=== PATIENT | male | born 1950 | race Caucasian/White ===

== ENCOUNTER 2022-10-25 11:56 | Emergency (ER) | payer OTHER ==
--- OUTSIDE RECORDS SUMMARY | 2022-10-25 12:03 | XMS REPORT | Continuity of Care Document ---
:1950 Author Organization [facility] t Address [address] [place] [address] Care Team Providers Name Role Phone Jenise Abebe MD Primary Care Physician KYLE_Magali Attending Clinician Unavailable Rosie SAENZ, Vivian Garcia Attending Clinician Jenise Abebe Attending Clinician [phone] AIDAN ESTRADA Attending Clinician Unavailable Frank Castano Attending Clinician [phone] rosalind Attending Clinician Unavailable ROSALIND Admitting Clinician Unavailable AIDAN ESTRADA Admitting Clinician Unavailable MD VIVIAN VELEZ Admitting Clinician Unavailable rosalind Admitting Clinician Unavailable Payers Payer Name Policy Type Policy Number Effective Date Expiration Date S dasia [facility] - [id number] [facility] (MEDICARE REPLACEMENT/ADVANTA GE - PPO) [facility] [id number] 2020 (MEDICARE 00:00:00 REPLACEMENT/ADVANTA GE - PPO) [employer] - NAP [id number] 2002 00:00:00 Problems Condition Condition Condition Status Onset Resolution Last Treating Co mments Source Name Details Category Date Date Treatment Clinician Date Restless Restless Problem Active [facility] legs Legs 2-14 [facility]: ty [facility] Bilateral Bilateral Problem Active [facility] tinnitus Tinnitus 2-14 Commun i 00:00: ty 00 [facility] Clin[facility] CPAP CPAP Disease Active Overview: Method i (continuou (continuou 08-[address] s positive s positive 00:00: g of this Hospita airway airway 00 note l pressure) pressure) might be dependence dependence different from the original. Currently not using Dental Dental Disease Active Overview: [facility] i crown crown 08-[address] present present 00:00: g of this Hospi ta 00 note l might be different from the original. 4 teeth w/gold crowns 1 tooth w/epoxy crown Depression Depression Disease Active Overview : [facility]i 08-[address] 00:00: g of this Hospita 00 note l might be different from the original. Mild controlle d by Rx med GERD GERD Disease Active Overview: Method i (gastroeso (gastroeso 08-[address] phageal phageal 00:00: g of this Hospi ta reflux reflux 00 note l disease) disease) might be different from the original. 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 Very mild symptoms Hyperchole Hyperchole Disease Active Overview : Methodi steremia steremia 08-[address] 00:00: g of this Hospita 00 note l might be different from the original. Controlle d with Rx med Hypertensi Hypertensi Disease Active M ethodi on on 08-30 00:00: Hospita 00 l Hypothyroi Hypothyroi Disease Active Overview : [facility]i dism dism 08-[address] 00:00: g of this Hospita 00 note l might be different from the original. Controlle d by Rx med Lower back Lower back Disease Active Overview : [facility] pain pain 08-[address] 00:00: g of this Hospita 00 note l might be different from the original. Pain has steadily intensifi ed Vision Vision Disease Active Overview: [facility] i loss loss 08-[address] 00:00: g of this Hospita 00 note l might be different from the original. Wear prescript ion glasses Sleep Sleep Disease Active Overview: [facility] i apnea apnea 08-[address] 00:00: g of this Hospita 00 note l might be different from the original. Gotten much better over past 18 mos Anesthesia Anesthesia Disease Active Overview : Method[facility] - Form[facility] 00:00: g of this Hospita 00 note l might be different from the original. LOW BP W/ COLONOSCO PY PROCEDURE . Lumbar Lumbar Disease Active Overview: Method i stenosis stenosis 07-[address] with with 00:00: g of this Hospita neurogenic neurogenic 00 note l claudicati claudicati might be on on different from the original. Added automatic ally from request for surgery [id number] Lumbar Lumbar Disease Active Overview: Method i radiculopa radiculopa 07-[address] thy thy 00:00: g of this Hospita 00 note l might be different from the original. 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 00:00: ty 00 [facility] Cervical Cervical Problem Active 2019-02 [facility] disc Disc 1-12 [facility]i disorder Disorder 00:00: ty 00 Hospita Clinics Low back Low Back Problem Active [facility] pain Pain 8-11 [facility]i 00:00: ty 00 [facility] Paresthesi Paresthesi Problem Active S [facility] a of lower a of Lower 8-11 Co [facility] extremity Extremity 00:00: ty 00 Hospita Clinics Otitis Otitis Problem Active 2018-02 [place] externa Externa 0-07 Communi 00:00: ty 00 [facility] Hypothyroi Hypothyroi Problem Active S [facility] dism dism 6-14 Communi 00:00: ty 00 [facility] Hyperlipid Hyperlipid Problem Active S [facility]y emia emia 6-14 Communi 00:00: ty 00 [facility] Essential Essential Problem Active [facility] hypertensi Hypertensi 08-08 [facility] on on 00:00: ty 00 [facility] Malaise Malaise Problem Active [place] 08-08 Communi 00:00: ty 00 [facility] Edema Edema Problem Active [place] 08-08 Communi 00:00: ty 00 [facility] Decreased Decreased Problem Active [facility] testostero Testostero 08-08 [facility] ne level ne Level 00:00: ty 00 [facility] Screening Screening Problem Active [facility] for for 08-08 Communi malignant Malignant 00:00: ty neoplasm Neoplasm 00 Hospit [facility] of of l prostate Prostate Clinic s Long-term Long-term Problem Active [facility] drug Drug 07-26 [facility]i therapy Therapy 00:00: ty 00 [facility] Allergies, Adverse Reactions, Alerts This patient has no known allergies or adverse reactions. Family History Family Member Diagnosis Comments Start Date Stop Date Source Natural mother Heart disease [facility] Natural mother Hypertension [facility] Social History Social Habit Start Date Stop Date Quantity Comments Source Gender identity 2021-04-21 Identifies as male M ethodist 09:01:57 gender (finding) [facility] Sexual orientation 2021-04-21 Heterosexual Meth odist 09:01:57 (finding) Hospital History of Social 2021-10-26 2021-10-26 [facility] function 00:00:00 00:00:00 Hospital Alcohol intake 2021-10-26 2021-10-26 Current drinker of Me thodist 00:00:00 00:00:00 alcohol (finding) [facility] Tobacco use and 2021-05-18 2021-05-18 Smokeless tobacco [facility] exposure 00:00:00 00:00:00 non-user Hospital Alcohol Comment 2021-04-20 2021-04-20 2x per week [facility] 00:00:00 00:00:00 Hospital Sex Ass[birth year] At [birth year] M [facility] 00:00:00 00:00:00 Hospital Smoking Status Start Date Stop Date Source Former Smoker [facility] Never smoked tobacco [facility] Medications Ordered Filled Start Stop Current Ordering Indication Dosage Frequency Signature Comments Components Source Medication Medication Date Date Medication? Clinician (SIG) Name Name Paloma 40 Paloma 40 No Paloma 40 [place] mg/mL mg/mL 1-12 mg/mL Communi suspension suspension 11:36: suspension ty for for 31 for Hospita injectionTa injectionTa injectionT l ke 2 mL by ke 2 mL by christina 2 mL Clinics injection injection by route. route. injection route. triamterene Yes 1{tbl} QD Take 1 [facility] -hydrochlor 10-[address] othiazid 10:52: mouth Hospita (MAXZIDE) 02 daily. l 75-50 mg per tablet amlodipine- Yes 1{tbl} QD Take 1 [facility] valsartan - tablet by st (EXFORGE) 10:52: mouth Hospita 10-320 mg 02 daily. l per tablet cetirizine Yes 10mg QD Take 10 mg M ethodi (ZyrTEC) 10 10-[address] MG tablet 10:52: daily. Hospit a l folic acid Yes 1mg QD Take 1 mg [facility] (FOLVITE) 1 10-[address] MG tablet 10:52: daily. Hospit a 02 l CHOLECALCIF Yes [id number] Q7D Take Meth danai LUIS FERNANDO, 10-[address] VITAMIN D3, 10:52: Units by Ho spita ORAL 02 mouth once l a week. Every Saturday venlafaxine Yes 150mg QD Take 1 Met hodi XR 6-[address] (EFFEXOR-XR 00:00: mouth Hospi ta ) 150 MG 24 00 daily. l hr capsule allopurinoL 0 Yes 300mg QD Take 1 Met hodi (ZYLOPRIM) 5-[address] 300 MG 00:00: mouth Hospita tablet 00 daily. l atorvastati 0 Yes 20mg QD Take 20 mg Methodi n (LIPITOR) -[address] 20 mg 00:00: daily. Hospita tablet 00 l levothyroxi 0 Yes 175ug QD Take 1 Met hodi ne 4-[address] (SYNTHROID) 00:00: mouth Hospi ta 175 mcg 00 daily. l tablet omeprazole 0 Yes 40mg QD Take 1 Metho di (PriLOSEC) 4-[address] 40 MG 00:00: mouth Hospita capsule 00 daily. l cholecalcif cholecalcif No 1capsul Q1W cholecalci [place] luis fernando luis fernando e(s) ferol Communi (vitamin (vitamin (vitamin ty D3) 1,250 D3) 1,250 D3) 1,250 Hospita mcg (50,000 mcg (50,000 mcg l unit) unit) (50,000 Clinics capsule capsule unit) Take 1 Take 1 capsule capsule capsule Take 1 every week every week capsule by oral by oral every week route for route for by oral 90 days. 90 days. route for 90 days. desonide desonide No desonide [facility] 0.05 % 0.05 % 0.05 % Communi topical topical topical ty cream APPLY cream APPLY cream Hospita SPARINGLY SPARINGLY APPLY l AND RUB AND RUB SPARINGLY Clin ics GENTLY INTO GENTLY INTO AND RUB THE THE GENTLY AFFECTED AFFECTED INTO THE AREA(S) BY AREA(S) BY AFFECTED TOPICAL TOPICAL AREA(S) BY ROUTE 2 ROUTE 2 TOPICAL TIMES PER TIMES PER ROUTE 2 DAY DAY TIMES PER DAY Effexor XR Effexor XR No 1capsul Q1D Effexor XR [place] 75 mg 75 mg e(s) 75 mg Communi capsule,ext capsule,ext capsule,ex ty ended ended tended Hospita release release release l Take 1 Take 1 Take 1 Clinics capsule capsule capsule every day every day every day by oral by oral by oral route. route. route. folic acid folic acid No folic acid [place] 1 mg tablet 1 mg tablet 1 mg C ommuni TAKE 1 TAKE 1 tablet ty TABLET BY TABLET BY TAKE 1 Hos racquel MOUTH EVERY MOUTH EVERY TABLET BY l DAY DAY MOUTH Clinics EVERY DAY ketoconazol ketoconazol No ketoconazo [place] e 2 % e 2 % le 2 % Communi shampoo shampoo shampoo ty APPLY TO APPLY TO APPLY TO Hos racquel THE THE THE l AFFECTED AFFECTED AFFECTED Cli nics AREA, AREA, AREA, LATHER, LATHER, LATHER, LEAVE IN LEAVE IN LEAVE IN PLACE FOR [address] FOR MIN, AND MIN, AND 5 MIN, AND THEN RINSE THEN RINSE THEN RINSE OFF WITH OFF WITH OFF WITH WATER DAILY WATER DAILY WATER DAILY levothyroxi levothyroxi No levothyrox [place] ne 175 mcg ne 175 mcg ine 175 Communi tablet TAKE tablet TAKE mcg tablet ty 1 TABLET BY 1 TABLET BY TAKE 1 Hospita MOUTH EVERY MOUTH EVERY TABLET BY l DAY DAY MOUTH Clinics EVERY DAY meloxicam meloxicam No meloxicam [place] 15 mg 15 mg 15 mg Communi tablet TAKE tablet TAKE tablet ty 1 TABLET BY 1 TABLET BY TAKE 1 Hospita MOUTH EVERY MOUTH EVERY TABLET BY l DAY DAY MOUTH Clinics EVERY DAY triamterene triamterene No triamteren [place] 75 75 e 75 Communi mg-hydrochl mg-hydrochl mg-hydroch ty orothiazide orothiazide lorothiazi Hospita 50 mg 50 mg de 50 mg l tablet TAKE tablet TAKE tablet Clinics 1 TABLET BY 1 TABLET BY TAKE 1 MOUTH EVERY MOUTH EVERY TABLET BY DAY DAY MOUTH EVERY DAY allopurinol allopurinol No allopurino [place] 100 mg 100 mg l 100 mg Communi tablet TAKE tablet TAKE tablet ty 1 TABLET BY 1 TABLET BY TAKE 1 Hospita MOUTH EVERY MOUTH EVERY TABLET BY l DAY DAY MOUTH Clinics EVERY DAY amlodipine amlodipine No amlodipine [place] 10 10 10 Communi mg-valsarta mg-valsarta mg-valsart ty n 320 mg n 320 mg an 320 mg Ho spita tablet TAKE tablet TAKE tablet l 1 TABLET BY 1 TABLET BY TAKE 1 Clinics MOUTH EVERY MOUTH EVERY TABLET BY DAY DAY MOUTH EVERY DAY atorvastati atorvastati No atorvastat [place] n 10 mg n 10 mg in 10 mg Commu ni tablet TAKE tablet TAKE tablet ty 1 TABLET BY 1 TABLET BY TAKE 1 Hospita MOUTH EVERY MOUTH EVERY TABLET BY l DAY DAY MOUTH Clinics EVERY DAY cholecalcif cholecalcif No cholecalci [place] luis fernando luis fernando ferol Communi (vitamin (vitamin (vitamin ty D3) 1,250 D3) 1,250 D3) 1,250 Hospita mcg (50,000 mcg (50,000 mcg l unit) unit) (50,000 Clinics capsule capsule unit) TAKE 1 TAKE 1 capsule CAPSULE CAPSULE TAKE 1 EVERY WEEK EVERY WEEK CAPSULE BY ORAL BY ORAL EVERY WEEK ROUTE FOR ROUTE FOR BY ORAL 90 DAYS. 90 DAYS. ROUTE FOR 90 DAYS. folic acid folic acid No folic acid [place] 1 mg tablet 1 mg tablet 1 mg C ommuni TAKE 1 TAKE 1 tablet ty TABLET BY TABLET BY TAKE 1 Hos racquel MOUTH EVERY MOUTH EVERY TABLET BY l DAY DAY MOUTH Clinics EVERY DAY hydrocortis hydrocortis No hydrocorti [place] one 2.5 % one 2.5 % sone 2.5 % Communi lotion lotion lotion ty APPLY TO APPLY TO APPLY TO Hos racquel AFFECTED AFFECTED AFFECTED l AREA TWICE AREA TWICE AREA TWICE Clinics A DAY A DAY A DAY NEEDED WHEN NEEDED WHEN NEEDED FLARED RED FLARED RED WHEN FLARED RED ketoconazol ketoconazol No ketoconazo [place] e 2 % e 2 % le 2 % Communi shampoo shampoo shampoo ty APPLY TO APPLY TO APPLY TO Hos racquel THE THE THE l AFFECTED AFFECTED AFFECTED Cli nics AREA, AREA, AREA, LATHER, LATHER, LATHER, LEAVE IN LEAVE IN LEAVE IN PLACE FOR [address] FOR MIN, AND MIN, AND 5 MIN, AND THEN RINSE THEN RINSE THEN RINSE OFF WITH OFF WITH OFF WITH WATER DAILY WATER DAILY WATER DAILY levothyroxi levothyroxi No levothyrox [place] ne 175 mcg ne 175 mcg ine 175 Communi tablet TAKE tablet TAKE mcg tablet ty 1 TABLET BY 1 TABLET BY TAKE 1 Hospita MOUTH EVERY MOUTH EVERY TABLET BY l DAY DAY MOUTH Clinics EVERY DAY meloxicam meloxicam No meloxicam [place] 15 mg 15 mg 15 mg Communi tablet TAKE tablet TAKE tablet ty 1 TABLET BY 1 TABLET BY TAKE 1 Hospita MOUTH EVERY MOUTH EVERY TABLET BY l DAY DAY MOUTH Clinics EVERY DAY triamterene triamterene No triamteren [place] 75 75 e 75 Communi mg-hydrochl mg-hydrochl mg-hydroch ty orothiazide orothiazide lorothiazi Hospita 50 mg 50 mg de 50 mg l tablet TAKE tablet TAKE tablet Clinics 1 TABLET BY 1 TABLET BY TAKE 1 MOUTH EVERY MOUTH EVERY TABLET BY DAY DAY MOUTH EVERY DAY venlafaxine venlafaxine No 1capsul Q1D venlafaxin [place] ER 150 mg ER 150 mg e(s) e ER 150 C om[facility]i capsule,ext capsule,ext mg t y ended ended capsule,ex Hospita release 24 release 24 tended l hr Take 1 hr Take 1 release 24 Clinics capsule capsule hr Take 1 every day every day capsule by oral by oral every day route. route. by oral route. allopurinol allopurinol No allopurino [place] 100 mg 100 mg l 100 mg Communi tablet TAKE tablet TAKE tablet ty 1 TABLET BY 1 TABLET BY TAKE 1 Hospita MOUTH EVERY MOUTH EVERY TABLET BY l DAY DAY MOUTH Clinics EVERY DAY allopurinol allopurinol No 1 Q1D allopurino [place] 300 mg 300 mg l 300 mg Communi tablet Take tablet Take tablet ty 1 tablet 1 tablet Take 1 Hospi ta every day every day tablet l by oral by oral every day Clin ics route. route. by oral route. amlodipine amlodipine No amlodipine [place] 10 10 10 Communi mg-valsarta mg-valsarta mg-valsart ty n 320 mg n 320 mg an 320 mg Ho spita tablet TAKE tablet TAKE tablet l 1 TABLET BY 1 TABLET BY TAKE 1 Clinics MOUTH EVERY MOUTH EVERY TABLET BY DAY DAY MOUTH EVERY DAY atorvastati atorvastati No atorvastat [place] n 10 mg n 10 mg in 10 mg Commu ni tablet TAKE tablet TAKE tablet ty 1 TABLET BY 1 TABLET BY TAKE 1 Hospita MOUTH EVERY MOUTH EVERY TABLET BY l DAY DAY MOUTH Clinics EVERY DAY cholecalcif cholecalcif No cholecalci [place] luis fernando luis fernando ferol Communi (vitamin (vitamin (vitamin ty D3) 1,250 D3) 1,250 D3) 1,250 Hospita mcg (50,000 mcg (50,000 mcg l unit) unit) (50,000 Clinics capsule capsule unit) TAKE 1 TAKE 1 capsule CAPSULE CAPSULE TAKE 1 EVERY WEEK EVERY WEEK CAPSULE BY ORAL BY ORAL EVERY WEEK ROUTE FOR ROUTE FOR BY ORAL 90 DAYS. 90 DAYS. ROUTE FOR 90 DAYS. folic acid folic acid No folic acid [place] 1 mg tablet 1 mg tablet 1 mg C om[facility]i TAKE 1 TAKE 1 tablet ty TABLET BY TABLET BY TAKE 1 Hos racquel MOUTH EVERY MOUTH EVERY TABLET BY l DAY DAY MOUTH Clinics EVERY DAY hydrocortis hydrocortis No hydrocorti [place] one 2.5 % one 2.5 % sone 2.5 % Communi lotion lotion lotion ty APPLY TO APPLY TO APPLY TO Hos racquel AFFECTED AFFECTED AFFECTED l AREA TWICE AREA TWICE AREA TWICE Clinics A DAY A DAY A DAY NEEDED WHEN NEEDED WHEN NEEDED FLARED RED FLARED RED WHEN FLARED RED ketoconazol ketoconazol No ketoconazo [place] e 2 % e 2 % le 2 % Communi shampoo shampoo shampoo ty APPLY TO APPLY TO APPLY TO Hos racquel THE THE THE l AFFECTED AFFECTED AFFECTED Cli nics AREA, AREA, AREA, LATHER, LATHER, LATHER, LEAVE IN LEAVE IN LEAVE IN PLACE FOR [address] FOR MIN, AND MIN, AND 5 MIN, AND THEN RINSE THEN RINSE THEN RINSE OFF WITH OFF WITH OFF WITH WATER DAILY WATER DAILY WATER DAILY levothyroxi levothyroxi No levothyrox [place] ne 175 mcg ne 175 mcg ine 175 Communi tablet TAKE tablet TAKE mcg tablet ty 1 TABLET BY 1 TABLET BY TAKE 1 Hospita MOUTH EVERY MOUTH EVERY TABLET BY l DAY DAY MOUTH Clinics EVERY DAY meloxicam meloxicam No meloxicam [place] 15 mg 15 mg 15 mg Communi tablet TAKE tablet TAKE tablet ty 1 TABLET BY 1 TABLET BY TAKE 1 Hospita MOUTH EVERY MOUTH EVERY TABLET BY l DAY DAY MOUTH Clinics EVERY DAY triamterene triamterene No triamteren [place] 75 75 e 75 Communi mg-hydrochl mg-hydrochl mg-hydroch ty orothiazide orothiazide lorothiazi Hospita 50 mg 50 mg de 50 mg l tablet TAKE tablet TAKE tablet Clinics 1 TABLET BY 1 TABLET BY TAKE 1 MOUTH EVERY MOUTH EVERY TABLET BY DAY DAY MOUTH EVERY DAY venlafaxine venlafaxine No venlafaxin [place] ER 150 mg ER 150 mg e ER 150 C [facility]i capsule,ext capsule,ext mg t y ended ended capsule,ex Hospita release 24 release 24 tended l hr Take 1 hr Take 1 release 24 Clinics capsule capsule hr Take 1 every day every day capsule by oral by oral every day route. route. by oral route. allopurinol allopurinol No allopurino [place] 300 mg 300 mg l 300 mg Communi tablet Take tablet Take tablet ty 1 tablet 1 tablet Take 1 Hospi ta every day every day tablet l by oral by oral every day Clin ics route. route. by oral route. amlodipine amlodipine No amlodipine [place] 10 10 10 Communi mg-valsarta mg-valsarta mg-valsart ty n 320 mg n 320 mg an 320 mg Ho spita tablet TAKE tablet TAKE tablet l 1 TABLET BY 1 TABLET BY TAKE 1 Clinics MOUTH EVERY MOUTH EVERY TABLET BY DAY DAY MOUTH EVERY DAY atorvastati atorvastati No atorvastat [place] n 10 mg n 10 mg in 10 mg Commu ni tablet TAKE tablet TAKE tablet ty 1 TABLET BY 1 TABLET BY TAKE 1 Hospita MOUTH EVERY MOUTH EVERY TABLET BY l DAY DAY MOUTH Clinics EVERY DAY cholecalcif cholecalcif No cholecalci [place] luis fernando luis fernando hoff Andreyi (vitamin (vitamin (vitamin ty D3) 1,250 D3) 1,250 D3) 1,250 Hospita mcg (50,000 mcg (50,000 mcg l unit) unit) (50,000 Clinics capsule capsule unit) TAKE 1 TAKE 1 capsule CAPSULE CAPSULE TAKE 1 EVERY WEEK EVERY WEEK CAPSULE BY ORAL BY ORAL EVERY WEEK ROUTE FOR ROUTE FOR BY ORAL 90 DAYS. 90 DAYS. ROUTE FOR 90 DAYS. desonide desonide No desonide [facility] 0.05 % 0.05 % 0.05 % Communi topical topical topical ty cream us cream us cream us [facility] bid bid bid l sparingly sparingly sparingly Clinics prn never prn never prn never to face to face to face folic acid folic acid No folic acid [place] 1 mg tablet 1 mg tablet 1 mg C [facility]i TAKE 1 TAKE 1 tablet ty TABLET BY TABLET BY TAKE 1 Hos [facility]quel MOUTH EVERY MOUTH EVERY TABLET BY l DAY DAY MOUTH Clinics EVERY DAY hydrocortis hydrocortis No hydrocorti [place] one 2.5 % one 2.5 % sone 2.5 % Communi lotion lotion lotion ty APPLY TO APPLY TO APPLY TO [facility] AFFECTED AFFECTED AFFECTED l AREA TWICE AREA TWICE AREA TWICE Clinics A DAY A DAY A DAY NEEDED WHEN NEEDED WHEN NEEDED FLARED RED FLARED RED WHEN FLARED RED ketoconazol ketoconazol No ketoconazo [place] e 2 % e 2 % le 2 % Communi shampoo shampoo shampoo ty APPLY TO APPLY TO APPLY TO Hos racquel THE THE THE l AFFECTED AFFECTED AFFECTED Cli nics AREA, AREA, AREA, LATHER, LATHER, LATHER, LEAVE IN LEAVE IN LEAVE IN PLACE FOR [address] FOR MIN, AND MIN, AND 5 MIN, AND THEN RINSE THEN RINSE THEN RINSE OFF WITH OFF WITH OFF WITH WATER DAILY WATER DAILY WATER DAILY levothyroxi levothyroxi No levothyrox [place] ne 175 mcg ne 175 mcg ine 175 Communi tablet TAKE tablet TAKE mcg tablet ty 1 TABLET BY 1 TABLET BY TAKE 1 Hospita MOUTH EVERY MOUTH EVERY TABLET BY l DAY DAY MOUTH Clinics EVERY DAY meloxicam meloxicam No meloxicam [place] 15 mg 15 mg 15 mg Communi tablet TAKE tablet TAKE tablet ty 1 TABLET BY 1 TABLET BY TAKE 1 Hospita MOUTH EVERY MOUTH EVERY TABLET BY l DAY DAY MOUTH Clinics EVERY DAY tadalafil tadalafil No 1 tadalafil [place] 10 mg 10 mg 10 mg Communi tablet Take tablet Take tablet ty 1 tablet 1 tablet Take 1 Hospi ta every 72 every 72 tablet l hours by hours by every 72 Cli nics oral route oral route hours by as needed. as needed. oral route as needed. triamterene triamterene No triamteren [place] 75 75 e 75 Communi mg-hydrochl mg-hydrochl mg-hydroch ty orothiazide orothiazide lorothiazi Hospita 50 mg 50 mg de 50 mg l tablet TAKE tablet TAKE tablet Clinics 1 TABLET BY 1 TABLET BY TAKE 1 MOUTH EVERY MOUTH EVERY TABLET BY DAY DAY MOUTH EVERY DAY venlafaxine venlafaxine No venlafaxin [place] ER 150 mg ER 150 mg e ER 150 C [facility] capsule,ext capsule,ext mg t y ended ended capsule,ex Hospita release 24 release 24 tended l hr Take 1 hr Take 1 release 24 Clinics capsule capsule hr Take 1 every day every day capsule by oral by oral every day route. route. by oral route. Wellbutrin Wellbutrin No 1 Q1D Wellbutrin [place] XL 150 mg XL 150 mg XL 150 mg Communi 24 hr 24 hr 24 hr ty tablet, tablet, tablet, Hospit a extended extended extended l release release release Clinic s Take 1 Take 1 Take 1 tablet tablet tablet every day every day every day by oral by oral by oral route. route. route. allopurinol allopurinol No allopurino [place] 300 mg 300 mg l 300 mg Communi tablet Take tablet Take tablet ty 1 tablet 1 tablet Take 1 Hospi ta every day every day tablet l by oral by oral every day Clin ics route. route. by oral route. amlodipine amlodipine No amlodipine [place] 10 10 10 Communi mg-valsarta mg-valsarta mg-valsart ty n 320 mg n 320 mg an 320 mg Ho spita tablet TAKE tablet TAKE tablet l 1 TABLET BY 1 TABLET BY TAKE 1 Clinics MOUTH EVERY MOUTH EVERY TABLET BY DAY DAY MOUTH EVERY DAY atorvastati atorvastati No atorvastat [place] n 10 mg n 10 mg in 10 mg Commu ni tablet TAKE tablet TAKE tablet ty 1 TABLET BY 1 TABLET BY TAKE 1 Hospita MOUTH EVERY MOUTH EVERY TABLET BY l DAY DAY MOUTH Clinics EVERY DAY cholecalcif cholecalcif No cholecalci [place] l[facility] fernando hoff Communi (vitamin (vitamin (vitamin ty D3) 1,250 D3) 1,250 D3) 1,250 Hospita mcg (50,000 mcg (50,000 mcg l unit) unit) (50,000 Clinics capsule capsule unit) TAKE 1 TAKE 1 capsule CAPSULE CAPSULE TAKE 1 EVERY WEEK EVERY WEEK CAPSULE BY ORAL BY ORAL EVERY WEEK ROUTE FOR ROUTE FOR BY ORAL 90 DAYS. 90 DAYS. ROUTE FOR 90 DAYS. desonide desonide No desonide [facility] [place] 0.05 % 0.05 % 0.05 % Communi topical topical topical ty cream us cream us cream us [facility] bid bid bid l sparingly sparingly sparingly Clinics prn never prn never prn never to face to face to face folic acid folic acid No folic acid [place] 1 mg tablet 1 mg tablet 1 mg [facility] TAKE 1 TAKE 1 tablet ty TABLET BY TABLET BY TAKE 1 [facility] MOUTH EVERY MOUTH EVERY TABLET BY l DAY DAY MOUTH Clinics EVERY DAY hydrocortis hydrocortis No hydrocorti [place] one 2.5 % one 2.5 % sone 2.5 % Communi lotion lotion lotion ty APPLY TO APPLY TO APPLY TO [facility] AFFECTED AFFECTED AFFECTED l AREA TWICE AREA TWICE AREA TWICE Clinics A DAY A DAY A DAY NEEDED WHEN NEEDED WHEN NEEDED FLARED RED FLARED RED WHEN FLARED RED ketoconazol ketoconazol No ketoconazo [place] e 2 % e 2 % le 2 % [facility] shampoo shampoo shampoo ty APPLY TO APPLY TO APPLY TO [facility] THE THE THE l AFFECTED AFFECTED AFFECTED Cli nics AREA, AREA, AREA, LATHER, LATHER, LATHER, LEAVE IN LEAVE IN LEAVE IN PLACE FOR [address] FOR MIN, AND MIN, AND 5 MIN, AND THEN RINSE THEN RINSE THEN RINSE OFF WITH OFF WITH OFF WITH WATER DAILY WATER DAILY WATER DAILY levothyroxi levothyroxi No levothyrox [place] ne 175 mcg ne 175 mcg ine 175 [facility] tablet TAKE tablet TAKE mcg tablet ty 1 TABLET BY 1 TABLET BY TAKE 1 Hospita MOUTH EVERY MOUTH EVERY TABLET BY l DAY DAY MOUTH Clinics EVERY DAY meloxicam meloxicam No meloxicam [place] 15 mg 15 mg 15 mg [facility] tablet TAKE tablet TAKE tablet ty 1 TABLET BY 1 TABLET BY TAKE 1 Hospita MOUTH EVERY MOUTH EVERY TABLET BY l DAY DAY MOUTH Clinics EVERY DAY tadalafil tadalafil No 1 tadalafil [place] 10 mg 10 mg 10 mg [facility] tablet Take tablet Take tablet ty 1 tablet 1 tablet Take 1 Hospi ta every 72 every 72 tablet l hours by hours by every 72 Cli nics oral route oral route hours by as needed. as needed. oral route as needed. triamterene triamterene No triamteren [place] 75 75 e 75 [facility]i mg-hydrochl mg-hydrochl mg-hydroch ty orothiazide [facility]thiazide [facility] 50 mg 50 mg de 50 mg l tablet TAKE tablet TAKE tablet Clinics 1 TABLET BY 1 TABLET BY TAKE 1 MOUTH EVERY MOUTH EVERY TABLET BY DAY DAY MOUTH EVERY DAY venlafaxine venlafaxine No venlafaxin [place] ER 150 mg ER 150 mg e ER 150 [facility] capsule,ext capsule,ext mg t y ended ended capsule,ex [facility]osp[facility] release 24 release 24 tended l hr Take 1 hr Take 1 release 24 Clinics capsule capsule hr Take 1 every day every day capsule by oral by oral every day route. route. by oral route. Wellbutrin Wellbutrin No 1 Q1D Wellbutrin [place] XL 150 mg XL 150 mg XL 150 mg [facility] 24 hr 24 hr 24 hr ty tablet, tablet, tablet, Hospit a extended extended extended l release release release Clinic s Take 1 Take 1 Take 1 tablet tablet tablet every day every day every day by oral by oral by oral route. route. route. allopurinol allopurinol No allopurino [place] 300 mg 300 mg l 300 mg [facility] tablet Take tablet Take tablet ty 1 tablet 1 tablet Take 1 Hospi ta every day every day tablet l by oral by oral every day Clin ics route. route. by oral route. amlodipine amlodipine No amlodipine [place] 10 10 10 [facility] mg-valsarta mg-valsarta mg-valsart ty n 320 mg n 320 mg an 320 mg [facility] tablet TAKE tablet TAKE tablet l 1 TABLET BY 1 TABLET BY TAKE 1 Clinics MOUTH EVERY MOUTH EVERY TABLET BY DAY DAY MOUTH EVERY DAY atorvastati atorvastati No atorvastat [place] n 10 mg n 10 mg in 10 mg [facility] ni tablet TAKE tablet TAKE tablet ty 1 TABLET BY 1 TABLET BY TAKE 1 Hospita MOUTH EVERY MOUTH EVERY TABLET BY l DAY DAY MOUTH Clinics EVERY DAY cholecalcif cholecalcif No cholecalci [place] [facility] (vitamin (vitamin (vitamin ty D3) 1,250 D3) 1,250 D3) 1,250 [facility]ospita mcg (50,000 mcg (50,000 mcg l unit) unit) (50,000 Clinics capsule capsule unit) TAKE 1 TAKE 1 capsule CAPSULE CAPSULE TAKE 1 EVERY WEEK EVERY WEEK CAPSULE BY ORAL BY ORAL EVERY WEEK ROUTE FOR ROUTE FOR BY ORAL 90 DAYS. 90 DAYS. ROUTE FOR 90 DAYS. desonide desonide No desonide [facility] [place] 0.05 % 0.05 % 0.05 % [facility] topical topical topical ty cream us cream us cream us [facility] bid bid bid l sparingly sparingly sparingly Clinics prn never prn never prn never to face to face to face folic acid folic acid No folic acid [place] 1 mg tablet 1 mg tablet 1 mg [facility] TAKE 1 TAKE 1 tablet ty TABLET BY TABLET BY TAKE 1 [facility] MOUTH EVERY MOUTH EVERY TABLET BY l DAY DAY MOUTH Clinics EVERY DAY hydrocortis hydrocortis No hydrocorti [place] one 2.5 % one 2.5 % sone 2.5 % [facility]i lotion lotion lotion ty APPLY TO APPLY TO APPLY TO [facility] AFFECTED AFFECTED AFFECTED l AREA TWICE AREA TWICE AREA TWICE Clinics A DAY A DAY A DAY NEEDED WHEN NEEDED WHEN NEEDED FLARED RED FLARED RED WHEN FLARED RED ketoconazol ketoconazol No ketoconazo [place] e 2 % e 2 % le 2 % [facility] shampoo shampoo shampoo ty APPLY TO APPLY TO APPLY TO [facility] THE THE THE l AFFECTED AFFECTED AFFECTED Cli nics AREA, AREA, AREA, LATHER, LATHER, LATHER, LEAVE IN LEAVE IN LEAVE IN PLACE FOR [address] FOR MIN, AND MIN, AND 5 MIN, AND THEN RINSE THEN RINSE THEN RINSE OFF WITH OFF WITH OFF WITH WATER DAILY WATER DAILY WATER DAILY levothyroxi levothyroxi No levothyrox [place] ne 175 mcg ne 175 mcg ine 175 [facility] tablet TAKE tablet TAKE mcg tablet ty 1 TABLET BY 1 TABLET BY TAKE 1 Hospita MOUTH EVERY MOUTH EVERY TABLET BY l DAY DAY MOUTH Clinics EVERY DAY meloxicam meloxicam No meloxicam [place] 15 mg 15 mg 15 mg [facility] tablet TAKE tablet TAKE tablet ty 1 TABLET BY 1 TABLET BY TAKE 1 Hospita MOUTH EVERY MOUTH EVERY TABLET BY l DAY DAY MOUTH Clinics EVERY DAY tadalafil tadalafil No 1 tadalafil [place] 10 mg 10 mg 10 mg [facility] tablet Take tablet Take tablet ty 1 tablet 1 tablet Take 1 Hos[facility] ta every 72 every 72 tablet l hours by hours by every 72 Cli nics oral route oral route hours by as needed. as needed. oral route as needed. triamterene triamterene No triamteren [place] 75 75 e 75 [facility]i mg-hydrochl mg-hydrochl mg-hydroch ty orothiazide [facility]thiazide [facility] 50 mg 50 mg de 50 mg l tablet TAKE tablet TAKE tablet Clinics 1 TABLET BY 1 TABLET BY TAKE 1 MOUTH EVERY MOUTH EVERY TABLET BY DAY DAY MOUTH EVERY DAY venlafaxine venlafaxine No venlafaxin [place] ER 150 mg ER 150 mg e ER 150 [facility] capsule,ext capsule,ext mg t y ended ended capsule,ex [facility]osp[facility] release 24 release 24 tended l hr Take 1 hr Take 1 release 24 Clinics capsule capsule hr Take 1 every day every day capsule by oral by oral every day route. route. by oral route. Wellbutrin Wellbutrin No 1 Q1D Wellbutrin [place] XL 150 mg XL 150 mg XL 150 mg [facility] 24 hr 24 hr 24 hr ty tablet, tablet, tablet, Hospit a extended extended extended l release release release Clinic s Take 1 Take 1 Take 1 tablet tablet tablet every day every day every day by oral by oral by oral route. route. route. allopurinol allopurinol No allopurino [place] 300 mg 300 mg l 300 mg [facility] tablet TAKE tablet TAKE tablet ty 1 TABLET BY 1 TABLET BY TAKE 1 Hospita MOUTH DAILY MOUTH DAILY TABLET BY l MOUTH Clinics DAILY amlodipine amlodipine No amlodipine [place] 10 10 10 [facility] mg-valsarta mg-valsarta mg-valsart ty n 320 mg n 320 mg an 320 mg [facility] tablet TAKE tablet TAKE tablet l 1 TABLET BY 1 TABLET BY TAKE 1 Clinics MOUTH EVERY MOUTH EVERY TABLET BY DAY DAY MOUTH EVERY DAY atorvastati atorvastati No atorvastat [place] n 10 mg n 10 mg in 10 mg [facility] ni tablet TAKE tablet TAKE tablet ty 1 TABLET BY 1 TABLET BY TAKE 1 [facility]ospita MOUTH EVERY MOUTH EVERY TABLET BY l DAY DAY MOUTH Clinics EVERY DAY cholecalcif cholecalcif No cholecalci [place] [facility] (vitamin (vitamin (vitamin ty D3) 1,250 D3) 1,250 D3) 1,250 [facility]osp[facility] mcg (50,000 mcg (50,000 mcg l unit) unit) (50,000 Clinics capsule capsule unit) TAKE 1 TAKE 1 capsule CAPSULE CAPSULE TAKE 1 EVERY WEEK EVERY WEEK CAPSULE BY ORAL BY ORAL EVERY WEEK ROUTE FOR ROUTE FOR BY ORAL 90 DAYS. 90 DAYS. ROUTE FOR 90 DAYS. folic acid folic acid No folic acid [place] 1 mg tablet 1 mg tablet 1 mg [facility] TAKE 1 TAKE 1 tablet ty TABLET BY TABLET BY TAKE 1 [facility] MOUTH EVERY MOUTH EVERY TABLET BY l DAY DAY MOUTH Clinics EVERY DAY hydrocortis hydrocortis No hydrocorti [place] one 2.5 % one 2.5 % sone 2.5 % [facility]i lotion lotion lotion ty APPLY TO APPLY TO APPLY TO [facility] AFFECTED AFFECTED AFFECTED l AREA TWICE AREA TWICE AREA TWICE Clinics A DAY A DAY A DAY NEEDED WHEN NEEDED WHEN NEEDED FLARED RED FLARED RED WHEN FLARED RED ketoconazol ketoconazol No ketoconazo [place] e 2 % e 2 % le 2 % [facility] shampoo shampoo shampoo ty APPLY TO APPLY TO APPLY TO [facility] THE THE THE l AFFECTED AFFECTED AFFECTED Cli nics AREA, AREA, AREA, LATHER, LATHER, LATHER, LEAVE IN LEAVE IN LEAVE IN PLACE FOR [address] FOR MIN, AND MIN, AND 5 MIN, AND THEN RINSE THEN RINSE THEN RINSE OFF WITH OFF WITH OFF WITH WATER DAILY WATER DAILY WATER DAILY levothyroxi levothyroxi No levothyrox [place] ne 175 mcg ne 175 mcg ine 175 [facility] tablet TAKE tablet TAKE mcg tablet ty 1 TABLET BY 1 TABLET BY TAKE 1 [facility]ospita MOUTH EVERY MOUTH EVERY TABLET BY l DAY DAY MOUTH Clinics EVERY DAY meloxicam meloxicam No meloxicam [place] 15 mg 15 mg 15 mg [facility] tablet TAKE tablet TAKE tablet ty 1 TABLET BY 1 TABLET BY TAKE 1 [facility]ospita MOUTH EVERY MOUTH EVERY TABLET BY l DAY DAY MOUTH Clinics EVERY DAY tadalafil tadalafil No tadalafil [place] 10 mg 10 mg 10 mg [facility] tablet TAKE tablet TAKE tablet ty ONE (1) ONE (1) TAKE ONE Hospi ta TABLET(S) TABLET(S) (1) l BY MOUTH BY MOUTH TABLET(S) Cl inics ONCE EVERY ONCE EVERY BY MOUTH 72 HOURS 72 HOURS ONCE EVERY NEEDED. NEEDED. 72 HOURS NEEDED. triamcinolo triamcinolo No triamcinol [place] ne ne one [facility] acetonide acetonide acetonide ty 0.025 % 0.025 % 0.025 % Hospit a topical topical topical l cream APPLY cream APPLY cream Clinics A THIN A THIN APPLY A LAYER TO LAYER TO THIN LAYER THE THE TO THE AFFECTED AFFECTED AFFECTED AREA(S) BY AREA(S) BY AREA(S) BY TOPICAL TOPICAL TOPICAL ROUTE 2 ROUTE 2 ROUTE 2 TIMES PER TIMES PER TIMES PER DAY DAY DAY triamterene triamterene No triamteren [place] 75 75 e 75 [facility] mg-hydrochl mg-hydrochl mg-hydroch ty orothiazide [facility]thiazide [facility] 50 mg 50 mg de 50 mg l tablet TAKE tablet TAKE tablet Clinics 1 TABLET BY 1 TABLET BY TAKE 1 MOUTH EVERY MOUTH EVERY TABLET BY DAY DAY MOUTH EVERY DAY venlafaxine venlafaxine No venlafaxin [place] ER 150 mg ER 150 mg e ER 150 [facility] capsule,ext capsule,ext mg t y ended ended capsule,ex [facility]osp[facility] release 24 release 24 tended l hr Take 1 hr Take 1 release 24 Clinics capsule capsule hr Take 1 every day every day capsule by oral by oral every day route. route. by oral route. Wellbutrin Wellbutrin No 1 Q1D Wellbutrin [place] XL 150 mg XL 150 mg XL 150 mg [facility] 24 hr 24 hr 24 hr ty tablet, tablet, tablet, Hospit a extended extended extended l release release release Clinic s Take 1 Take 1 Take 1 tablet tablet tablet every day every day every day by oral by oral by oral route. route. route. allopurinol allopurinol No allopurino [place] 300 mg 300 mg l 300 mg [facility] tablet TAKE tablet TAKE tablet ty 1 TABLET BY 1 TABLET BY TAKE 1 [facility]ospita MOUTH DAILY MOUTH DAILY TABLET BY l MOUTH Clinics DAILY amlodipine amlodipine No amlodipine [place] 10 10 10 [facility] mg-valsarta mg-valsarta mg-valsart ty n 320 mg n 320 mg an 320 mg [facility] tablet TAKE tablet TAKE tablet l 1 TABLET BY 1 TABLET BY TAKE 1 Clinics MOUTH EVERY MOUTH EVERY TABLET BY DAY DAY MOUTH EVERY DAY atorvastati atorvastati No atorvastat [place] n 10 mg n 10 mg in 10 mg [facility] ni tablet TAKE tablet TAKE tablet ty 1 TABLET BY 1 TABLET BY TAKE 1 [facility]ospita MOUTH EVERY MOUTH EVERY TABLET BY l DAY DAY MOUTH Clinics EVERY DAY bupropion bupropion No bupropion [place] HCl XL 150 HCl XL 150 HCl XL 150 [facility] mg 24 hr mg 24 hr mg 24 hr ty tablet, tablet, tablet, Hospit a extended extended extended l release release release Clinic s Take 1 Take 1 Take 1 tablet tablet tablet every day every day every day by oral by oral by oral route. route. route. cholecalcif cholecalcif No cholecalci [place] [facility] (vitamin (vitamin (vitamin ty D3) 1,250 D3) 1,250 D3) 1,250 [facility] mcg (50,000 mcg (50,000 mcg l unit) unit) (50,000 Clinics capsule capsule unit) TAKE 1 TAKE 1 capsule CAPSULE CAPSULE TAKE 1 EVERY WEEK EVERY WEEK CAPSULE BY ORAL BY ORAL EVERY WEEK ROUTE FOR ROUTE FOR BY ORAL 90 DAYS. 90 DAYS. ROUTE FOR 90 DAYS. folic acid folic acid No folic acid [place] 1 mg tablet 1 mg tablet 1 mg [facility] TAKE 1 TAKE 1 tablet ty TABLET BY TABLET BY TAKE 1 [facility] MOUTH EVERY MOUTH EVERY TABLET BY l DAY DAY MOUTH Clinics EVERY DAY hydrocortis hydrocortis No hydrocorti [place] one 2.5 % one 2.5 % sone 2.5 % [facility] lotion lotion lotion ty APPLY TO APPLY TO APPLY TO [facility] AFFECTED AFFECTED AFFECTED l AREA TWICE AREA TWICE AREA TWICE Clinics A DAY A DAY A DAY NEEDED WHEN NEEDED WHEN NEEDED FLARED RED FLARED RED WHEN FLARED RED ketoconazol ketoconazol No ketoconazo [place] e 2 % e 2 % le 2 % [facility] shampoo shampoo shampoo ty APPLY TO APPLY TO APPLY TO [facility] THE THE THE l AFFECTED AFFECTED AFFECTED Cli nics AREA, AREA, AREA, LATHER, LATHER, LATHER, LEAVE IN LEAVE IN LEAVE IN PLACE FOR [address] FOR MIN, AND MIN, AND 5 MIN, AND THEN RINSE THEN RINSE THEN RINSE OFF WITH OFF WITH OFF WITH WATER DAILY WATER DAILY WATER DAILY levothyroxi levothyroxi No levothyrox [place] ne 175 mcg ne 175 mcg ine 175 [facility] tablet TAKE tablet TAKE mcg tablet ty 1 TABLET BY 1 TABLET BY TAKE 1 [facility]ospita MOUTH EVERY MOUTH EVERY TABLET BY l DAY DAY MOUTH Clinics EVERY DAY meloxicam meloxicam No meloxicam [place] 15 mg 15 mg 15 mg [facility] tablet TAKE tablet TAKE tablet ty 1 TABLET BY 1 TABLET BY TAKE 1 [facility] MOUTH EVERY MOUTH EVERY TABLET BY l DAY DAY MOUTH Clinics EVERY DAY omeprazole omeprazole No 1capsul Q1D omeprazole [place] 40 mg 40 mg e(s) 40 mg [facility] capsule,del capsule,del capsule,de ty ayed ayed layed [facility]ospita release release release l Take 1 Take 1 Take 1 Clinics capsule capsule capsule every day every day every day by oral by oral by oral route. route. route. tadalafil tadalafil No tadalafil [place] 10 mg 10 mg 10 mg [facility] tablet TAKE tablet TAKE tablet ty ONE (1) ONE (1) TAKE ONE [facility] ta TABLET(S) TABLET(S) (1) l BY MOUTH BY MOUTH TABLET(S) Cl inics ONCE EVERY ONCE EVERY BY MOUTH 72 HOURS 72 HOURS ONCE EVERY NEEDED. NEEDED. 72 HOURS NEEDED. triamcinolo triamcinolo No triamcinol [place] ne ne one [facility] acetonide acetonide acetonide ty 0.025 % 0.025 % 0.025 % Hospit a topical topical topical l cream APPLY cream APPLY cream Clinics A THIN A THIN APPLY A LAYER TO LAYER TO THIN LAYER THE THE TO THE AFFECTED AFFECTED AFFECTED AREA(S) BY AREA(S) BY AREA(S) BY TOPICAL TOPICAL TOPICAL ROUTE 2 ROUTE 2 ROUTE 2 TIMES PER TIMES PER TIMES PER DAY DAY DAY triamterene triamterene No triamteren [place] 75 75 e 75 [facility] mg-hydrochl mg-hydrochl mg-hydroch ty orothiazide [facility]thiazide [facility] 50 mg 50 mg de 50 mg l tablet TAKE tablet TAKE tablet [facility] 1 TABLET BY 1 TABLET BY TAKE 1 MOUTH EVERY MOUTH EVERY TABLET BY DAY DAY MOUTH EVERY DAY venlafaxine venlafaxine No venlafaxin [place] ER 150 mg ER 150 mg e ER 150 [facility] capsule,ext capsule,ext mg t y ended ended capsule,ex [facility] release 24 release 24 tended l hr Take 1 hr Take 1 release 24 Clinics capsule capsule hr Take 1 every day every day capsule by oral by oral every day route. route. by oral route. allopurinol allopurinol No allopurino [place] 300 mg 300 mg l 300 mg [facility] tablet TAKE tablet TAKE tablet ty 1 TABLET BY 1 TABLET BY TAKE 1 [facility]osp[facility] MOUTH DAILY MOUTH DAILY TABLET BY l MOUTH Clinics DAILY amlodipine amlodipine No amlodipine [place] 10 10 10 [facility] mg-valsarta mg-valsarta mg-valsart ty n 320 mg n 320 mg an 320 mg [facility] tablet TAKE tablet TAKE tablet l 1 TABLET BY 1 TABLET BY TAKE 1 Clinics MOUTH EVERY MOUTH EVERY TABLET BY DAY DAY MOUTH EVERY DAY atorvastati atorvastati No atorvastat [place] n 10 mg n 10 mg in 10 mg [facility] ni tablet TAKE tablet TAKE tablet ty 1 TABLET BY 1 TABLET BY TAKE 1 [facility] MOUTH EVERY MOUTH EVERY TABLET BY l DAY DAY MOUTH Clinics EVERY DAY bupropion bupropion No bupropion [place] HCl XL 150 HCl XL 150 HCl XL 150 [facility] mg 24 hr mg 24 hr mg 24 hr ty tablet, tablet, tablet, Hospit a extended extended extended l release release release Clinic s Take 1 Take 1 Take 1 tablet tablet tablet every day every day every day by oral by oral by oral route. route. route. cholecalcif cholecalcif No cholecalci [place] [facility] (vitamin (vitamin (vitamin ty D3) 1,250 D3) 1,250 D3) 1,250 [facility] mcg (50,000 mcg (50,000 mcg l unit) unit) (50,000 Clinics capsule capsule unit) TAKE 1 TAKE 1 capsule CAPSULE CAPSULE TAKE 1 EVERY WEEK EVERY WEEK CAPSULE BY ORAL BY ORAL EVERY WEEK ROUTE FOR ROUTE FOR BY ORAL 90 DAYS. 90 DAYS. ROUTE FOR 90 DAYS. folic acid folic acid No folic acid [place] 1 mg tablet 1 mg tablet 1 mg [facility] TAKE 1 TAKE 1 tablet ty TABLET BY TABLET BY TAKE 1 [facility] MOUTH EVERY MOUTH EVERY TABLET BY l DAY DAY MOUTH Clinics EVERY DAY hydrocortis hydrocortis No hydrocorti [place] one 2.5 % one 2.5 % sone 2.5 % [facility] lotion lotion lotion ty APPLY TO APPLY TO APPLY TO [facility] AFFECTED AFFECTED AFFECTED l AREA TWICE AREA TWICE AREA TWICE Clinics A DAY A DAY A DAY NEEDED WHEN NEEDED WHEN NEEDED FLARED RED FLARED RED WHEN FLARED RED ketoconazol ketoconazol No ketoconazo [place] e 2 % e 2 % le 2 % [facility] shampoo shampoo shampoo ty APPLY TO APPLY TO APPLY TO [facility] THE THE THE l AFFECTED AFFECTED AFFECTED Cli nics AREA, AREA, AREA, LATHER, LATHER, LATHER, LEAVE IN LEAVE IN LEAVE IN PLACE FOR [address] FOR MIN, AND MIN, AND 5 MIN, AND THEN RINSE THEN RINSE THEN RINSE OFF WITH OFF WITH OFF WITH WATER DAILY WATER DAILY WATER DAILY levothyroxi levothyroxi No levothyrox [place] ne 175 mcg ne 175 mcg ine 175 [facility] tablet TAKE tablet TAKE mcg tablet ty 1 TABLET BY 1 TABLET BY TAKE 1 [facility] MOUTH EVERY MOUTH EVERY TABLET BY l DAY DAY MOUTH Clinics EVERY DAY meloxicam meloxicam No meloxicam [place] 15 mg 15 mg 15 mg [facility] tablet TAKE tablet TAKE tablet ty 1 TABLET BY 1 TABLET BY TAKE 1 [facility] MOUTH EVERY MOUTH EVERY TABLET BY l DAY DAY MOUTH Clinics EVERY DAY omeprazole omeprazole No omeprazole [place] 40 mg 40 mg 40 mg [facility] capsule,del capsule,del capsule,de ty ayed ayed layed [facility]osp[facility] release release release l Take 1 Take 1 Take 1 Clinics capsule capsule capsule every day every day every day by oral by oral by oral route. route. route. tadalafil tadalafil No tadalafil [place] 10 mg 10 mg 10 mg [facility] tablet TAKE tablet TAKE tablet ty ONE (1) ONE (1) TAKE ONE [facility] TABLET(S) TABLET(S) (1) l BY MOUTH BY MOUTH TABLET(S) Cl inics ONCE EVERY ONCE EVERY BY MOUTH 72 HOURS 72 HOURS ONCE EVERY NEEDED. NEEDED. 72 HOURS NEEDED. triamcinolo triamcinolo No triamcinol [place] ne ne one [facility] acetonide acetonide acetonide ty 0.025 % 0.025 % 0.025 % Hospit a topical topical topical l cream APPLY cream APPLY cream Clinics A THIN A THIN APPLY A LAYER TO LAYER TO THIN LAYER THE THE TO THE AFFECTED AFFECTED AFFECTED AREA(S) BY AREA(S) BY AREA(S) BY TOPICAL TOPICAL TOPICAL ROUTE 2 ROUTE 2 ROUTE 2 TIMES PER TIMES PER TIMES PER DAY DAY DAY triamterene triamterene No triamteren [place] 75 75 e 75 [facility]i mg-hydrochl mg-hydrochl mg-hydroch ty orothiazide [facility]thiazide [facility] 50 mg 50 mg de 50 mg l tablet TAKE tablet TAKE tablet [facility] 1 TABLET BY 1 TABLET BY TAKE 1 MOUTH EVERY MOUTH EVERY TABLET BY DAY DAY MOUTH EVERY DAY venlafaxine venlafaxine No venlafaxin [place] ER 150 mg ER 150 mg e ER 150 [facility] capsule,ext capsule,ext mg t y ended ended capsule,ex [facility] release 24 release 24 tended l hr Take 1 hr Take 1 release 24 Clinics capsule capsule hr Take 1 every day every day capsule by oral by oral every day route. route. by oral route. allopurinol allopurinol No allopurino [place] 300 mg 300 mg l 300 mg [facility] tablet TAKE tablet TAKE tablet ty 1 TABLET BY 1 TABLET BY TAKE 1 [facility] MOUTH DAILY MOUTH DAILY TABLET BY l MOUTH Clinics DAILY amlodipine amlodipine No amlodipine [place] 10 10 10 [facility] mg-valsarta mg-valsarta mg-valsart ty n 320 mg n 320 mg an 320 mg [facility] tablet TAKE tablet TAKE tablet l 1 TABLET BY 1 TABLET BY TAKE 1 Clinics MOUTH EVERY MOUTH EVERY TABLET BY DAY DAY MOUTH EVERY DAY atorvastati atorvastati No atorvastat [place] n 10 mg n 10 mg in 10 mg [facility] ni tablet TAKE tablet TAKE tablet ty 1 TABLET BY 1 TABLET BY TAKE 1 [facility] MOUTH EVERY MOUTH EVERY TABLET BY l DAY DAY MOUTH Clinics EVERY DAY bupropion bupropion No bupropion [place] HCl XL 150 HCl XL 150 HCl XL 150 [facility] mg 24 hr mg 24 hr mg 24 hr ty tablet, tablet, tablet, Hospit a extended extended extended l release release release Clinic s Take 1 Take 1 Take 1 tablet tablet tablet every day every day every day by oral by oral by oral route. route. route. cholecalcif cholecalcif No cholecalci [place] [facility] (vitamin (vitamin (vitamin ty D3) 1,250 D3) 1,250 D3) 1,250 [facility] mcg (50,000 mcg (50,000 mcg l unit) unit) (50,000 Clinics capsule capsule unit) TAKE 1 TAKE 1 capsule CAPSULE CAPSULE TAKE 1 EVERY WEEK EVERY WEEK CAPSULE BY ORAL BY ORAL EVERY WEEK ROUTE FOR ROUTE FOR BY ORAL 90 DAYS. 90 DAYS. ROUTE FOR 90 DAYS. folic acid folic acid No folic acid [place] 1 mg tablet 1 mg tablet 1 mg [facility] TAKE 1 TAKE 1 tablet ty TABLET BY TABLET BY TAKE 1 [facility] MOUTH EVERY MOUTH EVERY TABLET BY l DAY DAY MOUTH Clinics EVERY DAY hydrocortis hydrocortis No hydrocorti [place] one 2.5 % one 2.5 % sone 2.5 % [facility] lotion lotion lotion ty APPLY TO APPLY TO APPLY TO [facility] AFFECTED AFFECTED AFFECTED l AREA TWICE AREA TWICE AREA TWICE Clinics A DAY A DAY A DAY NEEDED WHEN NEEDED WHEN NEEDED FLARED RED FLARED RED WHEN FLARED RED ketoconazol ketoconazol No ketoconazo [place] e 2 % e 2 % le 2 % [facility]i shampoo shampoo shampoo ty APPLY TO APPLY TO APPLY TO [facility] THE THE THE l AFFECTED AFFECTED AFFECTED Cli nics AREA, AREA, AREA, LATHER, LATHER, LATHER, LEAVE IN LEAVE IN LEAVE IN PLACE FOR [address] FOR MIN, AND MIN, AND 5 MIN, AND THEN RINSE THEN RINSE THEN RINSE OFF WITH OFF WITH OFF WITH WATER DAILY WATER DAILY WATER DAILY levothyroxi levothyroxi No levothyrox [place] ne 175 mcg ne 175 mcg ine 175 [facility] tablet TAKE tablet TAKE mcg tablet ty 1 TABLET BY 1 TABLET BY TAKE 1 [facility] MOUTH EVERY MOUTH EVERY TABLET BY l DAY DAY MOUTH Clinics EVERY DAY meloxicam meloxicam No meloxicam [place] 15 mg 15 mg 15 mg [facility] tablet TAKE tablet TAKE tablet ty 1 TABLET BY 1 TABLET BY TAKE 1 [facility] MOUTH EVERY MOUTH EVERY TABLET BY l DAY DAY MOUTH Clinics EVERY DAY omeprazole omeprazole No omeprazole [place] 40 mg 40 mg 40 mg [facility] capsule,del capsule,del capsule,de ty ayed ayed layed [facility]osp[facility] release release release l Take 1 Take 1 Take 1 Clinics capsule capsule capsule every day every day every day by oral by oral by oral route. route. route. tadalafil tadalafil No tadalafil [place] 10 mg 10 mg 10 mg [facility] tablet TAKE tablet TAKE tablet ty ONE (1) ONE (1) TAKE ONE [facility] TABLET(S) TABLET(S) (1) l BY MOUTH BY MOUTH TABLET(S) Cl inics ONCE EVERY ONCE EVERY BY MOUTH 72 HOURS 72 HOURS ONCE EVERY NEEDED. NEEDED. 72 HOURS NEEDED. triamcinolo triamcinolo No triamcinol [place] ne ne one [facility] acetonide acetonide acetonide ty 0.025 % 0.025 % 0.025 % Hospit a topical topical topical l cream APPLY cream APPLY cream Clinics A THIN A THIN APPLY A LAYER TO LAYER TO THIN LAYER THE THE TO THE AFFECTED AFFECTED AFFECTED AREA(S) BY AREA(S) BY AREA(S) BY TOPICAL TOPICAL TOPICAL ROUTE 2 ROUTE 2 ROUTE 2 TIMES PER TIMES PER TIMES PER DAY DAY DAY triamterene triamterene No triamteren [place] 75 75 e 75 [facility]i mg-hydrochl mg-hydrochl mg-hydroch ty orothiazide [facility]thiazide [facility] 50 mg 50 mg de 50 mg l tablet TAKE tablet TAKE tablet [facility] 1 TABLET BY 1 TABLET BY TAKE 1 MOUTH EVERY MOUTH EVERY TABLET BY DAY DAY MOUTH EVERY DAY venlafaxine venlafaxine No venlafaxin [place] ER 150 mg ER 150 mg e ER 150 [facility] capsule,ext capsule,ext mg t y ended ended capsule,ex [facility] release 24 release 24 tended l hr Take 1 hr Take 1 release 24 Clinics capsule capsule hr Take 1 every day every day capsule by oral by oral every day route. route. by oral route. allopurinol allopurinol No allopurino [place] 300 mg 300 mg l 300 mg [facility] tablet TAKE tablet TAKE tablet ty 1 TABLET BY 1 TABLET BY TAKE 1 [facility] MOUTH DAILY MOUTH DAILY TABLET BY l MOUTH Clinics DAILY amlodipine amlodipine No amlodipine [place] 10 10 10 [facility]i mg-valsarta mg-valsarta mg-valsart ty n 320 mg n 320 mg an 320 mg [facility] tablet TAKE tablet TAKE tablet l 1 TABLET BY 1 TABLET BY TAKE 1 Clinics MOUTH EVERY MOUTH EVERY TABLET BY DAY DAY MOUTH EVERY DAY atorvastati atorvastati No atorvastat [place] n 10 mg n 10 mg in 10 mg [facility] ni tablet TAKE tablet TAKE tablet ty 1 TABLET BY 1 TABLET BY TAKE 1 [facility] MOUTH EVERY MOUTH EVERY TABLET BY l DAY DAY MOUTH Clinics EVERY DAY bupropion bupropion No bupropion [place] HCl XL 150 HCl XL 150 HCl XL 150 [facility] mg 24 hr mg 24 hr mg 24 hr ty tablet, tablet, tablet, Hospit a extended extended extended l release release release Clinic s Take 1 Take 1 Take 1 tablet tablet tablet every day every day every day by oral by oral by oral route. route. route. Carafate 1 Carafate 1 No 1 TID Carafate 1 [place] gram tablet gram tablet gram [facility] Take 1 Take 1 tablet ty tablet 3 tablet 3 Take 1 [facility]pi ta times a day times a day tablet 3 l by oral by oral times a Clinic s route for route for day by 14 days. 14 days. oral route for 14 days. cholecalcif cholecalcif No cholecalci [place] [facility] (vitamin (vitamin (vitamin ty D3) 1,250 D3) 1,250 D3) 1,250 [facility] mcg (50,000 mcg (50,000 mcg l unit) unit) (50,000 Clinics capsule capsule unit) TAKE 1 TAKE 1 capsule CAPSULE CAPSULE TAKE 1 EVERY WEEK EVERY WEEK CAPSULE BY ORAL BY ORAL EVERY WEEK ROUTE FOR ROUTE FOR BY ORAL 90 DAYS. 90 DAYS. ROUTE FOR 90 DAYS. folic acid folic acid No folic acid [place] 1 mg tablet 1 mg tablet 1 mg [facility] TAKE 1 TAKE 1 tablet ty TABLET BY TABLET BY TAKE 1 [facility] MOUTH EVERY MOUTH EVERY TABLET BY l DAY DAY MOUTH Clinics EVERY DAY hydrocortis hydrocortis No hydrocorti [place] one 2.5 % one 2.5 % sone 2.5 % [facility] lotion lotion lotion ty APPLY TO APPLY TO APPLY TO [facility] AFFECTED AFFECTED AFFECTED l AREA TWICE AREA TWICE AREA TWICE Clinics A DAY A DAY A DAY NEEDED WHEN NEEDED WHEN NEEDED FLARED RED FLARED RED WHEN FLARED RED ketoconazol ketoconazol No ketoconazo [place] e 2 % e 2 % le 2 % [facility] shampoo shampoo shampoo ty APPLY TO APPLY TO APPLY TO [facility] THE THE THE l AFFECTED AFFECTED AFFECTED Cli nics AREA, AREA, AREA, LATHER, LATHER, LATHER, LEAVE IN LEAVE IN LEAVE IN PLACE FOR [address] FOR MIN, AND MIN, AND 5 MIN, AND THEN RINSE THEN RINSE THEN RINSE OFF WITH OFF WITH OFF WITH WATER DAILY WATER DAILY WATER DAILY levothyroxi levothyroxi No levothyrox [place] ne 175 mcg ne 175 mcg ine 175 [facility] tablet TAKE tablet TAKE mcg tablet ty 1 TABLET BY 1 TABLET BY TAKE 1 [facility] MOUTH EVERY MOUTH EVERY TABLET BY l DAY DAY MOUTH Clinics EVERY DAY meloxicam meloxicam No meloxicam [place] 15 mg 15 mg 15 mg [facility] tablet TAKE tablet TAKE tablet ty 1 TABLET BY 1 TABLET BY TAKE 1 [facility] MOUTH EVERY MOUTH EVERY TABLET BY l DAY DAY MOUTH Clinics EVERY DAY omeprazole omeprazole No 1capsul BID omeprazole [place] 40 mg 40 mg e(s) 40 mg [facility] capsule,del capsule,del capsule,de ty ayed ayed layed [facility] release release release l Take 1 Take 1 Take 1 Clinics capsule capsule capsule twice a day twice a day twice a by oral by oral day by route for route for oral route 30 days. 30 days. for 30 days. tadalafil tadalafil No tadalafil [place] 10 mg 10 mg 10 mg [facility] tablet TAKE tablet TAKE tablet ty ONE (1) ONE (1) TAKE ONE [facility] ta TABLET(S) TABLET(S) (1) l BY MOUTH BY MOUTH TABLET(S) Cl inics ONCE EVERY ONCE EVERY BY MOUTH 72 HOURS 72 HOURS ONCE EVERY NEEDED. NEEDED. 72 HOURS NEEDED. triamcinolo triamcinolo No triamcinol [place] ne ne one [facility] acetonide acetonide acetonide ty 0.025 % 0.025 % 0.025 % Hospit a topical topical topical l cream APPLY cream APPLY cream Clinics A THIN A THIN APPLY A LAYER TO LAYER TO THIN LAYER THE THE TO THE AFFECTED AFFECTED AFFECTED AREA(S) BY AREA(S) BY AREA(S) BY TOPICAL TOPICAL TOPICAL ROUTE 2 ROUTE 2 ROUTE 2 TIMES PER TIMES PER TIMES PER DAY DAY DAY triamterene triamterene No triamteren [place] 75 75 e 75 [facility] mg-hydrochl mg-hydrochl mg-hydroch ty orothiazide orothiazide [facility] 50 mg 50 mg de 50 mg l tablet TAKE tablet TAKE tablet Clinics 1 TABLET BY 1 TABLET BY TAKE 1 MOUTH EVERY MOUTH EVERY TABLET BY DAY DAY MOUTH EVERY DAY venlafaxine venlafaxine No venlafaxin [place] ER 150 mg ER 150 mg e ER 150 [facility] capsule,ext capsule,ext mg t y ended ended capsule,ex [facility] release 24 release 24 tended l hr Take 1 hr Take 1 release 24 Clinics capsule capsule hr Take 1 every day every day capsule by oral by oral every day route. route. by oral route. allopurinol allopurinol No allopurino [place] 300 mg 300 mg l 300 mg [facility] tablet TAKE tablet TAKE tablet ty 1 TABLET BY 1 TABLET BY TAKE 1 [facility] MOUTH MOUTH DAILY TABLET BY l DAILY MOUTH Clinics DAILY amlodipine amlodipine No amlodipine [place] 10 10 10 [facility] mg-valsarta mg-valsarta mg-valsart ty n 320 mg n 320 mg an 320 mg [facility] tablet TAKE tablet TAKE tablet l 1 TABLET BY 1 TABLET BY TAKE 1 Clinics MOUTH EVERY MOUTH EVERY TABLET BY DAY DAY MOUTH EVERY DAY atorvastati atorvastati No atorvastat [place] n 10 mg n 10 mg in 10 mg [facility] ni tablet TAKE tablet TAKE tablet ty 1 TABLET BY 1 TABLET BY TAKE 1 [facility] MOUTH EVERY MOUTH EVERY TABLET BY l DAY DAY MOUTH Clinics EVERY DAY bupropion bupropion No bupropion [place] HCl XL 150 HCl XL 150 HCl XL 150 [facility] mg 24 hr mg 24 hr mg 24 hr ty tablet, tablet, tablet, Hospit a extended extended extended l release release release Clinic s Take 1 Take 1 Take 1 tablet tablet tablet every day every day every day by oral by oral by oral route. route. route. cholecalcif cholecalcif No cholecalci [place] [facility] (vitamin (vitamin (vitamin ty D3) 1,250 D3) 1,250 D3) 1,250 [facility] mcg (50,000 mcg (50,000 mcg l unit) unit) (50,000 Clinics capsule capsule unit) TAKE 1 TAKE 1 capsule CAPSULE CAPSULE TAKE 1 EVERY WEEK EVERY WEEK CAPSULE BY ORAL BY ORAL EVERY WEEK ROUTE FOR ROUTE FOR BY ORAL 90 DAYS. 90 DAYS. ROUTE FOR 90 DAYS. folic acid folic acid No folic acid [place] 1 mg tablet 1 mg tablet 1 mg [facility] TAKE 1 TAKE 1 tablet ty TABLET BY TABLET BY TAKE 1 [facility] MOUTH EVERY MOUTH EVERY TABLET BY l DAY DAY MOUTH Clinics EVERY DAY hydrocortis hydrocortis No hydrocorti [place] one 2.5 % one 2.5 % sone 2.5 % [facility]i lotion lotion lotion ty APPLY TO APPLY TO APPLY TO [facility] AFFECTED AFFECTED AFFECTED l AREA TWICE AREA TWICE AREA TWICE Clinics A DAY A DAY A DAY NEEDED WHEN NEEDED WHEN NEEDED FLARED RED FLARED RED WHEN FLARED RED ketoconazol ketoconazol No ketoconazo [place] e 2 % e 2 % le 2 % [facility] shampoo shampoo shampoo ty APPLY TO APPLY TO APPLY TO [facility] THE THE THE l AFFECTED AFFECTED AFFECTED Cli nics AREA, AREA, AREA, LATHER, LATHER, LATHER, LEAVE IN LEAVE IN LEAVE IN PLACE FOR [address] FOR MIN, AND MIN, AND 5 MIN, AND THEN RINSE THEN RINSE THEN RINSE OFF WITH OFF WITH OFF WITH WATER DAILY WATER DAILY WATER DAILY levothyroxi levothyroxi No levothyrox [place] ne 175 mcg ne 175 mcg ine 175 [facility] tablet TAKE tablet TAKE mcg tablet ty 1 TABLET BY 1 TABLET BY TAKE 1 [facility] MOUTH EVERY MOUTH EVERY TABLET BY l DAY DAY MOUTH Clinics EVERY DAY meloxicam meloxicam No meloxicam [place] 15 mg 15 mg 15 mg [facility] tablet TAKE tablet TAKE tablet ty 1 TABLET BY 1 TABLET BY TAKE 1 [facility] MOUTH EVERY MOUTH EVERY TABLET BY l DAY DAY MOUTH Clinics EVERY DAY methocarbam methocarbam No methocarba [place] ol 500 mg ol 500 mg mol 500 mg [facility] tablet tablet tablet ty PLEASE SEE PLEASE SEE PLEASE SEE Hospita ATTACHED ATTACHED ATTACHED l FOR FOR FOR Clinics DETAILED DETAILED DETAILED DIRECTIONS DIRECTIONS DIRECTIONS omeprazole omeprazole No omeprazole [place] 40 mg 40 mg 40 mg [facility] capsule,del capsule,del capsule,de ty ayed ayed layed [facility] release release release l TAKE 1 TAKE 1 TAKE 1 Clinics CAPSULE BY CAPSULE BY CAPSULE BY MOUTH TWICE MOUTH TWICE MOUTH A DAY FOR A DAY FOR TWICE A 30 DAYS 30 DAYS DAY FOR 30 DAYS sucralfate sucralfate No sucralfate [place] 1 gram 1 gram 1 gram [facility] tablet TAKE tablet TAKE tablet ty 1 TABLET BY 1 TABLET BY TAKE 1 [facility]ita MOUTH THREE MOUTH THREE TABLET BY l TIMES A DAY TIMES A DAY MOUTH Clinics FOR 14 DAYS FOR 14 DAYS THREE TIMES A DAY FOR 14 DAYS tadalafil tadalafil No tadalafil [place] 10 mg 10 mg 10 mg [facility] tablet TAKE tablet TAKE tablet ty ONE (1) ONE (1) TAKE ONE [facility] ta TABLET(S) TABLET(S) (1) l BY MOUTH BY MOUTH TABLET(S) Cl inics ONCE EVERY ONCE EVERY BY MOUTH 72 HOURS 72 HOURS ONCE EVERY NEEDED. NEEDED. 72 HOURS NEEDED. triamcinolo triamcinolo No triamcinol [place] ne ne one [facility] acetonide acetonide acetonide ty 0.025 % 0.025 % 0.025 % Hospit a topical topical topical l cream APPLY cream APPLY cream Clinics A THIN A THIN APPLY A LAYER TO LAYER TO THIN LAYER THE THE TO THE AFFECTED AFFECTED AFFECTED AREA(S) BY AREA(S) BY AREA(S) BY TOPICAL TOPICAL TOPICAL ROUTE 2 ROUTE 2 ROUTE 2 TIMES PER TIMES PER TIMES PER DAY DAY DAY triamterene triamterene No triamteren [place] 75 75 e 75 [facility] mg-hydrochl mg-hydrochl mg-hydroch ty orothiazide orothiazide [facility] 50 mg 50 mg de 50 mg l tablet TAKE tablet TAKE tablet Clinics 1 TABLET BY 1 TABLET BY TAKE 1 MOUTH EVERY MOUTH EVERY TABLET BY DAY DAY MOUTH EVERY DAY venlafaxine venlafaxine No venlafaxin [place] ER 150 mg ER 150 mg e ER 150 [facility] capsule,ext capsule,ext mg t y ended ended capsule,ex [facility] release 24 release 24 tended l hr Take 1 hr Take 1 release 24 Clinics capsule capsule hr Take 1 every day every day capsule by oral by oral every day route. route. by oral route. allopurinol allopurinol No allopurino [place] 300 mg 300 mg l 300 mg [facility] tablet TAKE tablet TAKE tablet ty 1 TABLET BY 1 TABLET BY TAKE 1 [facility] MOUTH DAILY MOUTH DAILY TABLET BY l MOUTH Clinics DAILY amlodipine amlodipine No amlodipine [place] 10 10 10 [facility]i mg-valsarta mg-valsarta mg-valsart ty n 320 mg n 320 mg an 320 mg [facility] tablet TAKE tablet TAKE tablet l 1 TABLET BY 1 TABLET BY TAKE 1 Clinics MOUTH EVERY MOUTH EVERY TABLET BY DAY DAY MOUTH EVERY DAY atorvastati atorvastati No atorvastat [place] n 10 mg n 10 mg in 10 mg [facility] ni tablet TAKE tablet TAKE tablet ty 1 TABLET BY 1 TABLET BY TAKE 1 [facility] MOUTH EVERY MOUTH EVERY TABLET BY l DAY DAY MOUTH Clinics EVERY DAY bupropion bupropion No bupropion [place] HCl XL 150 HCl XL 150 HCl XL 150 [facility] mg 24 hr mg 24 hr mg 24 hr ty tablet, tablet, tablet, Hospit a extended extended extended l release release release Clinic s Take 1 Take 1 Take 1 tablet tablet tablet every day every day every day by oral by oral by oral route. route. route. cholecalcif cholecalcif No cholecalci [place] [facility] (vitamin (vitamin (vitamin ty D3) 1,250 D3) 1,250 D3) 1,250 [facility] mcg (50,000 mcg (50,000 mcg l unit) unit) (50,000 Clinics capsule capsule unit) TAKE 1 TAKE 1 capsule CAPSULE CAPSULE TAKE 1 EVERY WEEK EVERY WEEK CAPSULE BY ORAL BY ORAL EVERY WEEK ROUTE FOR ROUTE FOR BY ORAL 90 DAYS. 90 DAYS. ROUTE FOR 90 DAYS. folic acid folic acid No folic acid [place] 1 mg tablet 1 mg tablet 1 mg [facility] TAKE 1 TAKE 1 tablet ty TABLET BY TABLET BY TAKE 1 [facility] MOUTH EVERY MOUTH EVERY TABLET BY l DAY DAY MOUTH Clinics EVERY DAY hydrocortis hydrocortis No hydrocorti [place] one 2.5 % one 2.5 % sone 2.5 % [facility]i lotion lotion lotion ty APPLY TO APPLY TO APPLY TO [facility] AFFECTED AFFECTED AFFECTED l AREA TWICE AREA TWICE AREA TWICE Clinics A DAY A DAY A DAY NEEDED WHEN NEEDED WHEN NEEDED FLARED RED FLARED RED WHEN FLARED RED ketoconazol ketoconazol No ketoconazo [place] e 2 % e 2 % le 2 % [facility] shampoo shampoo shampoo ty APPLY TO APPLY TO APPLY TO [facility] THE THE THE l AFFECTED AFFECTED AFFECTED Cli nics AREA, AREA, AREA, LATHER, LATHER, LATHER, LEAVE IN LEAVE IN LEAVE IN PLACE FOR [address] FOR MIN, AND MIN, AND 5 MIN, AND THEN RINSE THEN RINSE THEN RINSE OFF WITH OFF WITH OFF WITH WATER DAILY WATER DAILY WATER DAILY levothyroxi levothyroxi No levothyrox [place] ne 175 mcg ne 175 mcg ine 175 [facility] tablet TAKE tablet TAKE mcg tablet ty 1 TABLET BY 1 TABLET BY TAKE 1 [facility] MOUTH EVERY MOUTH EVERY TABLET BY l DAY DAY MOUTH Clinics EVERY DAY meloxicam meloxicam No meloxicam [place] 15 mg 15 mg 15 mg [facility] tablet TAKE tablet TAKE tablet ty 1 TABLET BY 1 TABLET BY TAKE 1 [facility] MOUTH DAILY MOUTH DAILY TABLET BY l MOUTH Clinics DAILY methocarbam methocarbam No methocarba [place] ol 500 mg ol 500 mg mol 500 mg [facility] tablet TAKE tablet TAKE tablet ty 1 TABLET BY 1 TABLET BY TAKE 1 [facility] MOUTH 3 MOUTH 3 TABLET BY l TIMES A DAY TIMES A DAY MOUTH 3 Clinics NEEDED NEEDED TIMES A FOR MUSCLE FOR MUSCLE DAY SPASMS SPASMS NEEDED FOR MUSCLE SPASMS omeprazole omeprazole No omeprazole [place] 40 mg 40 mg 40 mg [facility] capsule,del capsule,del capsule,de ty ayed ayed layed [facility] release release release l TAKE 1 TAKE 1 TAKE 1 Clinics CAPSULE BY CAPSULE BY CAPSULE BY MOUTH TWICE MOUTH TWICE MOUTH A DAY FOR A DAY FOR TWICE A 30 DAYS 30 DAYS DAY FOR 30 DAYS sucralfate sucralfate No sucralfate [place] 1 gram 1 gram 1 gram [facility] tablet TAKE tablet TAKE tablet ty 1 TABLET BY 1 TABLET BY TAKE 1 [facility] MOUTH THREE MOUTH THREE TABLET BY l TIMES A DAY TIMES A DAY MOUTH Clinics FOR 14 DAYS FOR 14 DAYS THREE TIMES A DAY FOR 14 DAYS tadalafil tadalafil No tadalafil [place] 10 mg 10 mg 10 mg [facility] tablet TAKE tablet TAKE tablet ty ONE (1) ONE (1) TAKE ONE [facility] ta TABLET(S) TABLET(S) (1) l BY MOUTH BY MOUTH TABLET(S) Cl inics ONCE EVERY ONCE EVERY BY MOUTH 72 HOURS 72 HOURS ONCE EVERY NEEDED. NEEDED. 72 HOURS NEEDED. triamcinolo triamcinolo No triamcinol [place] ne ne one [facility] acetonide acetonide acetonide ty 0.025 % 0.025 % 0.025 % Hospit a topical topical topical l cream APPLY cream APPLY cream Clinics A THIN A THIN APPLY A LAYER TO LAYER TO THIN LAYER THE THE TO THE AFFECTED AFFECTED AFFECTED AREA(S) BY AREA(S) BY AREA(S) BY TOPICAL TOPICAL TOPICAL ROUTE 2 ROUTE 2 ROUTE 2 TIMES PER TIMES PER TIMES PER DAY DAY DAY triamterene triamterene No triamteren [place] 75 75 e 75 [facility] mg-hydrochl mg-hydrochl mg-hydroch ty orothiazide orothiazide [facility] 50 mg 50 mg de 50 mg l tablet TAKE tablet TAKE tablet Clinics 1 TABLET BY 1 TABLET BY TAKE 1 MOUTH EVERY MOUTH EVERY TABLET BY DAY DAY MOUTH EVERY DAY venlafaxine venlafaxine No venlafaxin [place] ER 150 mg ER 150 mg e ER 150 [facility] capsule,ext capsule,ext mg t y ended ended capsule,ex [facility] release 24 release 24 tended l hr Take 1 hr Take 1 release 24 Clinics capsule capsule hr Take 1 every day every day capsule by oral by oral every day route. route. by oral route. allopurinol allopurinol No allopurino [place] 300 mg 300 mg l 300 mg [facility] tablet TAKE tablet TAKE tablet ty 1 TABLET BY 1 TABLET BY TAKE 1 [facility] MOUTH DAILY MOUTH DAILY TABLET BY l MOUTH Clinics DAILY amlodipine amlodipine No amlodipine [place] 10 10 10 [facility] mg-valsarta mg-valsarta mg-valsart ty n 320 mg n 320 mg an 320 mg [facility] tablet TAKE tablet TAKE tablet l 1 TABLET BY 1 TABLET BY TAKE 1 Clinics MOUTH DAILY MOUTH DAILY TABLET BY MOUTH DAILY atorvastati atorvastati No atorvastat [place] n 10 mg n 10 mg in 10 mg [facility] ni tablet TAKE tablet TAKE tablet ty 1 TABLET BY 1 TABLET BY TAKE 1 [facility] MOUTH DAILY MOUTH DAILY TABLET BY l MOUTH Clinics DAILY bupropion bupropion No bupropion [place] HCl XL 150 HCl XL 150 HCl XL 150 [facility] mg 24 hr mg 24 hr mg 24 hr ty tablet, tablet, tablet, Hospit a extended extended extended l release release release Clinic s Take 1 Take 1 Take 1 tablet tablet tablet every day every day every day by oral by oral by oral route. route. route. cholecalcif cholecalcif No cholecalci [place] [facility] (vitamin (vitamin (vitamin ty D3) 1,250 D3) 1,250 D3) 1,250 [facility] mcg (50,000 mcg (50,000 mcg l unit) unit) (50,000 Clinics capsule capsule unit) TAKE 1 TAKE 1 capsule CAPSULE CAPSULE TAKE 1 EVERY WEEK EVERY WEEK CAPSULE BY ORAL BY ORAL EVERY WEEK ROUTE FOR ROUTE FOR BY ORAL 90 DAYS. 90 DAYS. ROUTE FOR 90 DAYS. folic acid folic acid No folic acid [place] 1 mg tablet 1 mg tablet 1 mg [facility] TAKE 1 TAKE 1 tablet ty TABLET BY TABLET BY TAKE 1 [facility] MOUTH EVERY MOUTH EVERY TABLET BY l DAY DAY MOUTH Clinics EVERY DAY hydrocodone hydrocodone No 1 Q4H hydrocodon [place] 10 10 e 10 [facility] mg-acetamin mg-acetamin mg-acetami ty ophen 325 ophen 325 nophen 325 [facility] mg tablet mg tablet mg tablet l Take 1 Take 1 Take 1 Clinics tablet tablet tablet every 4 every 4 every 4 hours by hours by hours by oral route oral route oral route as needed. as needed. as needed. hydrocodone hydrocodone No hydrocodon [place] 5 5 e 5 [facility]i mg-acetamin mg-acetamin mg-acetami ty ophen 325 ophen 325 nophen 325 [facility] mg tablet mg tablet mg tablet l TAKE 1 TAKE 1 TAKE 1 Clinics TABLET BY TABLET BY TABLET BY MOUTH TWICE MOUTH TWICE MOUTH A DAY A DAY TWICE A NEEDED FOR NEEDED FOR DAY PAIN PAIN NEEDED FOR PAIN hydrocortis hydrocortis No hydrocorti [place] one 2.5 % one 2.5 % sone 2.5 % [facility]i lotion lotion lotion ty APPLY TO APPLY TO APPLY TO [facility] RASH ON RASH ON RASH ON l FACE AND FACE AND FACE AND Cli nics EARS TWICE EARS TWICE EARS TWICE A DAY A DAY A DAY NEEDED WHEN NEEDED WHEN NEEDED FLARED OR FLARED OR WHEN RED RED FLARED OR RED ketoconazol ketoconazol No ketoconazo [place] e 2 % e 2 % le 2 % [facility]i shampoo shampoo shampoo ty APPLY TO APPLY TO APPLY TO [facility] THE THE THE l AFFECTED AFFECTED AFFECTED Cli nics AREA, AREA, AREA, LATHER, LATHER, LATHER, LEAVE IN LEAVE IN LEAVE IN PLACE FOR [address] FOR MIN, AND MIN, AND 5 MIN, AND THEN RINSE THEN RINSE THEN RINSE OFF WITH OFF WITH OFF WITH WATER DAILY WATER DAILY WATER DAILY levothyroxi levothyroxi No levothyrox [place] ne 175 mcg ne 175 mcg ine 175 [facility] tablet TAKE tablet TAKE mcg tablet ty 1 TABLET BY 1 TABLET BY TAKE 1 [facility] MOUTH DAILY MOUTH DAILY TABLET BY l MOUTH Clinics DAILY meloxicam meloxicam No meloxicam [place] 15 mg 15 mg 15 mg [facility] tablet TAKE tablet TAKE tablet ty 1 TABLET BY 1 TABLET BY TAKE 1 [facility] MOUTH DAILY MOUTH DAILY TABLET BY l MOUTH Clinics DAILY methocarbam methocarbam No methocarba [place] ol 500 mg ol 500 mg mol 500 mg [facility] tablet TAKE tablet TAKE tablet ty 1 TABLET BY 1 TABLET BY TAKE 1 [facility] MOUTH 3 MOUTH 3 TABLET BY l TIMES A DAY TIMES A DAY MOUTH 3 Clinics NEEDED NEEDED TIMES A FOR MUSCLE FOR MUSCLE DAY SPASMS SPASMS NEEDED FOR MUSCLE SPASMS omeprazole omeprazole No omeprazole [place] 40 mg 40 mg 40 mg [facility] capsule,del capsule,del capsule,de ty ayed ayed layed [facility] release release release l TAKE 1 TAKE 1 TAKE 1 Clinics CAPSULE BY CAPSULE BY CAPSULE BY MOUTH TWICE MOUTH TWICE MOUTH A DAY FOR A DAY FOR TWICE A 30 DAYS 30 DAYS DAY FOR 30 DAYS sucralfate sucralfate No sucralfate [place] 1 gram 1 gram 1 gram [facility] tablet TAKE tablet TAKE tablet ty 1 TABLET BY 1 TABLET BY TAKE 1 [facility] MOUTH THREE MOUTH THREE TABLET BY l TIMES A DAY TIMES A DAY MOUTH Clinics FOR 14 DAYS FOR 14 DAYS THREE TIMES A DAY FOR 14 DAYS tadalafil tadalafil No tadalafil [place] 10 mg 10 mg 10 mg [facility] tablet TAKE tablet TAKE tablet ty ONE (1) ONE (1) TAKE ONE [facility] TABLET(S) TABLET(S) (1) l BY MOUTH BY MOUTH TABLET(S) Cl inics ONCE EVERY ONCE EVERY BY MOUTH 72 HOURS 72 HOURS ONCE EVERY NEEDED. NEEDED. 72 HOURS NEEDED. triamcinolo triamcinolo No triamcinol [place] ne ne one [facility]i acetonide acetonide acetonide ty 0.025 % 0.025 % 0.025 % Hospit a topical topical topical l cream APPLY cream APPLY cream Clinics A THIN A THIN APPLY A LAYER TO LAYER TO THIN LAYER THE THE TO THE AFFECTED AFFECTED AFFECTED AREA(S) BY AREA(S) BY AREA(S) BY TOPICAL TOPICAL TOPICAL ROUTE 2 ROUTE 2 ROUTE 2 TIMES PER TIMES PER TIMES PER DAY DAY DAY triamterene triamterene No triamteren [place] 75 75 e 75 [facility]i mg-hydrochl mg-hydrochl mg-hydroch ty orothiazide [facility]rothiazide [facility] 50 mg 50 mg de 50 mg l tablet TAKE tablet TAKE tablet Clin[facility] 1 TABLET BY 1 TABLET BY TAKE 1 MOUTH DAILY MOUTH DAILY TABLET BY MOUTH DAILY venlafaxine venlafaxine No venlafaxin [place] ER 150 mg ER 150 mg e ER 150 [facility] capsule,ext capsule,ext mg t y ended ended capsule,ex [facility] release 24 release 24 tended l hr Take 1 hr Take 1 release 24 Clinics capsule capsule hr Take 1 every day every day capsule by oral by oral every day route. route. by oral route. allopurinol allopurinol No allopurino [place] 300 mg 300 mg l 300 mg [facility] tablet TAKE tablet TAKE tablet ty 1 TABLET BY 1 TABLET BY TAKE 1 [facility] MOUTH DAILY MOUTH DAILY TABLET BY l MOUTH Clinics DAILY amlodipine amlodipine No amlodipine [place] 10 10 10 [facility] mg-valsarta mg-valsarta mg-valsart ty n 320 mg n 320 mg an 320 mg [facility] tablet TAKE tablet TAKE tablet l 1 TABLET BY 1 TABLET BY TAKE 1 Clinics MOUTH DAILY MOUTH DAILY TABLET BY MOUTH DAILY atorvastati atorvastati No atorvastat [place] n 20 mg n 20 mg in 20 mg [facility] ni tablet Take tablet Take tablet ty 1 tablet 1 tablet Take 1 [facility] ta every day every day tablet l by oral by oral every day Clin ics route. route. by oral route. bupropion bupropion No bupropion [place] HCl XL 150 HCl XL 150 HCl XL 150 [facility] mg 24 hr mg 24 hr mg 24 hr ty tablet, tablet, tablet, Hospit a extended extended extended l release release release Clinic s Take 1 Take 1 Take 1 tablet tablet tablet every day every day every day by oral by oral by oral route. route. route. cholecalcif cholecalcif No cholecalci [place] [facility] (vitamin (vitamin (vitamin ty D3) 1,250 D3) 1,250 D3) 1,250 [facility] mcg (50,000 mcg (50,000 mcg l unit) unit) (50,000 Clinics capsule capsule unit) TAKE 1 TAKE 1 capsule CAPSULE CAPSULE TAKE 1 EVERY WEEK EVERY WEEK CAPSULE BY ORAL BY ORAL EVERY WEEK ROUTE FOR ROUTE FOR BY ORAL 90 DAYS. 90 DAYS. ROUTE FOR 90 DAYS. folic acid folic acid No folic acid [place] 1 mg tablet 1 mg tablet 1 mg [facility] TAKE 1 TAKE 1 tablet ty TABLET BY TABLET BY TAKE 1 [facility] MOUTH EVERY MOUTH EVERY TABLET BY l DAY DAY MOUTH Clinics EVERY DAY hydrocodone hydrocodone No hydrocodon [place] 10 10 e 10 Communi mg-acetamin mg-acetamin mg-acetami ty ophen 325 ophen 325 nophen 325 [facility] mg tablet mg tablet mg tablet l TAKE 1 TAKE 1 TAKE 1 Clinics TABLET BY TABLET BY TABLET BY MOUTH EVERY MOUTH EVERY MOUTH 4 HOURS 4 HOURS EVERY 4 NEEDED NEEDED HOURS NEEDED hydrocortis hydrocortis No hydrocorti [place] one 2.5 % one 2.5 % sone 2.5 % Communi lotion lotion lotion ty APPLY TO APPLY TO APPLY TO [facility] RASH ON RASH ON RASH ON l FACE AND FACE AND FACE AND Cli nics EARS TWICE EARS TWICE EARS TWICE A DAY A DAY A DAY NEEDED WHEN NEEDED WHEN NEEDED FLARED OR FLARED OR WHEN RED RED FLARED OR RED ketoconazol ketoconazol No ketoconazo [place] e 2 % e 2 % le 2 % [facility]i shampoo shampoo shampoo ty APPLY TO APPLY TO APPLY TO [facility] THE THE THE l AFFECTED AFFECTED AFFECTED Cli nics AREA, AREA, AREA, LATHER, LATHER, LATHER, LEAVE IN LEAVE IN LEAVE IN PLACE FOR [address] FOR MIN, AND MIN, AND 5 MIN, AND THEN RINSE THEN RINSE THEN RINSE OFF WITH OFF WITH OFF WITH WATER DAILY WATER DAILY WATER DAILY levothyroxi levothyroxi No levothyrox [place] ne 175 mcg ne 175 mcg ine 175 [facility] tablet TAKE tablet TAKE mcg tablet ty 1 TABLET BY 1 TABLET BY TAKE 1 [facility] MOUTH DAILY MOUTH DAILY TABLET BY l MOUTH Clinics DAILY meloxicam meloxicam No meloxicam [place] 15 mg 15 mg 15 mg [facility] tablet TAKE tablet TAKE tablet ty 1 TABLET BY 1 TABLET BY TAKE 1 [facility] MOUTH DAILY MOUTH DAILY TABLET BY l MOUTH Clinics DAILY methocarbam methocarbam No methocarba [place] ol 500 mg ol 500 mg mol 500 mg [facility] tablet TAKE tablet TAKE tablet ty 1 TABLET BY 1 TABLET BY TAKE 1 [facility] MOUTH 3 MOUTH 3 TABLET BY l TIMES A DAY TIMES A DAY MOUTH 3 Clinics NEEDED NEEDED TIMES A FOR MUSCLE FOR MUSCLE DAY SPASMS SPASMS NEEDED FOR MUSCLE SPASMS omeprazole omeprazole No omeprazole [place] 40 mg 40 mg 40 mg [facility] capsule,del capsule,del capsule,de ty ayed ayed layed [facility] release release release l TAKE 1 TAKE 1 TAKE 1 Clinics CAPSULE BY CAPSULE BY CAPSULE BY MOUTH TWICE MOUTH TWICE MOUTH A DAY FOR A DAY FOR TWICE A 30 DAYS 30 DAYS DAY FOR 30 DAYS sucralfate sucralfate No sucralfate [place] 1 gram 1 gram 1 gram [facility] tablet TAKE tablet TAKE tablet ty 1 TABLET BY 1 TABLET BY TAKE 1 [facility]ospita MOUTH THREE MOUTH THREE TABLET BY l TIMES A DAY TIMES A DAY MOUTH Clinics FOR 14 DAYS FOR 14 DAYS THREE TIMES A DAY FOR 14 DAYS tadalafil tadalafil No tadalafil [place] 10 mg 10 mg 10 mg [facility] tablet TAKE tablet TAKE tablet ty ONE (1) ONE (1) TAKE ONE Hospi ta TABLET(S) TABLET(S) (1) l BY MOUTH BY MOUTH TABLET(S) Cl inics ONCE EVERY ONCE EVERY BY MOUTH 72 HOURS 72 HOURS ONCE EVERY NEEDED. NEEDED. 72 HOURS NEEDED. triamcinolo triamcinolo No triamcinol [place] ne ne one Communi acetonide acetonide acetonide ty 0.025 % 0.025 % 0.025 % Hospit a topical topical topical l cream APPLY cream APPLY cream Clinics A THIN A THIN APPLY A LAYER TO LAYER TO THIN LAYER THE THE TO THE AFFECTED AFFECTED AFFECTED AREA(S) BY AREA(S) BY AREA(S) BY TOPICAL TOPICAL TOPICAL ROUTE 2 ROUTE 2 ROUTE 2 TIMES PER TIMES PER TIMES PER DAY DAY DAY triamterene triamterene No triamteren [place] 75 75 e 75 Communi mg-hydrochl mg-hydrochl mg-hydroch ty orothiazide orothiazide [facility] 50 mg 50 mg de 50 mg l tablet TAKE tablet TAKE tablet Clinics 1 TABLET BY 1 TABLET BY TAKE 1 MOUTH DAILY MOUTH DAILY TABLET BY MOUTH DAILY venlafaxine venlafaxine No venlafaxin [place] ER 150 mg ER 150 mg e ER 150 [facility] capsule,ext capsule,ext mg t y ended ended capsule,ex [facility]ospita release 24 release 24 tended l hr Take 1 hr Take 1 release 24 Clinics capsule capsule hr Take 1 every day every day capsule by oral by oral every day route. route. by oral route. allopurinol allopurinol No allopurino [place] 300 mg 300 mg l 300 mg [facility] tablet TAKE tablet TAKE tablet ty 1 TABLET BY 1 TABLET BY TAKE 1 [facility]ospita MOUTH DAILY MOUTH DAILY TABLET BY l MOUTH Clinics DAILY amlodipine amlodipine No amlodipine [place] 10 10 10 Communi mg-valsarta mg-valsarta mg-valsart ty n 320 mg n 320 mg an 320 mg [facility] tablet TAKE tablet TAKE tablet l 1 TABLET BY 1 TABLET BY TAKE 1 Clinics MOUTH DAILY MOUTH DAILY TABLET BY MOUTH DAILY atorvastati atorvastati No 1 Q1D atorvastat [place] n 20 mg n 20 mg in 20 mg [facility] ni tablet Take tablet Take tablet ty 1 tablet 1 tablet Take 1 Hospi ta every day every day tablet l by oral by oral every day Clin ics route. route. by oral route. bupropion bupropion No bupropion [place] HCl XL 150 HCl XL 150 HCl XL 150 [facility] mg 24 hr mg 24 hr mg 24 hr ty tablet, tablet, tablet, Hospit a extended extended extended l release release release Clinic s Take 1 Take 1 Take 1 tablet tablet tablet every day every day every day by oral by oral by oral route. route. route. cholecalcif cholecalcif No cholecalci [place] [facility] (vitamin (vitamin (vitamin ty D3) 1,250 D3) 1,250 D3) 1,250 [facility]ospita mcg (50,000 mcg (50,000 mcg l unit) unit) (50,000 Clinics capsule capsule unit) TAKE 1 TAKE 1 capsule CAPSULE CAPSULE TAKE 1 EVERY WEEK EVERY WEEK CAPSULE BY ORAL BY ORAL EVERY WEEK ROUTE FOR ROUTE FOR BY ORAL 90 DAYS. 90 DAYS. ROUTE FOR 90 DAYS. folic acid folic acid No folic acid [place] 1 mg tablet 1 mg tablet 1 mg [facility] TAKE 1 TAKE 1 tablet ty TABLET BY TABLET BY TAKE 1 [facility] MOUTH EVERY MOUTH EVERY TABLET BY l DAY DAY MOUTH Clinics EVERY DAY hydrocortis hydrocortis No hydrocorti [place] one 2.5 % one 2.5 % sone 2.5 % Communi lotion lotion lotion ty APPLY TO APPLY TO APPLY TO [facility] RASH ON RASH ON RASH ON l FACE AND FACE AND FACE AND Cli nics EARS TWICE EARS TWICE EARS TWICE A DAY A DAY A DAY NEEDED WHEN NEEDED WHEN NEEDED FLARED OR FLARED OR WHEN RED RED FLARED OR RED ketoconazol ketoconazol No ketoconazo [place] e 2 % e 2 % le 2 % Communi shampoo shampoo shampoo ty APPLY TO APPLY TO APPLY TO [facility] THE THE THE l AFFECTED AFFECTED AFFECTED Cli nics AREA, AREA, AREA, LATHER, LATHER, LATHER, LEAVE IN LEAVE IN LEAVE IN PLACE FOR [address] FOR MIN, AND MIN, AND 5 MIN, AND THEN RINSE THEN RINSE THEN RINSE OFF WITH OFF WITH OFF WITH WATER DAILY WATER DAILY WATER DAILY levothyroxi levothyroxi No levothyrox [place] ne 175 mcg ne 175 mcg ine 175 [facility] tablet TAKE tablet TAKE mcg tablet ty 1 TABLET BY 1 TABLET BY TAKE 1 Hospita MOUTH DAILY MOUTH DAILY TABLET BY l MOUTH Clinics DAILY meloxicam meloxicam No meloxicam [place] 15 mg 15 mg 15 mg [facility] tablet TAKE tablet TAKE tablet ty 1 TABLET BY 1 TABLET BY TAKE 1 Hospita MOUTH DAILY MOUTH DAILY TABLET BY l MOUTH Clinics DAILY methocarbam methocarbam No methocarba [place] ol 500 mg ol 500 mg mol 500 mg [facility] tablet TAKE tablet TAKE tablet ty 1 TABLET BY 1 TABLET BY TAKE 1 Hospita MOUTH EVERY MOUTH EVERY TABLET BY l 8 (EIGHT) 8 (EIGHT) MOUTH Clin ics HOURS HOURS EVERY 8 NEEDED FOR NEEDED FOR (EIGHT) MUSCLE MUSCLE HOURS SPASMS FOR SPASMS FOR NEEDED FOR UP TO 30 UP TO 30 MUSCLE DAYS. DAYS. SPASMS FOR UP TO 30 DAYS. omeprazole omeprazole No omeprazole [place] 40 mg 40 mg 40 mg [facility] capsule,del capsule,del capsule,de ty ayed ayed layed [facility]osp[facility] release release release l TAKE 1 TAKE 1 TAKE 1 Clinics CAPSULE BY CAPSULE BY CAPSULE BY MOUTH TWICE MOUTH TWICE MOUTH A DAY FOR A DAY FOR TWICE A 30 DAYS 30 DAYS DAY FOR 30 DAYS OneTouch OneTouch No OneTouch Swe [facility] Lancets 30 Lancets 30 Lancets 30 ty gauge gauge gauge [facility]ospita l Clinics OneTouch OneTouch No OneTouch Swe [facility] Verio Meter Verio Meter [facility] USE USE Meter USE ty DIRECTED DIRECTED Hospita DAILY TO DAILY TO DIRECTED l CHECK BLOOD CHECK BLOOD DAILY TO Clinics SUGAR SUGAR CHECK BLOOD SUGAR OneTouch OneTouch No OneTouch Swe [facility] Verio test Verio test [facility] test [facility] strips USE strips USE strips USE ty TO CHECK TO CHECK TO CHECK [facility] BLOOD SUGAR BLOOD SUGAR BLOOD l TWICE A DAY TWICE A DAY SUGAR Clinics TWICE A DAY sucralfate sucralfate No sucralfate [place] 1 gram 1 gram 1 gram [facility] tablet TAKE tablet TAKE tablet ty 1 TABLET BY 1 TABLET BY TAKE 1 Hospita MOUTH THREE MOUTH THREE TABLET BY l TIMES A DAY TIMES A DAY MOUTH Clinics FOR 14 DAYS FOR 14 DAYS THREE TIMES A DAY FOR 14 DAYS tadalafil tadalafil No tadalafil [place] 10 mg 10 mg 10 mg [facility] tablet TAKE tablet TAKE tablet ty ONE (1) ONE (1) TAKE ONE Hospi ta TABLET(S) TABLET(S) (1) l BY MOUTH BY MOUTH TABLET(S) Cl inics ONCE EVERY ONCE EVERY BY MOUTH 72 HOURS 72 HOURS ONCE EVERY NEEDED. NEEDED. 72 HOURS NEEDED. triamcinolo triamcinolo No triamcinol [place] ne ne one [facility]i acetonide acetonide acetonide ty 0.025 % 0.025 % 0.025 % Hospit a topical topical topical l cream APPLY cream APPLY cream Clinics A THIN A THIN APPLY A LAYER TO LAYER TO THIN LAYER THE THE TO THE AFFECTED AFFECTED AFFECTED AREA(S) BY AREA(S) BY AREA(S) BY TOPICAL TOPICAL TOPICAL ROUTE 2 ROUTE 2 ROUTE 2 TIMES PER TIMES PER TIMES PER DAY DAY DAY triamterene triamterene No triamteren [place] 75 75 e 75 Communi mg-hydrochl mg-hydrochl mg-hydroch ty orothiazide orothiazide [facility] 50 mg 50 mg de 50 mg l tablet TAKE tablet TAKE tablet Clinics 1 TABLET BY 1 TABLET BY TAKE 1 MOUTH DAILY MOUTH DAILY TABLET BY MOUTH DAILY venlafaxine venlafaxine No venlafaxin [place] ER 150 mg ER 150 mg e ER 150 [facility] capsule,ext capsule,ext mg t y ended ended capsule,ex [facility]ospita release 24 release 24 tended l hr TAKE 1 hr TAKE 1 release 24 Clinics CAPSULE BY CAPSULE BY hr TAKE 1 MOUTH DAILY MOUTH DAILY CAPSULE BY MOUTH DAILY allopurinol allopurinol No allopurino [place] 300 mg 300 mg l 300 mg [facility] tablet TAKE tablet TAKE tablet ty 1 TABLET BY 1 TABLET BY TAKE 1 Hospita MOUTH DAILY MOUTH DAILY TABLET BY l MOUTH Clinics DAILY amlodipine amlodipine No amlodipine [place] 10 10 10 Communi mg-valsarta mg-valsarta mg-valsart ty n 320 mg n 320 mg an 320 mg [facility] tablet TAKE tablet TAKE tablet l 1 TABLET BY 1 TABLET BY TAKE 1 Clinics MOUTH DAILY MOUTH DAILY TABLET BY MOUTH DAILY atorvastati atorvastati No atorvastat [place] n 20 mg n 20 mg in 20 mg [facility] ni tablet Take tablet Take tablet ty 1 tablet 1 tablet Take 1 Hospi ta every day every day tablet l by oral by oral every day Clin ics route. route. by oral route. bupropion bupropion No 1 Q1D bupropion [place] HCl XL 300 HCl XL 300 HCl XL 300 [facility] mg 24 hr mg 24 hr mg 24 hr ty tablet, tablet, tablet, Hospit a extended extended extended l release release release Clinic s Take 1 Take 1 Take 1 tablet tablet tablet every day every day every day by oral by oral by oral route in route in route in the the the morning. morning. morning. cholecalcif cholecalcif No cholecalci [place] [facility] (vitamin (vitamin (vitamin ty D3) 1,250 D3) 1,250 D3) 1,250 [facility]ospita mcg (50,000 mcg (50,000 mcg l unit) unit) (50,000 Clinics capsule capsule unit) TAKE 1 TAKE 1 capsule CAPSULE CAPSULE TAKE 1 EVERY WEEK EVERY WEEK CAPSULE BY ORAL BY ORAL EVERY WEEK ROUTE FOR ROUTE FOR BY ORAL 90 DAYS. 90 DAYS. ROUTE FOR 90 DAYS. folic acid folic acid No folic acid [place] 1 mg tablet 1 mg tablet 1 mg [facility] TAKE 1 TAKE 1 tablet ty TABLET BY TABLET BY TAKE 1 [facility] MOUTH EVERY MOUTH EVERY TABLET BY l DAY DAY MOUTH Clinics EVERY DAY hydrocortis hydrocortis No hydrocorti [place] one 2.5 % one 2.5 % sone 2.5 % Communi lotion lotion lotion ty APPLY TO APPLY TO APPLY TO [facility] RASH ON RASH ON RASH ON l FACE AND FACE AND FACE AND Cli nics EARS TWICE EARS TWICE EARS TWICE A DAY A DAY A DAY NEEDED WHEN NEEDED WHEN NEEDED FLARED OR FLARED OR WHEN RED RED FLARED OR RED ketoconazol ketoconazol No ketoconazo [place] e 2 % e 2 % le 2 % Communi shampoo shampoo shampoo ty APPLY TO APPLY TO APPLY TO [facility] THE THE THE l AFFECTED AFFECTED AFFECTED Cli nics AREA, AREA, AREA, LATHER, LATHER, LATHER, LEAVE IN LEAVE IN LEAVE IN PLACE FOR [address] FOR MIN, AND MIN, AND 5 MIN, AND THEN RINSE THEN RINSE THEN RINSE OFF WITH OFF WITH OFF WITH WATER DAILY WATER DAILY WATER DAILY levothyroxi levothyroxi No levothyrox [place] ne 175 mcg ne 175 mcg ine 175 [facility] tablet TAKE tablet TAKE mcg tablet ty 1 TABLET BY 1 TABLET BY TAKE 1 Hospita MOUTH DAILY MOUTH DAILY TABLET BY l MOUTH Clinics DAILY meloxicam meloxicam No meloxicam [place] 15 mg 15 mg 15 mg [facility] tablet TAKE tablet TAKE tablet ty 1 TABLET BY 1 TABLET BY TAKE 1 [facility]ospita MOUTH DAILY MOUTH DAILY TABLET BY l MOUTH Clinics DAILY methocarbam methocarbam No methocarba [place] ol 500 mg ol 500 mg mol 500 mg [facility] tablet TAKE tablet TAKE tablet ty 1 TABLET BY 1 TABLET BY TAKE 1 Hospita MOUTH EVERY MOUTH EVERY TABLET BY l 8 (EIGHT) 8 (EIGHT) MOUTH Clin ics HOURS HOURS EVERY 8 NEEDED FOR NEEDED FOR (EIGHT) MUSCLE MUSCLE HOURS SPASMS FOR SPASMS FOR NEEDED FOR UP TO 30 UP TO 30 MUSCLE DAYS. DAYS. SPASMS FOR UP TO 30 DAYS. omeprazole omeprazole No omeprazole [place] 40 mg 40 mg 40 mg [facility] capsule,del capsule,del capsule,de ty ayed ayed layed [facility]osp[facility] release release release l TAKE 1 TAKE 1 TAKE 1 Clinics CAPSULE BY CAPSULE BY CAPSULE BY MOUTH TWICE MOUTH TWICE MOUTH A DAY FOR A DAY FOR TWICE A 30 DAYS 30 DAYS DAY FOR 30 DAYS OneTouch OneTouch No OneTouch Swe [facility] Lancets 30 Lancets 30 Lancets 30 ty gauge gauge gauge [facility]ospita l Clinics OneTouch OneTouch No OneTouch Swe [facility] Verio Flex Verio Flex Verio Flex [facility] Meter USE Meter USE Meter USE ty DIRECTED DIRECTED H ospita DAILY TO DAILY TO DIRECTED l CHECK BLOOD CHECK BLOOD DAILY TO Clinics SUGAR SUGAR CHECK BLOOD SUGAR OneTouch OneTouch No OneTouch Swe [facility] Verio test Verio test [facility]io test [facility] strips USE strips USE strips USE ty TO CHECK TO CHECK TO CHECK [facility] BLOOD SUGAR BLOOD SUGAR BLOOD l TWICE A DAY TWICE A DAY SUGAR Clinics TWICE A DAY tadalafil tadalafil No tadalafil [place] 10 mg 10 mg 10 mg [facility] tablet TAKE tablet TAKE tablet ty ONE (1) ONE (1) TAKE ONE Hos[facility] ta TABLET(S) TABLET(S) (1) l BY MOUTH BY MOUTH TABLET(S) Cl inics ONCE EVERY ONCE EVERY BY MOUTH 72 HOURS 72 HOURS ONCE EVERY NEEDED. NEEDED. 72 HOURS NEEDED. triamcinolo triamcinolo No triamcinol [place] ne ne one [facility] acetonide acetonide acetonide ty 0.025 % 0.025 % 0.025 % Hospit a topical topical topical l cream APPLY cream APPLY cream Clinics A THIN A THIN APPLY A LAYER TO LAYER TO THIN LAYER THE THE TO THE AFFECTED AFFECTED AFFECTED AREA(S) BY AREA(S) BY AREA(S) BY TOPICAL TOPICAL TOPICAL ROUTE 2 ROUTE 2 ROUTE 2 TIMES PER TIMES PER TIMES PER DAY DAY DAY triamterene triamterene No triamteren [place] 75 75 e 75 Communi mg-hydrochl mg-hydrochl mg-hydroch ty orothiazide orothiazide [facility] 50 mg 50 mg de 50 mg l tablet TAKE tablet TAKE tablet Clinics 1 TABLET BY 1 TABLET BY TAKE 1 MOUTH DAILY MOUTH DAILY TABLET BY MOUTH DAILY venlafaxine venlafaxine No venlafaxin [place] ER 150 mg ER 150 mg e ER 150 [facility] capsule,ext capsule,ext mg t y ended ended capsule,ex [facility]osp[facility] release 24 release 24 tended l hr TAKE 1 hr TAKE 1 release 24 Clinics CAPSULE BY CAPSULE BY hr TAKE 1 MOUTH DAILY MOUTH DAILY CAPSULE BY MOUTH DAILY allopurinol allopurinol No allopurino [place] 300 mg 300 mg l 300 mg [facility] tablet TAKE tablet TAKE tablet ty 1 TABLET BY 1 TABLET BY TAKE 1 [facility]ospita MOUTH DAILY MOUTH DAILY TABLET BY l MOUTH Clinics DAILY amlodipine amlodipine No amlodipine [place] 10 10 10 Communi mg-valsarta mg-valsarta mg-valsart ty n 320 mg n 320 mg an 320 mg [facility] tablet TAKE tablet TAKE tablet l 1 TABLET BY 1 TABLET BY TAKE 1 Clinics MOUTH DAILY MOUTH DAILY TABLET BY MOUTH DAILY atorvastati atorvastati No atorvastat [place] n 20 mg n 20 mg in 20 mg [facility] ni tablet Take tablet Take tablet ty 1 tablet 1 tablet Take 1 Hospi ta every day every day tablet l by oral by oral every day Clin ics route. route. by oral route. bupropion bupropion No bupropion [place] HCl XL 150 HCl XL 150 HCl XL 150 [facility] mg 24 hr mg 24 hr mg 24 hr ty tablet, tablet, tablet, Hospit a extended extended extended l release release release Clinic s TAKE 3 TAKE 3 TAKE 3 TABLET BY TABLET BY TABLET BY MOUTH DAILY MOUTH DAILY MOUTH DAILY cholecalcif cholecalcif No cholecalci [place] [facility] (vitamin (vitamin (vitamin ty D3) 1,250 D3) 1,250 D3) 1,250 [facility]osp[facility] mcg (50,000 mcg (50,000 mcg l unit) unit) (50,000 Clinics capsule capsule unit) TAKE 1 TAKE 1 capsule CAPSULE CAPSULE TAKE 1 EVERY WEEK EVERY WEEK CAPSULE BY ORAL BY ORAL EVERY WEEK ROUTE FOR ROUTE FOR BY ORAL 90 DAYS. 90 DAYS. ROUTE FOR 90 DAYS. folic acid folic acid No folic acid [place] 1 mg tablet 1 mg tablet 1 mg [facility] TAKE 1 TAKE 1 tablet ty TABLET BY TABLET BY TAKE 1 [facility] MOUTH EVERY MOUTH EVERY TABLET BY l DAY DAY MOUTH Clinics EVERY DAY hydrocortis hydrocortis No hydrocorti [place] one 2.5 % one 2.5 % sone 2.5 % Communi lotion lotion lotion ty APPLY TO APPLY TO APPLY TO [facility] RASH ON RASH ON RASH ON l FACE AND FACE AND FACE AND Cli nics EARS TWICE EARS TWICE EARS TWICE A DAY A DAY A DAY NEEDED WHEN NEEDED WHEN NEEDED FLARED OR FLARED OR WHEN RED RED FLARED OR RED ketoconazol ketoconazol No ketoconazo [place] e 2 % e 2 % le 2 % Communi shampoo shampoo shampoo ty APPLY TO APPLY TO APPLY TO [facility] THE THE THE l AFFECTED AFFECTED AFFECTED Cli nics AREA, AREA, AREA, LATHER, LATHER, LATHER, LEAVE IN LEAVE IN LEAVE IN PLACE FOR [address] FOR MIN, AND MIN, AND 5 MIN, AND THEN RINSE THEN RINSE THEN RINSE OFF WITH OFF WITH OFF WITH WATER DAILY WATER DAILY WATER DAILY levothyroxi levothyroxi No levothyrox [place] ne 175 mcg ne 175 mcg ine 175 [facility] tablet TAKE tablet TAKE mcg tablet ty 1 TABLET BY 1 TABLET BY TAKE 1 [facility]ospita MOUTH DAILY MOUTH DAILY TABLET BY l MOUTH Clinics DAILY meloxicam meloxicam No meloxicam [place] 15 mg 15 mg 15 mg [facility] tablet TAKE tablet TAKE tablet ty 1 TABLET BY 1 TABLET BY TAKE 1 [facility]ospita MOUTH DAILY MOUTH DAILY TABLET BY l MOUTH Clinics DAILY methocarbam methocarbam No methocarba [place] ol 500 mg ol 500 mg mol 500 mg [facility] tablet TAKE tablet TAKE tablet ty 1 TABLET BY 1 TABLET BY TAKE 1 [facility]ospita MOUTH EVERY MOUTH EVERY TABLET BY l 8 (EIGHT) 8 (EIGHT) MOUTH Clin ics HOURS HOURS EVERY 8 NEEDED FOR NEEDED FOR (EIGHT) MUSCLE MUSCLE HOURS SPASMS FOR SPASMS FOR NEEDED FOR UP TO 30 UP TO 30 MUSCLE DAYS. DAYS. SPASMS FOR UP TO 30 DAYS. omeprazole omeprazole No omeprazole [place] 40 mg 40 mg 40 mg [facility] capsule,del capsule,del capsule,de ty ayed ayed layed [facility]osp[facility] release release release l TAKE 1 TAKE 1 TAKE 1 Clinics CAPSULE BY CAPSULE BY CAPSULE BY MOUTH TWICE MOUTH TWICE MOUTH A DAY FOR A DAY FOR TWICE A 30 DAYS 30 DAYS DAY FOR 30 DAYS OneTouch OneTouch No OneTouch Swe [facility] Lancets 30 Lancets 30 Lancets 30 ty gauge gauge gauge [facility] l Clinics OneTouch OneTouch No OneTouch Swe [facility] Verio Flex Verio Flex Verio Flex [facility] Meter USE Meter USE Meter USE ty DIRECTED DIRECTED H ospita DAILY TO DAILY TO DIRECTED l CHECK BLOOD CHECK BLOOD DAILY TO Clinics SUGAR SUGAR CHECK BLOOD SUGAR OneTouch OneTouch No OneTouch Swe [facility] Verio test Verio test Verio test [facility] strips USE strips USE strips USE ty TO CHECK TO CHECK TO CHECK [facility] BLOOD SUGAR BLOOD SUGAR BLOOD l TWICE A DAY TWICE A DAY SUGAR Clinics TWICE A DAY tadalafil tadalafil No tadalafil [place] 10 mg 10 mg 10 mg [facility] tablet TAKE tablet TAKE tablet ty ONE (1) ONE (1) TAKE ONE [facility] ta TABLET(S) TABLET(S) (1) l BY MOUTH BY MOUTH TABLET(S) Cl inics ONCE EVERY ONCE EVERY BY MOUTH 72 HOURS 72 HOURS ONCE EVERY NEEDED. NEEDED. 72 HOURS NEEDED. triamcinolo triamcinolo No triamcinol [place] ne ne one [facility]i acetonide acetonide acetonide ty 0.025 % 0.025 % 0.025 % Hospit a topical topical topical l cream APPLY cream APPLY cream Clinics A THIN A THIN APPLY A LAYER TO LAYER TO THIN LAYER THE THE TO THE AFFECTED AFFECTED AFFECTED AREA(S) BY AREA(S) BY AREA(S) BY TOPICAL TOPICAL TOPICAL ROUTE 2 ROUTE 2 ROUTE 2 TIMES PER TIMES PER TIMES PER DAY DAY DAY triamterene triamterene No triamteren [place] 75 75 e 75 Communi mg-hydrochl mg-hydrochl mg-hydroch ty orothiazide [facility]thiazide [facility] 50 mg 50 mg de 50 mg l tablet TAKE tablet TAKE tablet Clinics 1 TABLET BY 1 TABLET BY TAKE 1 MOUTH DAILY MOUTH DAILY TABLET BY MOUTH DAILY venlafaxine venlafaxine No venlafaxin [place] ER 150 mg ER 150 mg e ER 150 [facility] capsule,ext capsule,ext mg t y ended ended capsule,ex [facility] release 24 release 24 tended l hr TAKE 1 hr TAKE 1 release 24 Clinics CAPSULE BY CAPSULE BY hr TAKE 1 MOUTH DAILY MOUTH DAILY CAPSULE BY MOUTH DAILY allopurinol allopurinol No allopurino [place] 300 mg 300 mg l 300 mg [facility] tablet TAKE tablet TAKE tablet ty 1 TABLET BY 1 TABLET BY TAKE 1 [facility]ita MOUTH DAILY MOUTH DAILY TABLET BY l MOUTH Clinics DAILY amlodipine amlodipine No amlodipine [place] 10 10 10 Communi mg-valsarta mg-valsarta mg-valsart ty n 320 mg n 320 mg an 320 mg [facility] tablet TAKE tablet TAKE tablet l 1 TABLET BY 1 TABLET BY TAKE 1 Clinics MOUTH DAILY MOUTH DAILY TABLET BY MOUTH DAILY atorvastati atorvastati No atorvastat [place] n 20 mg n 20 mg in 20 mg [facility] ni tablet Take tablet Take tablet ty 1 tablet 1 tablet Take 1 [facility] ta every day every day tablet l by oral by oral every day Clin ics route. route. by oral route. bupropion bupropion No bupropion [place] HCl XL 150 HCl XL 150 HCl XL 150 [facility] mg 24 hr mg 24 hr mg 24 hr ty tablet, tablet, tablet, Hospit a extended extended extended l release release release Clinic s TAKE 3 TAKE 3 TAKE 3 TABLET BY TABLET BY TABLET BY MOUTH DAILY MOUTH DAILY MOUTH DAILY cholecalcif cholecalcif No cholecalci [place] [facility] (vitamin (vitamin (vitamin ty D3) 1,250 D3) 1,250 D3) 1,250 [facility] mcg (50,000 mcg (50,000 mcg l unit) unit) (50,000 Clinics capsule capsule unit) TAKE 1 TAKE 1 capsule CAPSULE CAPSULE TAKE 1 EVERY WEEK EVERY WEEK CAPSULE BY ORAL BY ORAL EVERY WEEK ROUTE FOR ROUTE FOR BY ORAL 90 DAYS. 90 DAYS. ROUTE FOR 90 DAYS. folic acid folic acid No folic acid [place] 1 mg tablet 1 mg tablet 1 mg [facility] TAKE 1 TAKE 1 tablet ty TABLET BY TABLET BY TAKE 1 [facility] MOUTH EVERY MOUTH EVERY TABLET BY l DAY DAY MOUTH Clinics EVERY DAY hydrocortis hydrocortis No hydrocorti [place] one 2.5 % one 2.5 % sone 2.5 % Communi lotion lotion lotion ty APPLY TO APPLY TO APPLY TO [facility] RASH ON RASH ON RASH ON l FACE AND FACE AND FACE AND Cli nics EARS TWICE EARS TWICE EARS TWICE A DAY A DAY A DAY NEEDED WHEN NEEDED WHEN NEEDED FLARED OR FLARED OR WHEN RED RED FLARED OR RED ketoconazol ketoconazol No ketoconazo [place] e 2 % e 2 % le 2 % Communi shampoo shampoo shampoo ty APPLY TO APPLY TO APPLY TO [facility] THE THE THE l AFFECTED AFFECTED AFFECTED Cli nics AREA, AREA, AREA, LATHER, LATHER, LATHER, LEAVE IN LEAVE IN LEAVE IN PLACE FOR [address] FOR MIN, AND MIN, AND 5 MIN, AND THEN RINSE THEN RINSE THEN RINSE OFF WITH OFF WITH OFF WITH WATER DAILY WATER DAILY WATER DAILY levothyroxi levothyroxi No levothyrox [place] ne 175 mcg ne 175 mcg ine 175 [facility]i tablet TAKE tablet TAKE mcg tablet ty 1 TABLET BY 1 TABLET BY TAKE 1 [facility] MOUTH DAILY MOUTH DAILY TABLET BY l MOUTH Clinics DAILY meloxicam meloxicam No meloxicam [place] 15 mg 15 mg 15 mg [facility] tablet TAKE tablet TAKE tablet ty 1 TABLET BY 1 TABLET BY TAKE 1 [facility] MOUTH DAILY MOUTH DAILY TABLET BY l MOUTH Clinics DAILY methocarbam methocarbam No methocarba [place] ol 500 mg ol 500 mg mol 500 mg [facility] tablet TAKE tablet TAKE tablet ty 1 TABLET BY 1 TABLET BY TAKE 1 [facility] MOUTH EVERY MOUTH EVERY TABLET BY l 8 (EIGHT) 8 (EIGHT) MOUTH Clin ics HOURS HOURS EVERY 8 NEEDED FOR NEEDED FOR (EIGHT) MUSCLE MUSCLE HOURS SPASMS FOR SPASMS FOR NEEDED FOR UP TO 30 UP TO 30 MUSCLE DAYS. DAYS. SPASMS FOR UP TO 30 DAYS. omeprazole omeprazole No omeprazole [place] 40 mg 40 mg 40 mg [facility] capsule,del capsule,del capsule,de ty ayed ayed layed [facility] release release release l TAKE 1 TAKE 1 TAKE 1 Clinics CAPSULE BY CAPSULE BY CAPSULE BY MOUTH TWICE MOUTH TWICE MOUTH A DAY FOR A DAY FOR TWICE A 30 DAYS 30 DAYS DAY FOR 30 DAYS OneTouch OneTouch No OneTouch Swe [facility] Lancets 30 Lancets 30 Lancets 30 ty gauge gauge gauge [facility] l Clinics OneTouch OneTouch No OneTouch Swe hayden Verio Flex Verio Flex Verio Flex [facility] Meter USE Meter USE Meter USE ty DIRECTED DIRECTED H [facility]spita DAILY TO DAILY TO DIRECTED l CHECK BLOOD CHECK BLOOD DAILY TO Clinics SUGAR SUGAR CHECK BLOOD SUGAR OneTouch OneTouch No OneTouch Swe hayden Verio test Verio test Verio test Communi strips USE strips USE strips USE ty TO CHECK TO CHECK TO CHECK [facility] BLOOD SUGAR BLOOD SUGAR BLOOD l TWICE A DAY TWICE A DAY SUGAR Clinics TWICE A DAY tadalafil tadalafil No tadalafil [place] 10 mg 10 mg 10 mg [facility] tablet TAKE tablet TAKE tablet ty ONE (1) ONE (1) TAKE ONE [facility] ta TABLET(S) TABLET(S) (1) l BY MOUTH BY MOUTH TABLET(S) Cl inics ONCE EVERY ONCE EVERY BY MOUTH 72 HOURS 72 HOURS ONCE EVERY NEEDED. NEEDED. 72 HOURS NEEDED. triamcinolo triamcinolo No triamcinol [place] ne ne one Communi acetonide acetonide acetonide ty 0.025 % 0.025 % 0.025 % Hospit a topical topical topical l cream APPLY cream APPLY cream Clinics A THIN A THIN APPLY A LAYER TO LAYER TO THIN LAYER THE THE TO THE AFFECTED AFFECTED AFFECTED AREA(S) BY AREA(S) BY AREA(S) BY TOPICAL TOPICAL TOPICAL ROUTE 2 ROUTE 2 ROUTE 2 TIMES PER TIMES PER TIMES PER DAY DAY DAY triamcinolo triamcinolo No triamcinol [place] ne ne one Communi acetonide acetonide acetonide ty 0.1 % 0.1 % 0.1 % [facility]ospita topical topical topical l cream APPLY cream APPLY cream Clinics A THIN A THIN APPLY A LAYER TO LAYER TO THIN LAYER THE THE TO THE AFFECTED AFFECTED AFFECTED AREA(S) BY AREA(S) BY AREA(S) BY TOPICAL TOPICAL TOPICAL ROUTE 2 ROUTE 2 ROUTE 2 TIMES PER TIMES PER TIMES PER DAY, never DAY, never DAY, never to face to face to face triamterene triamterene No triamteren [place] 75 75 e 75 Communi mg-hydrochl mg-hydrochl mg-hydroch ty orothiazide [facility]thiazide [facility] 50 mg 50 mg de 50 mg l tablet TAKE tablet TAKE tablet Clinics 1 TABLET BY 1 TABLET BY TAKE 1 MOUTH DAILY MOUTH DAILY TABLET BY MOUTH DAILY venlafaxine venlafaxine No venlafaxin [place] ER 150 mg ER 150 mg e ER 150 [facility] capsule,ext capsule,ext mg t y ended ended capsule,ex Hospita release 24 release 24 tended l hr TAKE 1 hr TAKE 1 release 24 Clinics CAPSULE BY CAPSULE BY hr TAKE 1 MOUTH DAILY MOUTH DAILY CAPSULE BY MOUTH DAILY allopurinol allopurinol No allopurino [place] 300 mg 300 mg l 300 mg [facility]i tablet TAKE tablet TAKE tablet ty 1 TABLET BY 1 TABLET BY TAKE 1 Hospita MOUTH DAILY MOUTH DAILY TABLET BY l MOUTH Clinics DAILY amlodipine amlodipine No amlodipine [place] 10 10 10 Communi mg-valsarta mg-valsarta mg-valsart ty n 320 mg n 320 mg an 320 mg [facility] tablet TAKE tablet TAKE tablet l 1 TABLET BY 1 TABLET BY TAKE 1 Clinics MOUTH DAILY MOUTH DAILY TABLET BY MOUTH DAILY atorvastati atorvastati No atorvastat [place] n 20 mg n 20 mg in 20 mg Commu ni tablet Take tablet Take tablet ty 1 tablet 1 tablet Take 1 Hospi ta every day every day tablet l by oral by oral every day Clin ics route. route. by oral route. bupropion bupropion No bupropion [place] HCl XL 150 HCl XL 150 HCl XL 150 Communi mg 24 hr mg 24 hr mg 24 hr ty tablet, tablet, tablet, Hospit a extended extended extended l release release release Clinic s TAKE 3 TAKE 3 TAKE 3 TABLET BY TABLET BY TABLET BY MOUTH DAILY MOUTH DAILY MOUTH DAILY cholecalcif cholecalcif No cholecalci [place] [facility] l[facility] fern[facility] ferol [facility] (vitamin (vitamin (vitamin ty D3) 1,250 D3) 1,250 D3) 1,250 Hospita mcg (50,000 mcg (50,000 mcg l unit) unit) (50,000 Clinics capsule capsule unit) TAKE 1 TAKE 1 capsule CAPSULE CAPSULE TAKE 1 EVERY WEEK EVERY WEEK CAPSULE BY ORAL BY ORAL EVERY WEEK ROUTE FOR ROUTE FOR BY ORAL 90 DAYS. 90 DAYS. ROUTE FOR 90 DAYS. folic acid folic acid No folic acid [place] 1 mg tablet 1 mg tablet 1 mg C [facility] TAKE 1 TAKE 1 tablet ty TABLET BY TABLET BY TAKE 1 [facility] MOUTH EVERY MOUTH EVERY TABLET BY l DAY DAY MOUTH Clinics EVERY DAY hydrocortis hydrocortis No hydrocorti [place] one 2.5 % one 2.5 % sone 2.5 % Communi lotion lotion lotion ty APPLY TO APPLY TO APPLY TO [facility] RASH ON RASH ON RASH ON l FACE AND FACE AND FACE AND Cli nics EARS TWICE EARS TWICE EARS TWICE A DAY A DAY A DAY NEEDED WHEN NEEDED WHEN NEEDED FLARED OR FLARED OR WHEN RED RED FLARED OR RED Kenalog 40 Kenalog 40 No 2mL Kenalog 40 [place] mg/mL mg/mL mg/mL [facility] suspension suspension suspension ty for for for Hospita injection injection injection l Take 2 mL Take 2 mL Take 2 mL Clinics by by by injection injection injection route. route. route. ketoconazol ketoconazol No ketoconazo [place] e 2 % e 2 % le 2 % Communi shampoo shampoo shampoo ty APPLY TO APPLY TO APPLY TO [facility] THE THE THE l AFFECTED AFFECTED AFFECTED Cli nics AREA, AREA, AREA, LATHER, LATHER, LATHER, LEAVE IN LEAVE IN LEAVE IN PLACE FOR [address] FOR MIN, AND MIN, AND 5 MIN, AND THEN RINSE THEN RINSE THEN RINSE OFF WITH OFF WITH OFF WITH WATER DAILY WATER DAILY WATER DAILY levothyroxi levothyroxi No levothyrox [place] ne 175 mcg ne 175 mcg ine 175 Communi tablet TAKE tablet TAKE mcg tablet ty 1 TABLET BY 1 TABLET BY TAKE 1 Hospita MOUTH DAILY MOUTH DAILY TABLET BY l MOUTH Clinics DAILY meloxicam meloxicam No meloxicam [place] 15 mg 15 mg 15 mg [facility]i tablet TAKE tablet TAKE tablet ty 1 TABLET BY 1 TABLET BY TAKE 1 Hospita MOUTH DAILY MOUTH DAILY TABLET BY l MOUTH Clinics DAILY methocarbam methocarbam No methocarba [place] ol 500 mg ol 500 mg mol 500 mg Communi tablet TAKE tablet TAKE tablet ty 1 TABLET BY 1 TABLET BY TAKE 1 Hospita MOUTH EVERY MOUTH EVERY TABLET BY l 8 (EIGHT) 8 (EIGHT) MOUTH Clin ics HOURS HOURS EVERY 8 NEEDED FOR NEEDED FOR (EIGHT) MUSCLE MUSCLE HOURS SPASMS FOR SPASMS FOR NEEDED FOR UP TO 30 UP TO 30 MUSCLE DAYS. DAYS. SPASMS FOR UP TO 30 DAYS. omeprazole omeprazole No omeprazole [place] 40 mg 40 mg 40 mg [facility] capsule,del capsule,del capsule,de ty ayed ayed layed Hospita release release release l TAKE 1 TAKE 1 TAKE 1 Clinics CAPSULE BY CAPSULE BY CAPSULE BY MOUTH TWICE MOUTH TWICE MOUTH A DAY FOR A DAY FOR TWICE A 30 DAYS 30 DAYS DAY FOR 30 DAYS OneTouch OneTouch No OneTouch [facility] Lancets 30 Lancets 30 Lancets 30 ty gauge gauge gauge Hospita l Clinics OneTouch OneTouch No OneTouch [facility] Verio Flex Verio Flex Verio Flex Communi Meter USE Meter USE Meter USE ty DIRECTED DIRECTED H ospita DAILY TO DAILY TO DIRECTED l CHECK BLOOD CHECK BLOOD DAILY TO Clinics SUGAR SUGAR CHECK BLOOD SUGAR OneTouch OneTouch No OneTouch [facility] [place] Verio test Verio test Verio test Communi strips USE strips USE strips USE ty TO CHECK TO CHECK TO CHECK [facility] BLOOD SUGAR BLOOD SUGAR BLOOD l TWICE A DAY TWICE A DAY SUGAR Clinics TWICE A DAY tadalafil tadalafil No tadalafil [place] 10 mg 10 mg 10 mg Communi tablet TAKE tablet TAKE tablet ty ONE (1) ONE (1) TAKE ONE Hospi ta TABLET(S) TABLET(S) (1) l BY MOUTH BY MOUTH TABLET(S) Cl inics ONCE EVERY ONCE EVERY BY MOUTH 72 HOURS 72 HOURS ONCE EVERY NEEDED. NEEDED. 72 HOURS NEEDED. triamcinolo triamcinolo No triamcinol [place] ne ne one Communi acetonide acetonide acetonide ty 0.025 % 0.025 % 0.025 % Hospit a topical topical topical l cream APPLY cream APPLY cream Clinics A THIN A THIN APPLY A LAYER TO LAYER TO THIN LAYER THE THE TO THE AFFECTED AFFECTED AFFECTED AREA(S) BY AREA(S) BY AREA(S) BY TOPICAL TOPICAL TOPICAL ROUTE 2 ROUTE 2 ROUTE 2 TIMES PER TIMES PER TIMES PER DAY DAY DAY triamcinolo triamcinolo No triamcinol [place] ne ne one Communi acetonide acetonide acetonide ty 0.1 % 0.1 % 0.1 % Hospita topical topical topical l cream APPLY cream APPLY cream Clinics A THIN A THIN APPLY A LAYER TO LAYER TO THIN LAYER THE THE TO THE AFFECTED AFFECTED AFFECTED AREA(S) BY AREA(S) BY AREA(S) BY TOPICAL TOPICAL TOPICAL ROUTE 2 ROUTE 2 ROUTE 2 TIMES PER TIMES PER TIMES PER DAY, never DAY, never DAY, never to face to face to face triamterene triamterene No triamteren [place] 75 75 e 75 Communi mg-hydrochl mg-hydrochl mg-hydroch ty orothiazide orothiazide lorothiazi [facility]osp[facility] 50 mg 50 mg de 50 mg l tablet TAKE tablet TAKE tablet Clinics 1 TABLET BY 1 TABLET BY TAKE 1 MOUTH DAILY MOUTH DAILY TABLET BY MOUTH DAILY venlafaxine venlafaxine No venlafaxin [place] ER 150 mg ER 150 mg e ER 150 C [facility] capsule,ext capsule,ext mg t y ended ended capsule,ex Hospita release 24 release 24 tended l hr TAKE 1 hr TAKE 1 release 24 Clinics CAPSULE BY CAPSULE BY hr TAKE 1 MOUTH DAILY MOUTH DAILY CAPSULE BY MOUTH DAILY allopurinol allopurinol No allopurino [place] 300 mg 300 mg l 300 mg Communi tablet TAKE tablet TAKE tablet ty 1 TABLET BY 1 TABLET BY TAKE 1 Hospita MOUTH DAILY MOUTH DAILY TABLET BY l MOUTH Clinics DAILY amlodipine amlodipine No amlodipine [place] 10 10 10 Communi mg-valsarta mg-valsarta mg-valsart ty n 320 mg n 320 mg an 320 mg [facility] tablet TAKE tablet TAKE tablet l 1 TABLET BY 1 TABLET BY TAKE 1 Clinics MOUTH DAILY MOUTH DAILY TABLET BY MOUTH DAILY atorvastati atorvastati No atorvastat [place] n 20 mg n 20 mg in 20 mg Commu ni tablet Take tablet Take tablet ty 1 tablet 1 tablet Take 1 Hospi ta every day every day tablet l by oral by oral every day Clin ics route. route. by oral route. bupropion bupropion No bupropion [place] HCl XL 150 HCl XL 150 HCl XL 150 Communi mg 24 hr mg 24 hr mg 24 hr ty tablet, tablet, tablet, Hospit a extended extended extended l release release release Clinic s TAKE 3 TAKE 3 TAKE 3 TABLET BY TABLET BY TABLET BY MOUTH DAILY MOUTH DAILY MOUTH DAILY cholecalcif cholecalcif No cholecalci [place] [facility] hoff Andreyi (vitamin (vitamin (vitamin ty D3) 1,250 D3) 1,250 D3) 1,250 Hospita mcg (50,000 mcg (50,000 mcg l unit) unit) (50,000 Clinics capsule capsule unit) TAKE 1 TAKE 1 capsule CAPSULE CAPSULE TAKE 1 EVERY WEEK EVERY WEEK CAPSULE BY ORAL BY ORAL EVERY WEEK ROUTE FOR ROUTE FOR BY ORAL 90 DAYS. 90 DAYS. ROUTE FOR 90 DAYS. folic acid folic acid No folic acid [place] 1 mg tablet 1 mg tablet 1 mg C [facility] TAKE 1 TAKE 1 tablet ty TABLET BY TABLET BY TAKE 1 [facility] MOUTH EVERY MOUTH EVERY TABLET BY l DAY DAY MOUTH Clinics EVERY DAY hydrocortis hydrocortis No hydrocorti [place] one 2.5 % one 2.5 % sone 2.5 % Communi lotion lotion lotion ty APPLY TO APPLY TO APPLY TO [facility] RASH ON RASH ON RASH ON l FACE AND FACE AND FACE AND Cli nics EARS TWICE EARS TWICE EARS TWICE A DAY A DAY A DAY NEEDED WHEN NEEDED WHEN NEEDED FLARED OR FLARED OR WHEN RED RED FLARED OR RED Kenalog 40 Kenalog 40 No 2mL Kenalog 40 [place] mg/mL mg/mL mg/mL [facility] suspension suspension suspension ty for for for Hospita injection injection injection l Take 2 mL Take 2 mL Take 2 mL Clinics by by by injection injection injection route. route. route. ketoconazol ketoconazol No ketoconazo [place] e 2 % e 2 % le 2 % Communi shampoo shampoo shampoo ty APPLY TO APPLY TO APPLY TO [facility] THE THE THE l AFFECTED AFFECTED AFFECTED Cli nics AREA, AREA, AREA, LATHER, LATHER, LATHER, LEAVE IN LEAVE IN LEAVE IN PLACE FOR [address] FOR MIN, AND MIN, AND 5 MIN, AND THEN RINSE THEN RINSE THEN RINSE OFF WITH OFF WITH OFF WITH WATER DAILY WATER DAILY WATER DAILY levothyroxi levothyroxi No levothyrox [place] ne 175 mcg ne 175 mcg ine 175 Communi tablet TAKE tablet TAKE mcg tablet ty 1 TABLET BY 1 TABLET BY TAKE 1 Hospita MOUTH DAILY MOUTH DAILY TABLET BY l MOUTH Clinics DAILY meloxicam meloxicam No meloxicam [place] 15 mg 15 mg 15 mg Communi tablet TAKE tablet TAKE tablet ty 1 TABLET BY 1 TABLET BY TAKE 1 Hospita MOUTH DAILY MOUTH DAILY TABLET BY l MOUTH Clinics DAILY methocarbam methocarbam No methocarba [place] ol 500 mg ol 500 mg mol 500 mg [facility]i tablet TAKE tablet TAKE tablet ty 1 TABLET BY 1 TABLET BY TAKE 1 Hospita MOUTH EVERY MOUTH EVERY TABLET BY l 8 (EIGHT) 8 (EIGHT) MOUTH Clin ics HOURS HOURS EVERY 8 NEEDED FOR NEEDED FOR (EIGHT) MUSCLE MUSCLE HOURS SPASMS FOR SPASMS FOR NEEDED FOR UP TO 30 UP TO 30 MUSCLE DAYS. DAYS. SPASMS FOR UP TO 30 DAYS. omeprazole omeprazole No omeprazole [place] 40 mg 40 mg 40 mg [facility] capsule,del capsule,del capsule,de ty ayed ayed layed Hospita release release release l TAKE 1 TAKE 1 TAKE 1 Clinics CAPSULE BY CAPSULE BY CAPSULE BY MOUTH TWICE MOUTH TWICE MOUTH A DAY FOR A DAY FOR TWICE A 30 DAYS 30 DAYS DAY FOR 30 DAYS OneTouch OneTouch No OneTouch [facility] Lancets 30 Lancets 30 Lancets 30 ty gauge gauge gauge Hospita l Clinics OneTouch OneTouch No OneTouch [facility] Verio Flex Verio Flex Verio Flex Communi Meter USE Meter USE Meter USE ty DIRECTED DIRECTED H ospita DAILY TO DAILY TO DIRECTED l CHECK BLOOD CHECK BLOOD DAILY TO Clinics SUGAR SUGAR CHECK BLOOD SUGAR OneTouch OneTouch No OneTouch [facility] Verio test Verio test Verio test Communi strips USE strips USE strips USE ty TO CHECK TO CHECK TO CHECK [facility] BLOOD SUGAR BLOOD SUGAR BLOOD l TWICE A DAY TWICE A DAY SUGAR Clinics TWICE A DAY ropinirole ropinirole No 1 Q1D ropinirole [place] 0.5 mg 0.5 mg 0.5 mg Communi tablet Take tablet Take tablet ty 1 tablet 1 tablet Take 1 Hospi ta every day every day tablet l by oral by oral every day Clin ics route at route at by oral bedtime. bedtime. route at bedtime. tadalafil tadalafil No tadalafil [place] 10 mg 10 mg 10 mg [facility] tablet TAKE tablet TAKE tablet ty ONE (1) ONE (1) TAKE ONE Hospi ta TABLET(S) TABLET(S) (1) l BY MOUTH BY MOUTH TABLET(S) Cl inics ONCE EVERY ONCE EVERY BY MOUTH 72 HOURS 72 HOURS ONCE EVERY NEEDED. NEEDED. 72 HOURS NEEDED. triamcinolo triamcinolo No triamcinol [place] ne ne one Communi acetonide acetonide acetonide ty 0.025 % 0.025 % 0.025 % Hospit a topical topical topical l cream APPLY cream APPLY cream Clinics A THIN A THIN APPLY A LAYER TO LAYER TO THIN LAYER THE THE TO THE AFFECTED AFFECTED AFFECTED AREA(S) BY AREA(S) BY AREA(S) BY TOPICAL TOPICAL TOPICAL ROUTE 2 ROUTE 2 ROUTE 2 TIMES PER TIMES PER TIMES PER DAY DAY DAY triamcinolo triamcinolo No triamcinol [place] ne ne one Communi acetonide acetonide acetonide ty 0.1 % 0.1 % 0.1 % Hospita topical topical topical l cream APPLY cream APPLY cream Clinics A THIN A THIN APPLY A LAYER TO LAYER TO THIN LAYER THE THE TO THE AFFECTED AFFECTED AFFECTED AREA(S) BY AREA(S) BY AREA(S) BY TOPICAL TOPICAL TOPICAL ROUTE 2 ROUTE 2 ROUTE 2 TIMES PER TIMES PER TIMES PER DAY, NEVER DAY, NEVER DAY, NEVER TO FACE TO FACE TO FACE triamterene triamterene No triamteren [place] 75 75 e 75 Communi mg-hydrochl mg-hydrochl mg-hydroch ty orothiazide orothiazide lorothiazi [facility]osp[facility] 50 mg 50 mg de 50 mg l tablet TAKE tablet TAKE tablet Clinics 1 TABLET BY 1 TABLET BY TAKE 1 MOUTH DAILY MOUTH DAILY TABLET BY MOUTH DAILY venlafaxine venlafaxine No venlafaxin [place] ER 150 mg ER 150 mg e ER 150 C [facility] capsule,ext capsule,ext mg t y ended ended capsule,ex Hospita release 24 release 24 tended l hr TAKE 1 hr TAKE 1 release 24 Clinics CAPSULE BY CAPSULE BY hr TAKE 1 MOUTH DAILY MOUTH DAILY CAPSULE BY MOUTH DAILY allopurinol allopurinol No allopurino [place] 100 mg 100 mg l 100 mg Communi tablet TAKE tablet TAKE tablet ty 1 TABLET BY 1 TABLET BY TAKE 1 Hospita MOUTH EVERY MOUTH EVERY TABLET BY l DAY DAY MOUTH Clinics EVERY DAY amlodipine amlodipine No amlodipine [place] 10 10 10 Communi mg-valsarta mg-valsarta mg-valsart ty n 320 mg n 320 mg an 320 mg [facility] tablet TAKE tablet TAKE tablet l 1 TABLET BY 1 TABLET BY TAKE 1 [facility] MOUTH EVERY MOUTH EVERY TABLET BY DAY DAY MOUTH EVERY DAY atorvastati atorvastati No atorvastat [place] n 10 mg n 10 mg in 10 mg Commu ni tablet TAKE tablet TAKE tablet ty 1 TABLET BY 1 TABLET BY TAKE 1 [facility] MOUTH EVERY MOUTH EVERY TABLET BY l DAY DAY MOUTH Clinics EVERY DAY Immunizations Ordered Immunization Filled Immunization Date Status Commen Source Name Name Influenza vaccine, Influenza vaccine, 2021-12-09 Completed [place] quadrivalent[facility], [facility] Influenza vaccine, Influenza vaccine, 2021-12-09 Completed [place] quadrivalent, quadrivalent, [facility] Influenza vaccine, Influenza vaccine, 2021-12-09 Completed [place] quadrivalent, quadrivalent, [facility] Influenza vaccine, Influenza vaccine, 2021-12-09 Completed [place] quadrivalent, quadrivalent, [facility] Influenza vaccine, Influenza vaccine, 2021-12-09 Completed [place] quadrivalent, quadrivalent, 00:00:00 Communit y adjuvanted adjuvanted [facility] influenza, influenza, 2020-12-05 Completed [place] injectable, injectable, 17:56:59 [facility] quadrivalent, quadrivalent, [facility] preservative free preservative free Clinics influenza, influenza, 2020-12-05 Completed [place] injectable, injectable, 17:56:59 [facility] quadrivalent, quadrivalent, Hospital preservative free preservative free Clinics influenza, influenza, 2020-12-05 Completed [place] injectable, injectable, 17:56:59 [facility] quadrivalent, quadrivalent, Hospital preservative free preservative free Clinics influenza, influenza, 2020-12-05 Completed [place] injectable, injectable, 17:56:59 [facility] quadrivalent, quadrivalent, Hospital preservative free preservative free Clinics influenza, influenza, 2020-12-05 Completed [place] injectable, injectable, 17:56:59 [facility] quadrivalent, quadrivalent, [facility] preservative free preservative free Clinics influenza, influenza, 2020-12-05 Completed [place] injectable, injectable, 17:56:59 [facility] quadrivalent, quadrivalent, Hospital preservative free preservative free Clinics influenza, influenza, 2020-12-05 Completed [place] injectable, injectable, 17:56:59 Community quadrivalent, quadrivalent, Hospital preservative free preservative free Clinics influenza, influenza, 2020-12-05 Completed [place] injectable, injectable, 17:56:59 Community quadrivalent, quadrivalent, Hospital preservative free preservative free Clinics influenza, influenza, 2020-12-05 Completed [place] injectable, injectable, 17:56:59 Community quadrivalent, quadrivalent, [facility] preservative free preservative free Clinics influenza, influenza, 2020-12-05 Completed [place] injectable, injectable, 17:56:59 Community quadrivalent, quadrivalent, Hospital preservative free preservative free Clinics influenza, influenza, 2020-12-05 Completed [place] injectable, injectable, 17:56:59 [facility] quadrivalent, quadrivalent, [facility] preservative free preservative free Clinics influenza, influenza, 2020-12-05 Completed [place] injectable, injectable, 17:56:59 [facility] quadrivalent, quadrivalent, [facility] preservative free preservative free Clinics influenza, influenza, 2020-12-05 Completed [place] injectable, injectable, 17:56:59 [facility] quadrivalent, quadrivalent, [facility] preservative free preservative free Clinics influenza, influenza, 2020-12-05 Completed [place] injectable, injectable, 17:56:59 [facility] quadrivalent, quadrivalent, [facility] preservative free preservative free Clinics influenza, influenza, 2020-12-05 Completed [place] injectable, injectable, 17:56:59 [facility] quadrivalent, quadrivalent, Hospital preservative free preservative free Clinics influenza, influenza, 2020-12-05 Completed [place] injectable, injectable, 17:56:59 Community quadrivalent, quadrivalent, Hospital preservative free preservative free Clinics pneumococcal pneumococcal 2020-12-05 Completed [place] polysaccharide PPV23 polysaccharide PPV23 17:56:27 [facility] pneumococcal pneumococcal 2020-12-05 Completed [place] polysaccharide PPV23 polysaccharide PPV23 17:56:27 [facility] pneumococcal pneumococcal 2020-12-05 Completed [place] polysaccharide PPV23 polysaccharide PPV23 17:56:27 [facility] pneumococcal pneumococcal 2020-12-05 Completed [place] polysaccharide PPV23 polysaccharide PPV23 17:56:27 [facility] pneumococcal pneumococcal 2020-12-05 Completed [place] polysaccharide PPV23 polysaccharide PPV23 17:56:27 [facility] pneumococcal pneumococcal 2020-12-05 Completed [place] polysaccharide PPV23 polysaccharide PPV23 17:56:27 [facility] pneumococcal pneumococcal 2020-12-05 Completed [place] polysaccharide PPV23 polysaccharide PPV23 17:56:27 [facility] pneumococcal pneumococcal 2020-12-05 Completed [place] polysaccharide PPV23 polysaccharide PPV23 17:56:27 [facility] pneumococcal pneumococcal 2020-12-05 Completed [place] polysaccharide PPV23 polysaccharide PPV23 17:56:27 [facility] pneumococcal pneumococcal 2020-12-05 Completed [place] polysaccharide PPV23 polysaccharide PPV23 17:56:27 [facility] pneumococcal pneumococcal 2020-12-05 Completed [place] polysaccharide PPV23 polysaccharide PPV23 17:56:27 [facility] pneumococcal pneumococcal 2020-12-05 Completed [place] polysaccharide PPV23 polysaccharide PPV23 17:56:27 [facility] pneumococcal pneumococcal 2020-12-05 Completed [place] polysaccharide PPV23 polysaccharide PPV23 17:56:27 [facility] pneumococcal pneumococcal 2020-12-05 Completed [place] polysaccharide PPV23 polysaccharide PPV23 17:56:27 [facility] pneumococcal pneumococcal 2020-12-05 Completed [place] polysaccharide PPV23 polysaccharide PPV23 17:56:27 [facility] pneumococcal pneumococcal 2020-12-05 Completed [place] polysaccharide PPV23 polysaccharide PPV23 17:56:27 [facility] SARS-COV-2 (COVID-19) SARS-COV-2 2020-05-29 Completed [facility] [place] vaccine, UNSPECIFIED (COVID-19) vaccine, 00:00:00 [facility] SARS-COV-2 (COVID-19) SARS-COV-2 2020-05-29 Completed [facility] [place] vaccine, UNSPECIFIED (COVID-19) vaccine, 00:00:00 [facility] SARS-COV-2 (COVID-19) SARS-COV-2 2020-05-29 Completed [facility] [place] vaccine, UNSPECIFIED (COVID-19) vaccine, 00:00:00 [facility] SARS-COV-2 (COVID-19) SARS-COV-2 2020-05-29 Completed [facility] [place] vaccine, UNSPECIFIED (COVID-19) vaccine, 00:00:00 [facility]PEC[facility]IED [facility] SARS-COV-2 (COVID-19) SARS-COV-2 2020-05-29 Completed [facility] [place] vaccine, UNSPECIFIED (COVID-19) vaccine, 00:00:00 [facility]PEC[facility]IED [facility] Clin[facility] SARS-COV-2 (COVID-19) SARS-COV-2 2020-05-29 Completed [facility] [place] vaccine, UNSPECIFIED (COVID-19) vaccine, 00:00:00 [facility]PEC[facility]IED [facility] COVID-19 (SARS-COV-2) COVID-19 2020-05-29 Completed [facility] [place] vaccine, unspecified (SARS-COV-2) 00:00:00 [facility] vaccine, unspecified [facility] COVID-19 (SARS-COV-2) COVID-19 2020-05-29 Completed [facility] [place] vaccine, unspecified (SARS-COV-2) 00:00:00 [facility] vaccine, unspecified [facility] COVID-19 (SARS-COV-2) COVID-19 2020-05-29 Completed [facility] [place] vaccine, unspecified (SARS-COV-2) 00:00:00 [facility] vaccine, unspecified [facility] COVID-19 (SARS-COV-2) COVID-19 2020-05-29 Completed [facility] [place] vaccine, unspecified (SARS-COV-2) 00:00:00 [facility] vaccine, unspecified [facility] COVID-19 (SARS-COV-2) COVID-19 2020-05-29 Completed [facility] [place] vaccine, unspecified (SARS-COV-2) 00:00:00 [facility] vaccine, unspecified [facility] COVID-19 (SARS-COV-2) COVID-19 2020-05-29 Completed [facility] [place] vaccine, unspecified (SARS-COV-2) 00:00:00 [facility] vaccine, unspecified [facility] COVID-19 (SARS-COV-2) COVID-19 2020-05-29 Completed [facility] [place] vaccine, unspecified (SARS-COV-2) 00:00:00 [facility] vaccine, unspecified [facility] COVID-19 (SARS-COV-2) COVID-19 2020-05-29 Completed [facility] [place] vaccine, unspecified (SARS-COV-2) 00:00:00 [facility] vaccine, unspecified [facility] COVID-19 (SARS-COV-2) COVID-19 2020-05-29 Completed [facility] [place] vaccine, unspecified (SARS-COV-2) 00:00:00 [facility] vaccine, unspecified Hosp ital [facility] COVID-19 (SARS-COV-2) COVID-19 2020-05-29 Completed [facility] [place] vaccine, unspecified (SARS-COV-2) 00:00:00 [facility] vaccine, unspecified Hosp ital [facility] COVID-19 (SARS-COV-2) COVID-19 2020-05-29 Completed [facility] [place] vaccine, unspecified (SARS-COV-2) 00:00:00 [facility] vaccine, unspecified [facility] COVID-19 (SARS-COV-2) COVID-19 2020-05-29 Completed [facility] [place] vaccine, unspecified (SARS-COV-2) 00:00:00 [facility] vaccine, unspecified Hosp ital [facility] COVID-19 (SARS-COV-2) COVID-19 2020-05-29 Completed [facility] [place] vaccine, unspecified (SARS-COV-2) 00:00:00 [facility] vaccine, unspecified Hosp ital [facility] COVID-19 (SARS-COV-2) COVID-19 2020-05-29 Completed [facility] [place] vaccine, unspecified (SARS-COV-2) 00:00:00 [facility] vaccine, unspecified [facility] COVID-19, mRNA, COVID-19, mRNA, 2020-05-08 Completed [facility] LNP-S, PF, 30 mcg/0.3 LNP-S, PF, 30 00:00:00 Community mL dose mcg/0.3 mL dose Hospital Clinics COVID-19, mRNA, COVID-19, mRNA, 2020-05-08 Completed [place] [place] LNP-S, PF, 30 mcg/0.3 LNP-S, PF, 30 00:00:00 Community mL dose mcg/0.3 mL dose Hospital Clinics COVID-19, mRNA, COVID-19, mRNA, 2020-05-08 Completed [place] LNP-S, PF, 30 mcg/0.3 LNP-S, PF, 30 00:00:00 Community mL dose mcg/0.3 mL dose [facility] COVID-19, mRNA, COVID-19, mRNA, 2020-05-08 Completed [place] LNP-S, PF, 30 mcg/0.3 LNP-S, PF, 30 00:00:00 Community mL dose mcg/0.3 mL dose [facility] COVID-19, mRNA, COVID-19, mRNA, 2020-05-08 Completed [place] [place] LNP-S, PF, 30 mcg/0.3 LNP-S, PF, 30 00:00:00 Community mL dose mcg/0.3 mL dose [facility] COVID-19, mRNA, COVID-19, mRNA, 2020-05-08 Completed [place] LNP-S, PF, 30 mcg/0.3 LNP-S, PF, 30 00:00:00 Community mL dose mcg/0.3 mL dose [facility] COVID-19, mRNA, COVID-19, mRNA, 2020-05-08 Completed [place] LNP-S, PF, 30 mcg/0.3 LNP-S, PF, 30 00:00:00 Community mL dose mcg/0.3 mL dose [facility] ([facility]) ([facility] COVID-19, mRNA, COVID-19, mRNA, 2020-05-08 Completed [place] LNP-S, PF, 30 mcg/0.3 LNP-S, PF, 30 00:00:00 Community mL dose mcg/0.3 mL dose [facility] ([facility]) ([facility] COVID-19, mRNA, COVID-19, mRNA, 2020-05-08 Completed [place] LNP-S, PF, 30 mcg/0.3 LNP-S, PF, 30 00:00:00 Community mL dose mcg/0.3 mL dose [facility] ([facility]) ([facility] COVID-19, mRNA, COVID-19, mRNA, 2020-05-08 Completed [place] LNP-S, PF, 30 mcg/0.3 LNP-S, PF, 30 00:00:00 Community mL dose mcg/0.3 mL dose Hospital ([facility]) ([facility] COVID-19, mRNA, COVID-19, mRNA, 2020-05-08 Completed [place] LNP-S, PF, 30 mcg/0.3 LNP-S, PF, 30 00:00:00 Community mL dose mcg/0.3 mL dose Hospital ([facility]) ([facility] COVID-19, mRNA, COVID-19, mRNA, 2020-05-08 Completed [place] LNP-S, PF, 30 mcg/0.3 LNP-S, PF, 30 00:00:00 Community mL dose mcg/0.3 mL dose Hospital ([facility]) ([facility] COVID-19, mRNA, COVID-19, mRNA, 2020-05-08 Completed [place] LNP-S, PF, 30 mcg/0.3 LNP-S, PF, 30 00:00:00 Community mL dose mcg/0.3 mL dose Hospital ([facility]) ([facility] COVID-19, mRNA, COVID-19, mRNA, 2020-05-08 Completed [place] LNP-S, PF, 30 mcg/0.3 LNP-S, PF, 30 00:00:00 Community mL dose mcg/0.3 mL dose Hospital ([facility]) ([facility] COVID-19, mRNA, COVID-19, mRNA, 2020-05-08 Completed [place] LNP-S, PF, 30 mcg/0.3 LNP-S, PF, 30 00:00:00 Community mL dose mcg/0.3 mL dose Hospital ([facility]) ([facility] COVID-19, mRNA, COVID-19, mRNA, 2020-05-08 Completed [place] LNP-S, PF, 30 mcg/0.3 LNP-S, PF, 30 00:00:00 Community mL dose mcg/0.3 mL dose Hospital ([facility]) ([facility] COVID-19, mRNA, COVID-19, mRNA, 2020-05-08 Completed [place] LNP-S, PF, 30 mcg/0.3 LNP-S, PF, 30 00:00:00 Community mL dose mcg/0.3 mL dose [facility] ([facility]) ([facility] COVID-19, mRNA, COVID-19, mRNA, 2020-05-08 Completed [place] LNP-S, PF, 30 mcg/0.3 LNP-S, PF, 30 00:00:00 Community mL dose mcg/0.3 mL dose Hospital ([facility]) ([facility] COVID-19, mRNA, COVID-19, mRNA, 2020-05-08 Completed [place] LNP-S, PF, 30 mcg/0.3 LNP-S, PF, 30 00:00:00 Community mL dose mcg/0.3 mL dose [facility] ([facility]) ([facility] COVID-19, mRNA, COVID-19, mRNA, 2020-05-08 Completed [place] LNP-S, PF, 30 mcg/0.3 LNP-S, PF, 30 00:00:00 Community mL dose mcg/0.3 mL dose [facility] ([facility]) ([facility] influenza, high-dose, influenza, 2019-12-09 Completed [place] quadrivalent high-dose, 00:00:00 [facility] influenza, high-dose, influenza, 2019-12-09 Completed [place] quadrivalent high-dose, 00:00:00 [facility] influenza, high-dose, influenza, 2019-12-09 Completed [place] quadrivalent high-dose, 00:00:00 [facility] influenza, high-dose, influenza, 2019-12-09 Completed [place] quadrivalent high-dose, 00:00:00 [facility] influenza, high-dose, influenza, 2019-12-09 Completed [place] quadrivalent high-dose, 00:00:00 [facility] influenza, high-dose, influenza, 2019-12-09 Completed [place] quadrivalent high-dose, 00:00:00 [facility] influenza, high-dose, influenza, 2019-12-09 Completed [place] quadrivalent high-dose, 00:00:00 [facility] influenza, high-dose, influenza, 2019-12-09 Completed [place] quadrivalent high-dose, 00:00:00 [facility] influenza, high-dose, influenza, 2019-12-09 Completed [place] quadrivalent high-dose, 00:00:00 [facility] influenza, high-dose, influenza, 2019-12-09 Completed [place] quadrivalent high-dose, 00:00:00 [facility] influenza, high-dose, influenza, 2019-12-09 Completed [place] quadrivalent high-dose, 00:00:00 [facility] influenza, high-dose, influenza, 2019-12-09 Completed [place] quadrivalent high-dose, 00:00:00 [facility] influenza, high-dose, influenza, 2019-12-09 Completed [place] quadrivalent high-dose, 00:00:00 [facility] influenza, high-dose, influenza, 2019-12-09 Completed [place] quadrivalent high-dose, 00:00:00 [facility] influenza, high-dose, influenza, 2019-12-09 Completed [place] quadrivalent high-dose, 00:00:00 [facility] influenza, high-dose, influenza, 2019-12-09 Completed [place] quadrivalent high-dose, 00:00:00 [facility] influenza, high-dose, influenza, 2019-12-09 Completed [place] quadrivalent high-dose, 00:00:00 [facility] influenza, high-dose, influenza, 2019-12-09 Completed [place] quadrivalent high-dose, 00:00:00 [facility] influenza, high-dose, influenza, 2019-12-09 Completed [place] quadrivalent high-dose, 00:00:00 [facility] influenza, high-dose, influenza, 2019-12-09 Completed [place] quadrivalent high-dose, 00:00:00 [facility] influenza, high-dose, influenza, 2019-12-09 Completed [place] quadrivalent high-dose, 00:00:00 [facility] influenza, influenza, 2018-10-29 Completed [place] injectable, injectable, 00:00:00 [facility] influenza, influenza, 2018-10-29 Completed [place] injectable, injectable, 00:00:00 [facility] [place] influenza, influenza, 2018-10-29 Completed [place] injectable, injectable, 00:00:00 [facility] [place] influenza, influenza, 2018-10-29 Completed [place] injectable, injectable, 00:00:00 [facility] [place] influenza, influenza, 2018-10-29 Completed [place] injectable, injectable, 00:00:00 [facility] [place] influenza, influenza, 2018-10-29 Completed [place] injectable, injectable, 00:00:00 [facility] [place] influenza, influenza, 2018-10-29 Completed [place] injectable, injectable, 00:00:00 [facility] influenza, influenza, 2018-10-29 Completed [place] injectable, injectable, 00:00:00 [facility] [place] influenza, influenza, 2018-10-29 Completed [place] injectable, injectable, 00:00:00 [facility] influenza, influenza, 2018-10-29 Completed [place] injectable, injectable, 00:00:00 [facility] [place] influenza, high dose influenza, high dose 2018-10-29 Completed [place] seasonal seasonal 00:00:00 [facility] influenza, high dose influenza, high dose 2018-10-29 Completed [place] seasonal seasonal 00:00:00 [facility] influenza, high dose influenza, high dose 2018-10-29 Completed [place] seasonal seasonal 00:00:00 [facility] influenza, high dose influenza, high dose 2018-10-29 Completed [place] seasonal seasonal 00:00:00 [facility] influenza, high dose influenza, high dose 2018-10-29 Completed [place] seasonal seasonal 00:00:00 [facility] influenza, high dose influenza, high dose 2018-10-29 Completed [place] seasonal seasonal 00:00:00 [facility] influenza, high dose influenza, high dose 2018-10-29 Completed [place] seasonal seasonal 00:00:00 [facility] influenza, high dose influenza, high dose 2018-10-29 Completed [place] seasonal seasonal 00:00:00 [facility] influenza, high dose influenza, high dose 2018-10-29 Completed [place] seasonal seasonal 00:00:00 [facility] influenza, high dose influenza, high dose 2018-10-29 Completed [place] seasonal seasonal 00:00:00 [facility] influenza, high dose influenza, high dose 2018-10-29 Completed [place] seasonal seasonal 00:00:00 [facility] influenza, influenza, 2017-10-22 Completed [place] unspecified unspecified 00:00:00 [facility] formulation formulation [facility] influenza, influenza, 2017-10-22 Completed [place] unspecified unspecified 00:00:00 [facility] formulation formulation [facility] influenza, influenza, 2017-10-22 Completed [place] unspecified unspecified 00:00:00 [facility] formulation formulation [facility] influenza, influenza, 2017-10-22 Completed [place] unspecified unspecified 00:00:00 [facility] formulation formulation [facility] influenza, influenza, 2017-10-22 Completed [place] unspecified unspecified 00:00:00 [facility] formulation formulation [facility] influenza, influenza, 2017-10-22 Completed [place] unspecified unspecified 00:00:00 [facility] formulation formulation [facility] influenza, influenza, 2017-10-22 Completed [place] unspecified unspecified 00:00:00 [facility] formulation formulation [facility] influenza, influenza, 2017-10-22 Completed [place] unspecified unspecified 00:00:00 [facility] formulation formulation [facility] influenza, influenza, 2017-10-22 Completed [place] unspecified unspecified 00:00:00 [facility] formulation formulation [facility] influenza, influenza, 2017-10-22 Completed [place] unspecified unspecified 00:00:00 [facility] formulation formulation [facility] influenza, influenza, 2017-10-22 Completed [place] unspecified unspecified 00:00:00 [facility] formulation formulation [facility] influenza, influenza, 2017-10-22 Completed [place] unspecified unspecified 00:00:00 Community formulation formulation [facility] influenza, influenza, 2017-10-22 Completed [place] unspecified unspecified 00:00:00 Community formulation formulation [facility] influenza, influenza, 2017-10-22 Completed [place] unspecified unspecified 00:00:00 [facility] formulation formulation [facility] influenza, influenza, 2017-10-22 Completed [place] unspecified unspecified 00:00:00 [facility] formulation formulation [facility] influenza, influenza, 2017-10-22 Completed [place] unspecified unspecified 00:00:00 [facility] influenza, influenza, 2017-10-22 Completed [place] unspecified unspecified 00:00:00 [facility] influenza, influenza, 2017-10-22 Completed [place] unspecified unspecified 00:00:00 [facility] influenza, influenza, 2017-10-22 Completed [place] unspecified unspecified 00:00:00 [facility] influenza, influenza, 2017-10-22 Completed [place] unspecified unspecified 00:00:00 [facility] influenza, influenza, 2017-10-22 Completed [place] unspecified unspecified 00:00:00 [facility] Vital Signs Vital Name Observation Time Observation Value Comments Source BP Diastolic 2022-04-10 00:00:00 68 mm[Hg] [facility] Height 2022-04-10 00:00:00 70 [in_i] [facility] BMI (Body Mass 2022-04-10 00:00:00 33.6 kg/m2 [facility] BP Systolic 2022-04-10 00:00:00 119 mm[Hg] [facility] Body Weight 2022-04-10 00:00:00 3750.4 [oz_av] [facility] s BP Diastolic 2022-03-08 00:00:00 60 mm[Hg] [facility] Height 2022-03-08 00:00:00 70 [in_i] [facility] BMI (Body Mass 2022-03-08 00:00:00 34.4 kg/m2 [facility] BP Systolic 2022-03-08 00:00:00 120 mm[Hg] [facility] Body Weight 2022-03-08 00:00:00 3833.6 [oz_av] [facility] s BP Diastolic 2022-02-05 00:00:00 80 mm[Hg] [facility] Height 2022-02-05 00:00:00 70 [in_i] [facility] BMI (Body Mass 2022-02-05 00:00:00 35.5 kg/m2 [facility] s BP Systolic 2022-02-05 00:00:00 120 mm[Hg] [facility] Body Weight 2022-02-05 00:00:00 3955.2 [oz_av] [facility] BP Diastolic 2022-01-03 00:00:00 78 mm[Hg] [facility] Height 2022-01-03 00:00:00 70 [in_i] [facility] BMI (Body Mass 2022-01-03 00:00:00 35.1 kg/m2 [facility] s BP Systolic 2022-01-03 00:00:00 110 mm[Hg] [facility] Body Weight 2022-01-03 00:00:00 3910.4 [oz_av] [facility] BP Diastolic 2021-10-04 00:00:00 80 mm[Hg] [facility] Height 2021-10-04 00:00:00 70 [in_i] [facility] BMI (Body Mass 2021-10-04 00:00:00 35.9 kg/m2 [facility] s BP Systolic 2021-10-04 00:00:00 118 mm[Hg] [facility] Body Weight 2021-10-04 00:00:00 4006.4 [oz_av] [facility] BP Diastolic 2021-07-06 00:00:00 90 mm[Hg] [facility] Height 2021-07-06 00:00:00 70 [in_i] [facility] BMI (Body Mass 2021-07-06 00:00:00 37.1 kg/m2 [facility] s BP Systolic 2021-07-06 00:00:00 120 mm[Hg] [facility] Body Weight 2021-07-06 00:00:00 4137.6 [oz_av] [facility] BP Diastolic 2021-06-22 00:00:00 80 mm[Hg] [facility] Height 2021-06-22 00:00:00 70 [in_i] [facility] BMI (Body Mass 2021-06-22 00:00:00 37.8 kg/m2 [facility] s BP Systolic 2021-06-22 00:00:00 138 mm[Hg] [facility] Body Weight 2021-06-22 00:00:00 4217.6 [oz_av] [facility] Height 2021-04-25 00:00:00 70 [in_i] [facility] BP Diastolic 2021-03-01 00:00:00 80 mm[Hg] [facility] Height 2021-03-01 00:00:00 70 [in_i] [facility] BMI (Body Mass 2021-03-01 00:00:00 37.2 kg/m2 [facility] s BP Systolic 2021-03-01 00:00:00 138 mm[Hg] [facility] Body Weight 2021-03-01 00:00:00 4153.6 [oz_av] [facility] BP Diastolic 2020-12-26 00:00:00 80 mm[Hg] [facility] Height 2020-12-26 00:00:00 70 [in_i] [facility] BMI (Body Mass 2020-12-26 00:00:00 37.4 kg/m2 [facility]) [facility] BP Systolic 2020-12-26 00:00:00 130 mm[Hg] [facility] Body Weight 2020-12-26 00:00:00 4169.6 [oz_av] [facility] BP Diastolic 2020-12-05 00:00:00 78 mm[Hg] [facility] Height 2020-12-05 00:00:00 70 [in_i] [facility] BMI (Body Mass 2020-12-05 00:00:00 37.6 kg/m2 [facility]) [facility] BP Systolic 2020-12-05 00:00:00 122 mm[Hg] [facility] Body Weight 2020-12-05 00:00:00 4192 [oz_av] [facility] BP Diastolic 2020-10-18 00:00:00 90 mm[Hg] [facility] Height 2020-10-18 00:00:00 70 [in_i] [facility] BP Systolic 2020-10-18 00:00:00 169 mm[Hg] [facility] BP Diastolic 2020-10-06 00:00:00 80 mm[Hg] [facility] Height 2020-10-06 00:00:00 70 [in_i] [facility] BMI (Body Mass 2020-10-06 00:00:00 37.9 kg/m2 [facility]) [facility] BP Systolic 2020-10-06 00:00:00 118 mm[Hg] [facility] Body Weight 2020-10-06 00:00:00 4230.4 [oz_av] [facility] s BP Diastolic 2020-04-20 00:00:00 80 mm[Hg] [facility] Height 2020-04-20 00:00:00 70 [in_i] [facility] BMI (Body Mass 2020-04-20 00:00:00 38.6 kg/m2 [facility]) [facility] BP Systolic 2020-04-20 00:00:00 128 mm[Hg] [facility] Body Weight 2020-04-20 00:00:00 4304 [oz_av] [facility] Systolic blood 2021-10-26 15:51:00 116 mm[Hg] [facility] pressure Diastolic blood 2021-10-26 15:51:00 65 mm[Hg] [facility] pressure Heart rate 2021-10-26 15:51:00 50 /min [facility] Body temperature 2021-10-26 15:51:00 36.67 Debbie [facility] Body height 2021-10-26 15:51:00 177.8 cm [facility] Body weight 2021-10-26 15:51:00 117.482 kg [facility] BMI 2021-10-26 15:51:00 37.16 kg/m2 [facility] Procedures Procedure Date / Time Performed Performing Clinician Sour e Back Surgery 2021-09-25 00:00:00 [facility] Tonsillectomy [facility] Shoulder Joint Surgery [facility] Plan of Care Planned Activity Planned Date Details Comments Source Future Scheduled Test 2022-10-22 Screening for [facility] 22:54:46 malignant neoplasm of colon (procedure) [code = 513534440] Future Scheduled Test 2022-10-22 [facility] 22:54:46 malignant neoplasm of colon (procedure) [code = 525249345] Future Scheduled Test 2022-10-22 [facility] 22:54:46 malignant neoplasm of colon (procedure) [code = 066811304] Future Scheduled Test 2022-10-22 Hepatitis C Method [facility] 22:54:46 screening (procedure) [code = 666211187] Future Scheduled Test 2022-10-22 [facility] 22:54:46 malignant neoplasm of colon (procedure) [code = 991620795] Future Scheduled Test 2022-10-22 [facility] 22:54:46 malignant neoplasm of colon (procedure) [code = 437011020] Future Scheduled Test 2022-10-22 SHINGLES VACCINES [facility] 22:54:46 (1 of 2) [code = SHINGLES VACCINES (1 of 2)] Future Scheduled Test 2022-10-22 COVID-19 VACCINE ([address] [place] [address] 22:54:46 - Pfizer series) [code = COVID-19 VACCINE ( - Pfizer series)] Future Scheduled Test 2022-10-22 INFLUENZA VACCINE [facility] 22:54:46 (#1) [code = INFLUENZA VACCINE (#1)] Diagnostic Test 2022-04-10 HbA1c (hemoglobin [place] [facility] Pending 00:00:00 A1c), blood [code = Hospital Clinics HbA1c (hemoglobin A1c), blood] Encounters Start End Encounter Admission Attending Care Care Encounter Source Date/Time Date/Time Type Type Clinicians Facility Department ID 2022-04-10 2022-04-10 Jenise Quevedo [facility] [place] [facility] [place] 214 [place] 00:00:00 00:00:00 Dennys Abebe MD: [address] [facility] [address] [facility] Clinic [place], [place] CL[place]IC, [address] KYLE , Ph. 2022-03-08 2022-03-08 Jenise Quevedo [facility] [place] [facility] [place] 112 [place] 00:00:00 00:00:00 Dennys Abebe MD: [address] [facility] [address] [facility] [address], HOSPITAL Clinic s [place], [place] CL[place]IC, [address] KYLE , Ph. 2022-02-06 2022-02-06 Outpatient KEALLISON_[facility] [id number] [place] 00:00:00 00:00:00 112 [facility] 2022-02-06 2022-02-06 Outpatient KEFFER_A [facility] [id number] [place] 00:00:00 00:00:00 [facility] 2022-02-05 2022-02-05 Outpatient JOYCELYNFFER_[facility] [id number] [place] 00:00:00 00:00:00 212 [facility] 2022-02-05 2022-02-05 Jenise Quevedo [facility] [place] [facility] [place] 212 [place] 00:00:00 00:00:00 [facility]be [facility] [address] [facility] [address] [address] [place], [place], [address] KYLE , Ph. 2022-01-03 2022-01-03 Out[address] KYLE_[facility] [id number] [place] 00:00:00 00:00:00 109 [facility] 2022-01-03 2022-01-03 Jenise Quevedo [facility] [place] [facility] [place] 109 [place] 00:00:00 00:00:00 Dennys Abebe [facility] dev[facility] MD: [address] [facility] a [address], [facility] [address], [facility], [address] KYLE , Ph. 2021-10-26 2021-10-26 Office Rosie [id number] [facility]i 11:00:00 11:00:00 Visit Vivian [id number] [facility] [id number] Hospit a .[id number] l .8 2021-10-26 2021-10-26 Outpatient ROSIE, [facility] [id number] [place] 00:00:00 00:00:[address] 2021-10-26 2021-10-26 Travel [id number] [facility] 00:00:00 00:00:[id number] [id number] [facility] .[id number] 084.8 l .8 2021-10-16 2021-10-16 Out[address] KYLE_[facility] [id number] [place] 00:00:00 00:00:00 822 [facility] 2021-10-04 2021-10-04 Outpatient KYLE_[facility] [id number] [place] 00:00:00 00:00:00 810 [facility] ty Hosp[facility] l [facility] 2021-10-04 2021-10-04 Jenise Quevedo [facility] [place] [facility] [place] [id number] 810 [place] 00:00:00 00:00:00 Dennys Abebe MD: [address] [facility] Hospit a [address], COMM[facility] [address], HOSPITAL [place], [place] CLINIC, [address] KYLE , Ph. 2021-10-04 2021-10-[address] [facility] [id number] 00:00:00 00:00:00 Emy [id number] 2021-09-26 2021-09-26 [facility]patient [facility] [facility] [id number] 337 [place] 00:00:00 00:00:00 VIVIAN [address] 2021-09-04 2021-09-05 Outpatient SEAN, [facility] [id number] 102 [place] 00:00:00 00:00:[address] 2021-08-30 2021-08-30 Outpatient [facility] [id number] 573 [place] 00:00:00 00:00:00 VIVIAN [address] 2021-07-06 2021-07-[address] [facility] [id number] 0220 [place] 02:34:00 02:34:00 512 [facility] 2021-07-06 2021-07-06 Jenise Quevedo [facility] [place] [id number] 512 [place] 00:00:00 00:00:00 Dennys Abebe MD: [address] [facility] Hospit [address], COMMUNITY [address], HOSPITAL [place], [place] CL[place]IC, [address] KYLE , Ph. 2021-07-06 2021-07-[address] [facility] [id number] 00:00:00 00:00:00 Emy [id number] 2021-07-04 2021-07-04 [facility] [id number] 745 [place] 00:00:00 00:00:00 VIVIAN [address] 2021-06-23 2021-06-23 Outpatient KYLE_A [facility] [id number] 0 [place] 01:59:00 01:59:00 429 [facility] 2021-06-22 2021-06-22 Outpatient KYLE_A [facility] [id number] 0220 [place] 12:14:00 12:14:00 428 [facility] 2021-06-22 2021-06-22 Jenise Quevedo [facility] [place] 428 [place] 00:00:00 00:00:00 Dennys Abebe MD: [address] [facility] Hospit [address], COMMUNITY l [address], H[facility]PITAL [place], [place]IC, [address] KYLE , Ph. 2021-06-22 2021-06-[address] [facility] [id number] 00:00:00 00:00:00 Emy [id number] 2021-05-24 2021-05-24 Outpatient KYLE_A [facility] [id number] 0220 [place] 04:25:00 04:25:00 330 [facility] 2021-05-24 2021-05-24 Jenise Quevedo [facility] [place] 330 [place] 00:00:00 00:00:00 Dennys Abebe MD: [address] [facility] Hospit [address], COMMUNITY l [address], H[facility] [place], [place], [address] KYLE , Ph. 2021-05-24 2021-05-[address] [facility] [id number] 00:00:00 00:00:00 Emy [id number] 2021-05-18 2021-05-18 Outpatient [facility] [id number] [address] [place] [address] 00:00:00 00:00:00 VIVIAN [address] 2021-05-18 2021-05-18 Outpatient SUN, [facility] [id number] 871 [place] 00:00:00 00:00:00 VIVIAN [address] 2021-05-17 2021-05-17 Outpatient KEFFER_A [facility] [id number] 0220 [place] 10:21:00 10:21:00 323 [facility] Clin[facility] 2021-04-25 2021-04-25 Outpatient KEFFER_A [facility] [id number] 0220 [place] 09:31:00 09:31:00 301 Commun i [facility] Clinics 2021-04-25 2021-04-25 Rfank [facility] [place] 00:00:00 00:00:00 [facility]: [address] [facility] Karolina, Specialty l [address], [place] [address] , Ph. 2021-04-25 2021-04-[address] [facility] [id number] 00:00:00 00:00:00 Frank [id number] Arzola [id number] 2021-04-20 2021-04-20 Outpatient [facility] [id number] 290 [place] 00:00:00 00:00:[address] 2021-04-20 2021-04-20 Outpatient SUN, [facility] [id number] 800 [place] 00:00:00 00:00:00 VIVIAN [address] 2021-04-20 2021-04-20 Outpatient SUN, [facility] [id number] 800 [place] 00:00:00 00:00:00 VIVIAN [address] 2021-04-11 2021-04-11 Outpatient KEFFER_A [facility] [id number] 0220 [place] 10:24:00 10:24:00 215 Commun i ty Hospita [facility] Clinics 2021-04-11 2021-04-11 Frank [facility] [place] 00:00:00 00:00:00 [facility] MD: [address] [facility] [address] SURGERY , Ph. 2021-04-11 2021-04-11 [facility] [id number] 00:00:00 00:00:00 Frank [id number] Arzola [id number] 2021-03-16 2021-03-16 Outpatient KYLE_A [facility] [id number] 0220 [place] 10:34:00 10:34:00 120 Commun i ty Hospita l [facility] 2021-03-16 2021-03-16 [facility] [place] 00:00:00 00:00:00 [facility] MD: [address] [facility] [address], [place] [address] , Ph. 2021-03-16 2021-03-16 [facility] [id number] 00:00:00 00:00:00 Frank [id number] Arzola [id number] 2021-03-16 2021-03-16 [facility] [id number] 00:00:00 00:00:00 Frank [id number] Arzola [id number] 2021-03-01 2021-03-01 Outpatient KYLE_A [facility] [id number] 0220 [place] 12:03:00 12:03:00 105 Commun i ty Hospita l [facility] 2021-03-01 2021-03-01 Jenise Quevedo [facility] 105 [place] 00:00:00 00:00:00 Dennys Abebe MD: [address] [facility] Hospit a [address], COMMUNITY l [address], HOSPITAL [facility], [place] CLINIC, [address] KYLE , Ph. 2021-03-01 2021-03-[address] [facility] [id number] 00:00:00 00:00:00 Emy [id number] 2021-02-02 2021-02-02 Outpatient KEFFER_A [facility] [id number] 0211 [place] 01:02:00 01:02:00 209 Commun i ty [facility] Clinics 2020-12-28 2020-12-28 Outpatient KEFFER_A [facility] [id number] 1 [place] 01:17:00 01:17:00 103 Commun i ty Hospita [facility] Clinics 2020-12-26 2020-12-26 Outpatient JOYCELYNFFER_A [facility] [id number] 1 [place] 12:05:00 12:05:00 101 Commun i ty Hospita [facility] Clinics 2020-12-26 2020-12-[address] [facility] [id number] 00:00:00 00:00:00 Emy [id number] 2020-12-26 2020-12-26 Jenise Quevedo [facility] [place] 101 [place] 00:00:00 00:00:00 Dennys Abebe MD: [address] [facility] Hospit a [address], COMMUNITY l [address], [place], [place] CL[place]IC, [address] KYLE , Ph. 2020-12-06 2020-12-06 Outpatient KEFFER_A [facility] [id number] 1 [place] 10:20:00 10:20:00 012 Commun i ty Hospita [facility] Clinics 2020-12-05 2020-12-05 Outpatient KEFFER_Magali [facility] [id number] 0211 [place] 07:10:00 07:10:00 011 Commun i ty [facility]ospita [facility] Clinics 2020-12-05 2020-12-[address] [facility] [id number] 00:00:00 00:00:00 Emy [id number] 2020-12-05 2020-12-05 Jenise Quevedo [facility] 011 [place] 00:00:00 00:00:00 Dennys Abebe [facility] MD: [address] [facility] Hospit [address], [facility], HOSPITAL [place], [place] CLINIC, [address] KYLE , Ph. 2020-12-05 2020-12-[address] [facility] [id number] 00:00:00 00:00:00 Emy [id number] 2020-11-01 2020-11-01 Outpatient KYLE_A [facility] [id number] 0210 [place] 12:54:00 12:54:00 907 Commun i ty Hospita [facility] Clinics 2020-11-01 2020-11-[address] [facility] [id number] 00:00:00 00:00:00 Frank [id number] [place] [id number] 2020-11-01 2020-11-01 [facility] 07 [place] 00:00:00 00:00:00 [facility] [address] [facility] , Ph. 2020-10-20 2020-10-20 Outpatient KEFFER_A [facility] [id number] 0 [place] 05:10:00 05:10:00 826 Commun i ty Hospita [facility] Clinics 2020-10-18 2020-10-18 Outpatient KEFFER_Magali [facility] [id number] 0210 [place] 10:29:00 10:29:00 824 Commun i ty Hospita l Clinics 2020-10-18 2020-10-18 Frank [facility] [place] 24 [place] 00:00:00 00:00:00 [facility] MD: [address] [facility] l [address], [place] [address] , Ph. 2020-10-18 2020-10-[address] [facility] [id number] 00:00:00 00:00:00 Frank [id number] [place] [id number] 2020-10-06 2020-10-06 Outpatient KYLE_A [facility] [id number] 0 [place] 02:01:00 02:01:00 812 Commun i ty [facility]ospita [facility] Clinics 2020-10-06 2020-10-06 Jenise Quevedo [facility] 81 [place] 00:00:00 00:00:00 Dennys Abebe MD: [address] [facility] Hospit a [address], COMMUNITY l [address], H[place]PITAL [place], [place], [address] KYLE , Ph. 2020-10-06 2020-10-[address] [facility] [id number] 00:00:00 00:00:00 Emy [id number] 2020-05-13 2020-05-13 Outpatient KEFFER_A [facility] [id number] 0 [place] 01:02:00 01:02:00 319 Commun i ty [facility]ospita [facility] Clinics 2020-04-20 2020-04-20 Outpatient KYLE_A [facility] [id number] 0210 [place] 12:08:00 12:08:00 224 Commun i ty [facility]ospita [facility] Clinics 2020-04-20 2020-04-[address] [facility] [id number] 00:00:00 00:00:00 Emy [id number] 2020-04-20 2020-04-20 Jenise Quevedo [facility] [place] 00:00:00 00:00:00 Dennys Abebe MD: [address] [facility] a [address], COMMUNITY l [address], HOSPITAL Clinic [place], [place] CL[place], [address] KYLE , Ph. 2020-01-13 2020-01-13 Outpatient kyle_magali [facility] 2019 [place] 02:25:00 02:25:00 1118 [facility] Results Test Description Test Time Test Comments Results Result Comments Source SARS-CoV-2 (COVID-19) RNA [Presence] in Respiratory sp ecimen by 2021-08-31 00:15:17 SYED with probe detection Test Item Value Reference Range Interpretation Comme nts SARS-CoV-2 (COVID-19) RNA [Presence] in Respiratory specimen by Not detected SYED with probe detection (test code = 35092-6) Whether patient is employed in a healthcare setting (test code = Un known 43929-2) Whether the patient has symptoms related to condition of interest U nknown (test code = 05164-5) Whether the patient was hospitalized for condition of interest Unkn own (test code = 71430-5) Whether the patient was admitted to intensive care unit (ICU) for U nknown condition of interest (test code = 21295-6) Whether patient resides in a congregate care setting (test code = U nknown 72289-6) status (test code = 87381-6) Unknown Date and time of symptom onset (test code = 04988-0) Unknown [facility] panel - Serum or [id number] 00:00:00 Test Item Value Reference Range Interpretation Comments Glucose [Mass/volume] in Serum 174 mg/dL 65-99 H or Plasma (test code = 2345-7) Urea nitrogen [Mass/volume] in 18 mg/dL 8-27 Serum or Plasma (test code = 3094-0) Creatinine [Mass/volume] in 1.14 mg/dL 0.76-1.27 Serum or Plasma (test code = 2160-0) eGFR (test code = eGFR) 70 mL/min/1.73 >59 Urea nitrogen/Creatinine [Mass 16 10-24 Ratio] in Serum or Plasma (test code = 3097-3) Sodium [Moles/volume] in Serum 135 mmol/L 134-144 or Plasma (test code = 2951-2) Potassium [Moles/volume] in 4.3 mmol/L 3.5-5.2 Serum or Plasma (test code = 2823-3) Chloride [Moles/volume] in 96 mmol/L 96-106 Serum or Plasma (test code = 2075-0) Carbon dioxide, total 24 mmol/L 20-29 [Moles/volume] in Serum or Plasma (test code = 2027-9) Calcium [Mass/volume] in Serum 9.5 mg/dL 8.6-10.2 or Plasma (test code = 73273-2) Protein [Mass/volume] in Serum 6.8 g/dL 6.0-8.5 or Plasma (test code = 2885-2) Albumin [Mass/volume] in Serum 4.7 g/dL 3.8-4.8 or Plasma (test code = 1751-7) Globulin [Mass/volume] in 2.1 g/dL 1.5-4.5 Serum by calculation (test code = 49987-5) Albumin/Globulin [Mass Ratio] 2.2 1.2-2.2 in Serum or Plasma (test code = 1759-0) Bilirubin.total [Mass/volume] 0.3 mg/dL 0.0-1.2 in Serum or Plasma (test code = 1974-2) Alkaline phosphatase 85 IU/L 44-121 [Enzymatic activity/volume] in Serum or Plasma (test code = 6768-6) Aspartate aminotransferase 15 IU/L 0-40 [Enzymatic activity/volume] in Serum or Plasma (test code = 1920-8) Alanine aminotransferase 30 IU/L 0-44 [Enzymatic activity/volume] in Serum or Plasma (test code = 1742-6) [facility] ClinicsLipid 1996 panel - Serum or [id number] 00:00:00 Test Item Value Reference Range Interpretation Comments Cholesterol [Mass/volume] in Serum 199 mg/dL 100-199 or Plasma (test code = 2093-3) Triglyceride [Mass/volume] in Serum 174 mg/dL 0-149 H or Plasma (test code = 2571-8) Cholesterol in HDL [Mass/volume] in 52 mg/dL >39 Serum or Plasma (test code = 2085-9) Cholesterol in VLDL [Mass/volume] 30 mg/dL 5-40 in Serum or Plasma by calculation (test code = 28524-8) Cholesterol in LDL [Mass/volume] in 117 mg/dL 0-99 H Serum or Plasma by calculation (test code = 52915-4) Laboratory comment [Text] in Report loading unit operator seating Narrative (test code = 03371-7) [facility]/Hemoglobin.total in Blood 2021-06-23 00:00:00 Test Item Value Reference Range Interpretation Comments Hemoglobin A1c/Hemoglobin.total in 7.7 % 4.8-5.6 H Blood (test code = 4548-4) [facility] A[facility]/Hemoglobin.total in Blood 2021-03-02 00:00:00 Test Item Value Reference Range Interpretation Comments Hemoglobin A1c/Hemoglobin.total in 6.5 % 4.8-5.6 H Blood (test code = 4548-4) [facility] A[facility]c/Hemoglobin.total in Blood 2021-03-02 00:00:00 Test Item Value Reference Range Interpretation Comments Hemoglobin A1c/Hemoglobin.total in 6.5 % 4.8-5.6 H Blood (test code = 4548-4) [facility] W Auto Differential panel - [id number] 00:00:00 Test Item Value Reference Range Interpretation Comments Leukocytes [#/volume] in Blood 8.7 x10e3/uL 3.4-10.8 by Automated count (test code = 6690-2) Erythrocytes [#/volume] in 5.00 x10e6/uL 4.14-5.80 Blood by Automated count (test code = 789-8) Hemoglobin [Mass/volume] in 15.4 g/dL 13.0-17.7 Blood (test code = 718-7) Hematocrit [Volume Fraction] of 45.5 % 37.5-51.0 Blood by Automated count (test code = 4544-3) Erythrocyte mean corpuscular 91 fL 79-97 volume [Entitic volume] by Automated count (test code = 787-2) Erythrocyte mean corpuscular 30.8 pg 26.6-33.0 hemoglobin [Entitic mass] by Automated count (test code = 785-6) Erythrocyte mean corpuscular 33.8 g/dL 31.5-35.7 hemoglobin concentration [Mass/volume] by Automated count (test code = 786-4) Erythrocyte distribution width 13.0 % 11.6-15.4 [Ratio] by Automated count (test code = 788-0) Platelets [#/volume] in Blood 219 x10e3/uL 150-450 by Automated count (test code = 777-3) Neutrophils/100 leukocytes in 65 % not estab. Blood by Automated count (test code = 770-8) Lymphocytes/100 leukocytes in 21 % not estab. Blood by Automated count (test code = 736-9) Monocytes/100 leukocytes in 7 % not estab. Blood by Automated count (test code = 5905-5) Eosinophils/100 leukocytes in 5 % not estab. Blood by Automated count (test code = 713-8) Basophils/100 leukocytes in 1 % not estab. Blood by Automated count (test code = 706-2) immature cells (test code = loading unit operator seating immature cells) Neutrophils [#/volume] in Blood 5.7 x10e3/uL 1.4-7.0 by Automated count (test code = 751-8) Lymphocytes [#/volume] in Blood 1.8 x10e3/uL 0.7-3.1 by Automated count (test code = 731-0) Monocytes [#/volume] in Blood 0.6 x10e3/uL 0.1-0.9 by Automated count (test code = 742-7) Eosinophils [#/volume] in Blood 0.4 x10e3/uL 0.0-0.4 by Automated count (test code = 711-2) Basophils [#/volume] in Blood 0.1 x10e3/uL 0.0-0.2 by Automated count (test code = 704-7) Immature granulocytes/100 1 % not estab. leukocytes in Blood by Automated count (test code = 05740-9) Immature granulocytes 0.1 x10e3/uL 0.0-0.1 [#/volume] in Blood by Automated count (test code = 60272-0) Nucleated erythrocytes/100 loading unit operator seating leukocytes [Ratio] in Blood by Automated count (test code = 55693-1) Morphology [Interpretation] in loading unit operator seating Blood Narrative (test code = 86418-2) [facility] 2000 panel - Serum or [id number] 00:00:00 Test Item Value Reference Range Interpretation Comments Glucose [Mass/volume] in Serum 156 mg/dL 65-99 H or Plasma (test code = 2345-7) Urea nitrogen [Mass/volume] in 22 mg/dL 8-27 Serum or Plasma (test code = 3094-0) Creatinine [Mass/volume] in 0.96 mg/dL 0.76-1.27 Serum or Plasma (test code = 2160-0) Glomerular filtration 81 mL/min/1.73 >59 rate/1.73 sq M.predicted among non-blacks [Volume Rate/Area] in Serum, Plasma or Blood by Creatinine-based formula (CKD-EPI) (test code = 44122-3) Glomerular filtration 94 mL/min/1.73 >59 rate/1.73 sq M.predicted among blacks [Volume Rate/Area] in Serum, Plasma or Blood by Creatinine-based formula (CKD-EPI) (test code = 30747-1) Urea nitrogen/Creatinine [Mass 23 10-24 Ratio] in Serum or Plasma (test code = 3097-3) Sodium [Moles/volume] in Serum 139 mmol/L 134-144 or Plasma (test code = 2951-2) Potassium [Moles/volume] in 4.4 mmol/L 3.5-5.2 Serum or Plasma (test code = 2823-3) Chloride [Moles/volume] in 100 mmol/L 96-106 Serum or Plasma (test code = 2075-0) Carbon dioxide, total 26 mmol/L 20-29 [Moles/volume] in Serum or Plasma (test code = 8-9) Calcium [Mass/volume] in Serum 9.8 mg/dL 8.6-10.2 or Plasma (test code = 14184-6) Protein [Mass/volume] in Serum 7.2 g/dL 6.0-8.5 or Plasma (test code = 2885-2) Albumin [Mass/volume] in Serum 4.7 g/dL 3.8-4.8 or Plasma (test code = 1751-7) Globulin [Mass/volume] in 2.5 g/dL 1.5-4.5 Serum by calculation (test code = 08084-8) Albumin/Globulin [Mass Ratio] 1.9 1.2-2.2 in Serum or Plasma (test code = 1759-0) Bilirubin.total [Mass/volume] 0.4 mg/dL 0.0-1.2 in Serum or Plasma (test code = 1975-) Alkaline phosphatase 84 IU/L 44-121 [Enzymatic activity/volume] in Serum or Plasma (test code = 6768-6) Aspartate aminotransferase 18 IU/L 0-40 [Enzymatic activity/volume] in Serum or Plasma (test code = 1920-8) Alanine aminotransferase 31 IU/L 0-44 [Enzymatic activity/volume] in Serum or Plasma (test code = 1742-6) [facility]em[facility] A1c/Hemoglobin.total in Blood 2020-12-06 00:00:00 Test Item Value Reference Range Interpretation Comments Hemoglobin A1c/Hemoglobin.total in 6.8 % 4.8-5.6 H Blood (test code = 4548-4) [facility] HospitalUrate [Mass/volume] in Serum or Plasma 2020-12-06 00:00:00 Test Item Value Reference Range Interpretation Comments Urate [Mass/volume] in Serum or 5.7 mg/dL 3.8-8.4 Plasma (test code = 3084-1) [facility]25-Hydroxyvitamin D3+25-Hydroxyvitamin D2 [Mass/volume] in Serum or [id number] 00:00:00 Test Item Value Reference Range Interpretation Comments 25-hydroxyvitamin D3 [Mass/volume] 55 NG/mL in Serum or Plasma (test code = 1988-04) [facility]25-Hydroxyvitamin D3+25-Hydroxyvitamin D2 [Mass/volume] in Serum or [id number] 00:00:00 Test Item Value Reference Range Interpretation Comments 25-hydroxyvitamin D3 [Mass/volume] 55 NG/mL in Serum or Plasma (test code = 1988-04) [facility] W Auto Differential panel - [id number] 00:00:00 Test Item Value Reference Range Interpretation Comments Leukocytes [#/volume] in Blood 8.7 x10e3/uL 3.4-10.8 by Automated count (test code = 6690-2) Erythrocytes [#/volume] in 4.92 x10e6/uL 4.14-5.80 Blood by Automated count (test code = 789-8) Hemoglobin [Mass/volume] in 15.3 g/dL 13.0-17.7 Blood (test code = 718-7) Hematocrit [Volume Fraction] of 45.2 % 37.5-51.0 Blood by Automated count (test code = 4544-3) Erythrocyte mean corpuscular 92 fL 79-97 volume [Entitic volume] by Automated count (test code = 787-2) Erythrocyte mean corpuscular 31.1 pg 26.6-33.0 hemoglobin [Entitic mass] by Automated count (test code = 785-6) Erythrocyte mean corpuscular 33.8 g/dL 31.5-35.7 hemoglobin concentration [Mass/volume] by Automated count (test code = 786-4) Erythrocyte distribution width 13.3 % 11.6-15.4 [Ratio] by Automated count (test code = 788-0) Platelets [#/volume] in Blood 208 x10e3/uL 150-450 by Automated count (test code = 777-3) Neutrophils/100 leukocytes in 68 % not estab. Blood by Automated count (test code = 770-8) Lymphocytes/100 leukocytes in 21 % not estab. Blood by Automated count (test code = 736-9) Monocytes/100 leukocytes in 6 % not estab. Blood by Automated count (test code = 5905-5) Eosinophils/100 leukocytes in 3 % not estab. Blood by Automated count (test code = 713-8) Basophils/100 leukocytes in 1 % not estab. Blood by Automated count (test code = 706-2) immature cells (test code = loading unit operator seating immature cells) Neutrophils [#/volume] in Blood 5.9 x10e3/uL 1.4-7.0 by Automated count (test code = 751-8) Lymphocytes [#/volume] in Blood 1.9 x10e3/uL 0.7-3.1 by Automated count (test code = 731-0) Monocytes [#/volume] in Blood 0.6 x10e3/uL 0.1-0.9 by Automated count (test code = 742-7) Eosinophils [#/volume] in Blood 0.2 x10e3/uL 0.0-0.4 by Automated count (test code = 711-2) Basophils [#/volume] in Blood 0.1 x10e3/uL 0.0-0.2 by Automated count (test code = 704-7) Immature granulocytes/100 1 % not estab. leukocytes in Blood by Automated count (test code = 89898-8) Immature granulocytes 0.1 x10e3/uL 0.0-0.1 [#/volume] in Blood by Automated count (test code = 46661-6) Nucleated erythrocytes/100 loading unit operator seating leukocytes [Ratio] in Blood by Automated count (test code = 86314-8) Morphology [Interpretation] in loading unit operator seating Blood Narrative (test code = 24498-6) [facility] 2000 panel - Serum or [id number] 00:00:00 Test Item Value Reference Range Interpretation Comments Glucose [Mass/volume] in Serum 139 mg/dL 65-99 H or Plasma (test code = 2345-7) Urea nitrogen [Mass/volume] in 24 mg/dL 8-27 Serum or Plasma (test code = 3094-0) Creatinine [Mass/volume] in 1.02 mg/dL 0.76-1.27 Serum or Plasma (test code = 2160-0) Glomerular filtration 75 mL/min/1.73 >59 rate/1.73 sq M.predicted among non-blacks [Volume Rate/Area] in Serum, Plasma or Blood by Creatinine-based formula (CKD-EPI) (test code = 08801-9) Glomerular filtration 87 mL/min/1.73 >59 rate/1.73 sq M.predicted among blacks [Volume Rate/Area] in Serum, Plasma or Blood by Creatinine-based formula (CKD-EPI) (test code = 77064-5) Urea nitrogen/Creatinine [Mass 24 10-24 Ratio] in Serum or Plasma (test code = 3097-3) Sodium [Moles/volume] in Serum 139 mmol/L 134-144 or Plasma (test code = 2951-2) Potassium [Moles/volume] in 4.1 mmol/L 3.5-5.2 Serum or Plasma (test code = 2823-3) Chloride [Moles/volume] in 100 mmol/L 96-106 Serum or Plasma (test code = 2074-0) Carbon dioxide, total 26 mmol/L 20-29 [Moles/volume] in Serum or Plasma (test code = 2027-) Calcium [Mass/volume] in Serum 9.5 mg/dL 8.6-10.2 or Plasma (test code = 24157-9) Protein [Mass/volume] in Serum 7.2 g/dL 6.0-8.5 or Plasma (test code = 2885-2) Albumin [Mass/volume] in Serum 4.7 g/dL 3.8-4.8 or Plasma (test code = 1751-7) Globulin [Mass/volume] in 2.5 g/dL 1.5-4.5 Serum by calculation (test code = 27207-0) Albumin/Globulin [Mass Ratio] 1.9 1.2-2.2 in Serum or Plasma (test code = 1759-0) Bilirubin.total [Mass/volume] 0.4 mg/dL 0.0-1.2 in Serum or Plasma (test code = 1974-2) Alkaline phosphatase 73 IU/L 48-121 [Enzymatic activity/volume] in Serum or Plasma (test code = 6768-6) Aspartate aminotransferase 22 IU/L 0-40 [Enzymatic activity/volume] in Serum or Plasma (test code = 1920-8) Alanine aminotransferase 30 IU/L 0-44 [Enzymatic activity/volume] in Serum or Plasma (test code = 1742-6) [facility] Clinics[facility]inal[facility] complete W Reflex Culture panel - [id number] 00:00:00 Test Item Value Reference Range Interpretation Comments Specific gravity of Urine (test 1.016 1.005-1.030 code = 2965-2) pH of Urine by Test strip (test 7.0 5.0-7.5 code = 5803-2) Color of Urine (test code = yellow yellow 5778-6) Appearance of Urine (test code = clear clear 5767-9) Leukocyte esterase [Presence] in negative negative Urine by Test strip (test code = 5799-2) Protein [Presence] in Urine by negative negative/trace Test strip (test code = 49333-9) Glucose [Presence] in Urine (test negative negative code = 1539-9) Ketones [Presence] in Urine by negative negative Test strip (test code = 2514-8) Hemoglobin [Presence] in Urine by negative negative Test strip (test code = 5794-3) Bilirubin.total [Presence] in negative negative Urine by Test strip (test code = 5770-3) Urobilinogen [Mass/volume] in 0.2 mg/dL 0.2-1.0 Urine by Test strip (test code = 97366-0) Nitrite [Presence] in Urine by negative negative Test strip (test code = 5802-4) Microscopic observation see below: [Identifier] in Urine sediment by Light microscopy (test code = 42654-9) Leukocytes [#/area] in Urine none seen 0-5 sediment by Microscopy high power field (test code = 5821-4) Erythrocytes [#/area] in Urine none seen 0-2 sediment by Microscopy high power field (test code = 91117-9) Epithelial cells [#/area] in Urine none seen 0-10 sediment by Microscopy high power field (test code = 5787-7) Epithelial cells.renal [#/area] in loading unit operator seating Urine sediment by Microscopy high power field (test code = 38648-7) Casts [Presence] in Urine sediment none seen none seen by Light microscopy (test code = 47484-7) Casts [Type] in Urine sediment by loading unit operator seating Light microscopy (test code = 73947-0) Unidentified crystals [Presence] loading unit operator seating in Urine sediment by Light microscopy (test code = 5783-6) Crystals [type] in Urine sediment loading unit operator seating by Light microscopy (test code = 5782-8) Mucus [Presence] in Urine sediment loading unit operator seating by Light microscopy (test code = 8247-9) Bacteria [#/area] in Urine none seen none seen/few sediment by Microscopy high power field (test code = 5769-5) Yeast [#/area] in Urine sediment loading unit operator seating by Microscopy high power field (test code = 5822-2) Trichomonas vaginalis [Presence] loading unit operator seating in Urine sediment by Light microscopy (test code = 5813-1) Urine sediment comments by Light loading unit operator seating microscopy Narrative (test code = 03310-1) urinalysis reflex (test code = comment urinalysis reflex) [facility] - Serum or [id number] 00:00:00 Test Item Value Reference Range Interpretation Comments Cholesterol [Mass/volume] in Serum 195 mg/dL 100-199 or Plasma (test code = 2093-3) Triglyceride [Mass/volume] in Serum 166 mg/dL 0-149 H or Plasma (test code = 2571-8) Cholesterol in HDL [Mass/volume] in 56 mg/dL >39 Serum or Plasma (test code = 2085-9) Cholesterol in VLDL [Mass/volume] 29 mg/dL 5-40 in Serum or Plasma by calculation (test code = 10416-9) Cholesterol in LDL [Mass/volume] in 110 mg/dL 0-99 H Serum or Plasma by calculation (test code = 66104-0) Laboratory comment [Text] in Report loading unit operator seating Narrative (test code = 29685-7) [facility] HospitalHemoglobin A1c/Hemoglobin.total in Blood 2020-10-07 00:00:00 Test Item Value Reference Range Interpretation Comments Hemoglobin A1c/Hemoglobin.total in 6.4 % 4.8-5.6 H Blood (test code = 4548-4) Glucose mean value [Mass/volume] in 137 mg/dL Blood Estimated from glycated hemoglobin (test code = 02994-2) [facility] Hospitalthyroid panel, [id number] 00:00:00 Test Item Value Reference Range Interpretation Comments Thyrotropin [Units/volume] in 2.450 uIU/mL 0.450-4.500 Serum or Plasma by Detection limit <= 0.005 mIU/L (test code = 09107-7) Thyroxine (T4) [Mass/volume] in 8.3 ug/dL 4.5-12.0 Serum or Plasma (test code = 3026-2) [facility] HospitalFolate+Cyanocobalamin [Interpretation] in Serum or [id number] 00:00:00 Test Item Value Reference Range Interpretation Comments Cobalamin (Vitamin B12) 494 pg/mL 232-1245 [Mass/volume] in Serum or Plasma (test code = 2132-9) Folate [Mass/volume] in Serum or >20.0 >3.0 Plasma (test code = 2284-8) [facility] HospitalMicroalbumin [Mass/volume] in [id number] 00:00:00 Test Item Value Reference Range Interpretation Comments Microalbumin [Mass/volume] in Urine <3.0 not estab. (test code = 07104-5) [facility] HospitalProstate specific Ag [Mass/volume] in Serum or [id number] 00:00:00 Test Item Value Reference Range Interpretation Comments Prostate specific Ag [Mass/volume] 1.8 NG/mL 0.0-4.0 in Serum or Plasma (test code = 2857-1) [facility] HospitalUrate [Mass/volume] in Serum or Plasma 2020-10-07 00:00:00 Test Item Value Reference Range Interpretation Comments Urate [Mass/volume] in Serum or 8.9 mg/dL 3.8-8.4 H Plasma (test code = 3084-1) [facility] W Auto Differential panel - [id number] 00:00:00 Test Item Value Reference Range Interpretation Comments Leukocytes [#/volume] in Blood 8.7 x10e3/uL 3.4-10.8 by Automated count (test code = 6690-2) Erythrocytes [#/volume] in 4.92 x10e6/uL 4.14-5.80 Blood by Automated count (test code = 789-8) Hemoglobin [Mass/volume] in 15.3 g/dL 13.0-17.7 Blood (test code = 718-7) Hematocrit [Volume Fraction] of 45.2 % 37.5-51.0 Blood by Automated count (test code = 4544-3) Erythrocyte mean corpuscular 92 fL 79-97 volume [Entitic volume] by Automated count (test code = 787-2) Erythrocyte mean corpuscular 31.1 pg 26.6-33.0 hemoglobin [Entitic mass] by Automated count (test code = 785-6) Erythrocyte mean corpuscular 33.8 g/dL 31.5-35.7 hemoglobin concentration [Mass/volume] by Automated count (test code = 786-4) Erythrocyte distribution width 13.3 % 11.6-15.4 [Ratio] by Automated count (test code = 788-0) Platelets [#/volume] in Blood 208 x10e3/uL 150-450 by Automated count (test code = 777-3) Neutrophils/100 leukocytes in 68 % not estab. Blood by Automated count (test code = 770-8) Lymphocytes/100 leukocytes in 21 % not estab. Blood by Automated count (test code = 736-9) Monocytes/100 leukocytes in 6 % not estab. Blood by Automated count (test code = 5905-5) Eosinophils/100 leukocytes in 3 % not estab. Blood by Automated count (test code = 713-8) Basophils/100 leukocytes in 1 % not estab. Blood by Automated count (test code = 706-2) immature cells (test code = loading unit operator seating immature cells) Neutrophils [#/volume] in Blood 5.9 x10e3/uL 1.4-7.0 by Automated count (test code = 751-8) Lymphocytes [#/volume] in Blood 1.9 x10e3/uL 0.7-3.1 by Automated count (test code = 731-0) Monocytes [#/volume] in Blood 0.6 x10e3/uL 0.1-0.9 by Automated count (test code = 742-7) Eosinophils [#/volume] in Blood 0.2 x10e3/uL 0.0-0.4 by Automated count (test code = 711-2) Basophils [#/volume] in Blood 0.1 x10e3/uL 0.0-0.2 by Automated count (test code = 704-7) Immature granulocytes/100 1 % not estab. leukocytes in Blood by Automated count (test code = 87119-7) Immature granulocytes 0.1 x10e3/uL 0.0-0.1 [#/volume] in Blood by Automated count (test code = 89006-8) Nucleated erythrocytes/100 loading unit operator seating leukocytes [Ratio] in Blood by Automated count (test code = 48608-1) Morphology [Interpretation] in loading unit operator seating Blood Narrative (test code = 88793-4) [facility] HospitalComprehensive metabolic 2000 panel - Serum or [id number] 00:00:00 Test Item Value Reference Range Interpretation Comments Glucose [Mass/volume] in Serum 139 mg/dL 65-99 H or Plasma (test code = 2345-7) Urea nitrogen [Mass/volume] in 24 mg/dL 8-27 Serum or Plasma (test code = 3094-0) Creatinine [Mass/volume] in 1.02 mg/dL 0.76-1.27 Serum or Plasma (test code = 2160-0) Glomerular filtration 75 mL/min/1.73 >59 rate/1.73 sq M.predicted among non-blacks [Volume Rate/Area] in Serum, Plasma or Blood by Creatinine-based formula (CKD-EPI) (test code = 76734-2) Glomerular filtration 87 mL/min/1.73 >59 rate/1.73 sq M.predicted among blacks [Volume Rate/Area] in Serum, Plasma or Blood by Creatinine-based formula (CKD-EPI) (test code = 67238-1) Urea nitrogen/Creatinine [Mass 24 10-24 Ratio] in Serum or Plasma (test code = 3097-3) Sodium [Moles/volume] in Serum 139 mmol/L 134-144 or Plasma (test code = 2951-2) Potassium [Moles/volume] in 4.1 mmol/L 3.5-5.2 Serum or Plasma (test code = 2823-3) Chloride [Moles/volume] in 100 mmol/L 96-106 Serum or Plasma (test code = 2075-0) Carbon dioxide, total 26 mmol/L 20-29 [Moles/volume] in Serum or Plasma (test code = 2027-9) Calcium [Mass/volume] in Serum 9.5 mg/dL 8.6-10.2 or Plasma (test code = 46235-6) Protein [Mass/volume] in Serum 7.2 g/dL 6.0-8.5 or Plasma (test code = 2885-2) Albumin [Mass/volume] in Serum 4.7 g/dL 3.8-4.8 or Plasma (test code = 1751-7) Globulin [Mass/volume] in 2.5 g/dL 1.5-4.5 Serum by calculation (test code = 62046-0) Albumin/Globulin [Mass Ratio] 1.9 1.2-2.2 in Serum or Plasma (test code = 1759-0) Bilirubin.total [Mass/volume] 0.4 mg/dL 0.0-1.2 in Serum or Plasma (test code = 1974-) Alkaline phosphatase 73 IU/L 48-121 [Enzymatic activity/volume] in Serum or Plasma (test code = 6768-6) Aspartate aminotransferase 22 IU/L 0-40 [Enzymatic activity/volume] in Serum or Plasma (test code = 1920-8) Alanine aminotransferase 30 IU/L 0-44 [Enzymatic activity/volume] in Serum or Plasma (test code = 1742-6) [facility] ClinicsUrinalysis complete W Reflex Culture panel - [id number] 00:00:00 Test Item Value Reference Range Interpretation Comments Specific gravity of Urine (test 1.016 1.005-1.030 code = 2965-2) pH of Urine by Test strip (test 7.0 5.0-7.5 code = 5803-2) Color of Urine (test code = yellow yellow 5778-6) Appearance of Urine (test code = clear clear 5767-9) Leukocyte esterase [Presence] in negative negative Urine by Test strip (test code = 5799-2) Protein [Presence] in Urine by negative negative/trace Test strip (test code = 01381-6) Glucose [Presence] in Urine (test negative negative code = 2349-9) Ketones [Presence] in Urine by negative negative Test strip (test code = 2514-8) Hemoglobin [Presence] in Urine by negative negative Test strip (test code = 5794-3) Bilirubin.total [Presence] in negative negative Urine by Test strip (test code = 5770-3) Urobilinogen [Mass/volume] in 0.2 mg/dL 0.2-1.0 Urine by Test strip (test code = 35135-6) Nitrite [Presence] in Urine by negative negative Test strip (test code = 5802-4) Microscopic observation see below: [Identifier] in Urine sediment by Light microscopy (test code = 22515-3) Leukocytes [#/area] in Urine none seen 0-5 sediment by Microscopy high power field (test code = 5821-4) Erythrocytes [#/area] in Urine none seen 0-2 sediment by Microscopy high power field (test code = 60315-8) Epithelial cells [#/area] in Urine none seen 0-10 sediment by Microscopy high power field (test code = 5787-7) Epithelial cells.renal [#/area] in loading unit operator seating Urine sediment by Microscopy high power field (test code = 85952-4) Casts [Presence] in Urine sediment none seen none seen by Light microscopy (test code = 01836-4) Casts [Type] in Urine sediment by loading unit operator seating Light microscopy (test code = 63927-3) Unidentified crystals [Presence] loading unit operator seating in Urine sediment by Light microscopy (test code = 5783-6) Crystals [type] in Urine sediment loading unit operator seating by Light microscopy (test code = 5782-8) Mucus [Presence] in Urine sediment loading unit operator seating by Light microscopy (test code = 8247-9) Bacteria [#/area] in Urine none seen none seen/few sediment by Microscopy high power field (test code = 5769-5) Yeast [#/area] in Urine sediment loading unit operator seating by Microscopy high power field (test code = 5822-2) Trichomonas vaginalis [Presence] loading unit operator seating in Urine sediment by Light microscopy (test code = 5813-1) Urine sediment comments by Light loading unit operator seating microscopy Narrative (test code = 40546-1) urinalysis reflex (test code = comment urinalysis reflex) [facility] HospitalLipid 1996 panel - Serum or [id number] 00:00:00 Test Item Value Reference Range Interpretation Comments Cholesterol [Mass/volume] in Serum 195 mg/dL 100-199 or Plasma (test code = 2093-3) Triglyceride [Mass/volume] in Serum 166 mg/dL 0-149 H or Plasma (test code = 2571-8) Cholesterol in HDL [Mass/volume] in 56 mg/dL >39 Serum or Plasma (test code = 2085-9) Cholesterol in VLDL [Mass/volume] 29 mg/dL 5-40 in Serum or Plasma by calculation (test code = 93712-4) Cholesterol in LDL [Mass/volume] in 110 mg/dL 0-99 H Serum or Plasma by calculation (test code = 11391-7) Laboratory comment [Text] in Report loading unit operator seating Narrative (test code = 95694-2) [facility] HospitalHemoglobin A1c/Hemoglobin.total in Blood 2020-10-07 00:00:00 Test Item Value Reference Range Interpretation Comments Hemoglobin A1c/Hemoglobin.total in 6.4 % 4.8-5.6 H Blood (test code = 4548-4) Glucose mean value [Mass/volume] in 137 mg/dL Blood Estimated from glycated hemoglobin (test code = 58493-2) [facility] HospitalTSH + T4, [id number] 00:00:00 Test Item Value Reference Range Interpretation Comments Thyrotropin [Units/volume] in 2.450 uIU/mL 0.450-4.500 Serum or Plasma by Detection limit <= 0.005 mIU/L (test code = 35172-6) Thyroxine (T4) [Mass/volume] in 8.3 ug/dL 4.5-12.0 Serum or Plasma (test code = 3026-2) [facility] HospitalFolate+Cyanocobalamin [Interpretation] in Serum or [id number] 00:00:00 Test Item Value Reference Range Interpretation Comments Cobalamin (Vitamin B12) 494 pg/mL 232-1245 [Mass/volume] in Serum or Plasma (test code = 2132-9) Folate [Mass/volume] in Serum or >20.0 >3.0 Plasma (test code = 2284-8) [facility] HospitalMicroalbumin [Mass/volume] in [id number] 00:00:00 Test Item Value Reference Range Interpretation Comments Microalbumin [Mass/volume] in Urine <3.0 not estab. (test code = 50325-3) [facility] HospitalPSA, serum or [id number] 00:00:00 Test Item Value Reference Range Interpretation Comments Prostate specific Ag [Mass/volume] 1.8 NG/mL 0.0-4.0 in Serum or Plasma (test code = 2857-1) [facility] HospitalUrate [Mass/volume] in Serum or Plasma 2020-10-07 00:00:00 Test Item Value Reference Range Interpretation Comments Urate [Mass/volume] in Serum or 8.9 mg/dL 3.8-8.4 H Plasma (test code = 3084-1) [facility]
--- NOTE | 2022-10-25 12:49 | RAD REPORT ---
EXAM DESCRIPTION: CT - Head Brain Wo Cont - 10/25/2022 12:37 pm CLINICAL HISTORY: seizure like activity COMPARISON: No comparisons TECHNIQUE: Noncontrast head CT images were obtained without IV contrast. Multiplanar reformats were generated and reviewed. All CT scans are performed using dose optimization technique as appropriate and may include automated exposure control or mA/KV adjustment according to patient size. FINDINGS: No intracranial hemorrhage, mass, or edema. Midline structures are unremarkable. Normal ventricular caliber for age. Prieto-white matter differentiation is preserved, without evidence of acute infarct. No abnormal extra- axial fluid collections. Mastoid air cells and visualized portions of the paranasal sinuses are clear. No acute bony findings. IMPRESSION: No evidence of an acute intracranial process.
[2022-10-25 13:26] LABS: Absolute Lymphocytes (CBC) 1.7 K/uL (0.7-4.9); Hematocrit 41.4 % (39.6-49.0); Lymphocytes % 16.2 % (15.3-44.8); MCV 93.3 fL (80-100); MPV 8.3 fL (7.6-11.3); Platelets 208 thou/uL (152-406); RBC Red Blood Cell Count 4.44 M/uL (4.33-5.43)
--- NOTE | 2022-10-25 13:44 | RAD REPORT ---
EXAM DESCRIPTION: MRI - Brain Wo Cont - 10/25/2022 12:58 pm CLINICAL HISTORY: seizure activity COMPARISON: Noncontrast head CT of the same day TECHNIQUE: Multiplanar multisequence MRI of the brain performed without IV contrast. FINDINGS: No evidence of acute infarct or other diffusion signal abnormality. No evidence of acute intracranial hemorrhage or abnormal extra-axial fluid collections. Mild diffuse parenchymal volume loss. Ventricular caliber otherwise within normal for age. Midline st ructures are unremarkable. No white matter signal abnormalities. No mass effect or midline shift. Major vascular flow voids are preserved. Mastoid air cells and paranasal sinuses are clear. IMPRESSION: No acute intracranial process. No evidence of ventriculomegaly or mass effect.
[2022-10-25 13:52] LABS: Magnesium 2.5 mg/dL (1.6-2.4); Potassium 3.7 mEq/L (3.5-5.1); Troponin High Sensitivity 8.4 pg/mL (<58.9)
[2022-10-25] MEDS ORDERED: NA CHLORIDE 0.9% 1,000 ML ONE (14:01)
[2022-10-25 14:27] LABS: Protime INR 1.03
--- NOTE | 2022-10-25 14:39 | EDPHYS ---
Physician Documentation [facility] Name: Armando Mariee Age: 72 yrs Sex: Male : 1950 Arrival Date: 10/25/2022 Time: 11:56 Bed 14 Private MD: ED Physician Miguel Angel Ordoñez HPI: 10/25 12:23 This 72 yrs old Male presents to ER via Stretcher with complaints of Seizure activity. rn 12:23 The patient presents after having a possible seizure episode. Seizure onset: just prior rn to arrival. Associated injury: The patient did not suffer any apparent associated injury. Current symptoms: Currently, the patient is not experiencing any symptoms. The patient has not experienced similar symptoms in the past. Patient was brought over from operating room, was given propofol for EGD, then was noted to have muscular contraction and tonic activity that was brief in length. Now completely back to normal. Patient states has had procedures with anesthesia before without problems. Denies headache. states for the last few months has been increasing forgetfulness but no focal neurological complaints. Denies medication change. No blood in the stool. Also seen by cardiology recently and told everything looked okay including a medical clearance evaluation 1 year ago for back surgery. Patient has never had seizure and denies previous stroke or brain problems.. Historical: - Allergies: 12:08 No Known Allergies; db - Immunization history:: Adult Immunizations unknown. - Social history:: Smoking status: Patient denies any tobacco usage or history of. - Family history:: not pertinent. - Hospitalizations: : No recent hospitalization is reported. ROS: 12:23 Constitutional: Negative for fever, chills, and weight loss, Eyes: Negative for injury, rn pain, redness, and discharge, Neck: Negative for injury, pain, and swelling, Cardiovascular: Negative for chest pain, palpitations, and edema, Respiratory: Negative for shortness of breath, cough, wheezing, and pleuritic chest pain, Abdomen/GI: Negative for abdominal pain, nausea, vomiting, diarrhea, and constipation, Back: Negative for injury and pain, MS/Extremity: Negative for injury and deformity, Skin: Negative for injury, rash, and discoloration, Neuro: Negative for headache, weakness, numbness, tingling Exam: 12:23 Constitutional: This is a well developed, well nourished patient who is awake, alert, rn and in no acute distress. Head/Face: Normocephalic, atraumatic. Eyes: Pupils equal round and reactive to light, extra-ocular motions intact. Lids and lashes normal. Conjunctiva and sclera are non-icteric and not injected. Cornea within normal limits. Periorbital areas with no swelling, redness, or edema. ENT: Dry mucous membranes Neck: Trachea midline, no thyromegaly or masses palpated, and no cervical lymphadenopathy. Supple, full range of motion without nuchal rigidity, or vertebral point tenderness. No Meningismus. Cardiovascular: Regular rate and rhythm. No pulse deficits. Respiratory: No increased work of breathing, no retractions or nasal flaring. Abdomen/GI: Soft, nontender, nondistended Skin: Warm, dry MS/ Extremity: Pulses equal, no cyanosis. Neurovascular intact. Full, normal range of motion. Equal circumference. Neuro: Awake and alert, GCS 15, oriented to person, place, time, and situation. Cranial nerves II-XII grossly intact. Motor strength 5/5 in all extremities. Sensory grossly intact. Cerebellar exam normal. 14:29 ECG was reviewed by the Attending Physician. rn Vital Signs: 12:00 BP 133 / 80; Pulse 67; Resp 18; Temp 97.8; Pulse Ox 98% on R/A; db 14:22 BP 132 / 69; Pulse 60; Resp 16; Pulse Ox 98% on R/A; db 15:00 BP 114 / 75; Pulse 58; Resp 16; Pulse Ox 98% on R/A; db MDM: 12:04 Patient medically screened. rn 14:36 Differential diagnosis: cerebral vascular accident, cardiac arrhythmia, seizure. Data rn reviewed: vital signs, nurses notes, lab test result(s), EKG, radiologic studies, CT scan, MRI, and as a result, I will discharge patient. Management of patient was discussed with the following: Senior Principal Software Engineer: Dr. Castano, request the patient call his office to reschedule procedure and follow-up with PCP for medical clearance. Independent interpretation of the following test(s) in the Emergency Department CT Scan: My interpretation is CT head images negative for acute bleeding or swelling per my interpretation. Counseling: I had a detailed discussion with the patient and/or guardian regarding the historical points, exam findings, and any diagnostic results supporting the discharge/admit diagnosis, lab results, radiology results, the need for outpatient follow up, to return to the emergency department if symptoms worsen or persist or if there are any questions or concerns that arise at home. Response to treatment: the patient's symptoms have resolved after treatment, the patient's condition has returned to base line, the patient is now symptom free, and as a result, I will discharge patient. Special discussion: I discussed with the patient/guardian in detail that at this point there is no indication for admission to the hospital. It is understood, however, that if the symptoms persist or worsen the patient needs to return immediately for re-evaluation. ED course: No acute findings on CT head or MRI brain. EKG without ischemia. Troponin negative. Electrolytes within range. Most likely adverse reaction to anesthesia, but will have follow-up with PCP for further medical clearance.. 10/25 12:13 Order name: CBC with Diff; Complete Time: 13:48 rn 10/25 12:13 Order name: Basic Metabolic Panel; Complete Time: 14:18 rn 10/25 12:13 Order name: Protime (+inr); Complete Time: 14:27 rn 10/25 12:13 Order name: Ptt, Activated; Complete Time: 14:27 rn 10/25 12:13 Order name: Magnesium; Complete Time: 14:18 rn 10/25 12:13 Order name: Troponin High Sensitivity; Complete Time: 14:18 rn 10/25 12:13 Order name: CT Head Brain wo Cont; Complete Time: 13:48 rn 10/25 12:22 Order name: Brain Wo Cont MRI; Complete Time: 13:48 rn 10/25 12:13 Order name: EKG; Complete Time: 12:14 10/25 12:13 Order name: IV Start; Complete Time: 14:55 rn 10/25 12:13 Order name: EKG - Nurse/Tech; Complete Time: 14:36 rn 10/25 12:13 Order name: Cardiac monitoring; Complete Time: 13:58 rn 10/25 12:13 Order name: O2 Sat Monitoring; Complete Time: 13:58 rn 10/25 12:14 Order name: Glucose Level; Complete Time: 13:58 rn EC:29 Rate is 58 beats/min. Rhythm is regular. QRS [place] is Normal. [place] interval is normal. QRS rn interval is normal. QT interval is normal. No Q waves. T waves are Normal. No ST changes noted. Clinical impression: Sinus bradycardia. Interpreted by me. Reviewed by me. Administered Medications: 13:58 Drug: NS 0.9% IV 1000 ml Route: IV; Rate: 1000 ml; Site: left hand; db 15:15 Follow up: Response: No adverse reaction; IV Status: Completed infusion; IV Intake: db 1000ml Disposition Summary: 10/25/22 14:39 Discharge Ordered Location: Home rn Problem: new rn Symptoms: have improved rn Condition: Stable rn Diagnosis - Other seizures - adverse reaction to anesthesia rn Followup: rn - With: Private Physician - When: As needed - Reason: Recheck today's complaints, Re-evaluation by your physician Discharge Instructions: - Discharge Summary Sheet rn - Seizure, Adult rn - General Anesthesia, Adult rn - Risks and Benefits of General Anesthesia rn Forms: - Medication Reconciliation Form rn - Thank You Letter rn - Antibiotic learning support assistant - Prescription Opioid Use rn - Patient Portal Instructions rn - Leadership Thank You Letter rn Signatures: Dispatcher [employer] Miguel Angel Hartman MD MD rn Benton, Danielle, RN RN db
--- NOTE | 2022-10-25 14:39 | ER ---
Nurse's Notes [facility] Name: Armando Mariee Age: 72 yrs Sex: Male : 1950 Arrival Date: 10/25/2022 Time: 11:56 Bed 14 Private MD: Diagnosis: Other seizures-adverse reaction to anesthesia Presentation: 10/25 12:00 Chief complaint: Patient states: PATIENT FROM DAY SURGERY. BROUGHT OVER AFTER RECEIVING db PROPOFOL HAD SEIZURE LIKE ACTIVITY. PATIENT GIVEN VERSED 2MG AND PER STAFF SEIZURE LIKE ACTIVITY LAST LESS THAN 5 MIN. PATIENT NOW IS AOX4 NAD. PATIENT WAS PLANNED TO HAVE EGD AND COLONOSCOPY TODAY. Coronavirus screen: Client denies travel out of the [place] in the last 14 days. At this time, the client does not indicate any symptoms associated with coronavirus-19. Ebola Screen: Patient negative for fever greater than or equal to 101.5 degrees Fahrenheit, and additional compatible Ebola Virus Disease symptoms Patient denies exposure to infectious person. Patient denies travel to an Ebola-affected area in the 21 days before illness onset. No symptoms or risks identified at this time. Initial Sepsis Screen: Does the patient meet any 2 criteria? No. Patient's initial sepsis screen is negative. Does the patient have a suspected source of infection? No. Patient's initial sepsis screen is negative. Risk Assessment: Do you want to hurt yourself or someone else? Patient reports no desire to harm self or others. Onset of symptoms was October 25, 2022. 12:00 Method Of Arrival: Stretcher db 12:00 Acuity: DONOVAN 2 db Triage Assessment: 12:08 General: Appears in no apparent distress. comfortable, Behavior is calm, cooperative. db Pain: Denies pain. Neuro: Level of Consciousness is awake, alert, obeys commands, Oriented to person, place, time, situation. Respiratory: Airway is patent Respiratory effort is even, unlabored, Respiratory pattern is regular, symmetrical. Historical: - Allergies: 12:08 No Known Allergies; db - Immunization history:: Adult Immunizations unknown. - Social history:: Smoking status: Patient denies any tobacco usage or history of. - Family history:: not pertinent. - Hospitalizations: : No recent hospitalization is reported. Screenin:10 [facility] ED Fall Risk Assessment (Adult) History of falling in the last 3 months, db including since admission No falls in past 3 months (0 pts) Confusion or Disorientation No (0 pts) Intoxicated or Sedated No (0 pts) Impaired Gait No (0 pts) Mobility Assist Device Used No (0 pt) Altered Elimination No (0 pt) Score/Fall Risk Level 0 - 2 = Low Risk Oriented to surroundings, Maintained a safe environment. Abuse screen: Denies threats or abuse. Denies injuries from another. Nutritional screening: No deficits noted. Tuberculosis screening: No symptoms or risk factors identified. Assessment: 12:10 Reassessment: Patient appears in no apparent distress at this time. Patient and/or db family updated on plan of care and expected duration. Pain level reassessed. Patient is alert, oriented x 3, equal unlabored respirations, skin warm/dry/pink. 13:04 Reassessment: patient returned to room from MRI. db 13:30 Reassessment: Patient appears in no apparent distress at this time. Patient and/or db family updated on plan of care and expected duration. Pain level reassessed. Patient is alert, oriented x 3, equal unlabored respirations, skin warm/dry/pink. Patient states feeling better. Patient states symptoms have improved. Neuro: Level of Consciousness is awake, alert, obeys commands, Oriented to person, place, time, situation. Respiratory: Airway is patent Respiratory effort is even, unlabored, Respiratory pattern is regular, symmetrical. 14:44 Reassessment: dc pending iv fluids finish. db Vital Signs: 12:00 BP 133 / 80; Pulse 67; Resp 18; Temp 97.8; Pulse Ox 98% on R/A; db 14:22 BP 132 / 69; Pulse 60; Resp 16; Pulse Ox 98% on R/A; db 15:00 BP 114 / 75; Pulse 58; Resp 16; Pulse Ox 98% on R/A; db ED Course: 12:00 Patient arrived in ED. [email or web address] 12:04 Miguel Angel Ordoñez MD is Attending Physician. rn 12:05 Kristen Cortez, SIRISHA is Primary Nurse. db 12:07 Triage completed. db 12:08 Arm band placed on Patient placed in an exam room. db 12:41 CT Head Brain wo Cont In Process Unspecified. EDMS 12:57 Brain Wo Cont MRI In Process Unspecified. EDMS 13:30 Client placed on continuous cardiac and pulse oximetry monitoring. NIBP monitoring db applied. Warm blanket given. 15:14 Patient has correct armband on for positive identification. Bed in low position. Call db light in reach. Side rails up X 1. Provided Education on: discharge. 15:14 No provider procedures requiring assistance completed. IV discontinued, intact, db bleeding controlled, No redness/swelling at site. Administered Medications: 13:58 Drug: NS 0.9% IV 1000 ml Route: IV; Rate: 1000 ml; Site: left hand; db 15:15 Follow up: Response: No adverse reaction; IV Status: Completed infusion; IV Intake: db 1000ml Medication: 13:30 VIS not applicable for this client. db Intake: 15:15 IV: 1000ml; Total: 1000ml. db Outcome: 14:39 Discharge ordered by . rn 15:14 Discharged to home ambulatory, with family. db 15:14 Condition: stable 15:14 Discharge instructions given to patient, family, Instructed on discharge instructions, follow up and referral plans. 15:15 Patient left the ED. db Signatures: Dispatcher [employer] Miguel Angel Hartman MD MD rn Jackson, Kandis [email or web address] Kristen Cortez RN RN db
[2022-10-25 16:07] VITALS: TEMP 97.8; O2SAT 98
[2022-10-25 16:09] VITALS: BP 114/75
--- NOTE | 2022-10-26 15:23 | EKG ---
Test Date: 2022-10-25 Test Time: 14:26:57 Racing Manager: TANMAY MEASUREMENT RESULTS: Intervals: Rate: 58 NH: 146 QRSD: 84 QT: 438 QTc: 429 Gates: P: 23 NH: 146 QRS: 12 T: 11 INTERPRETIVE STATEMENTS: Sinus bradycardia Otherwise normal ECG Compared to ECG 10/23/2022 13:02:56 Sinus rhythm no longer present Electronically Signed On 10-26-22 15:21:15 CDT by Harvinder Dubois
== END 2022-10-25 15:15 | disposition home or self-care (01) ==
LOC: ER 11:56
DX: R56.9 Unspecified convulsions (principal); T41.45XA Adverse effect of unspecified anesthetic, initial encounter
CPT/HCPCS: 93005; 85025; 80048; 36415; 83735; 85610; 85730; 84484; 70450; 70551; 96360; 99284; J7030